=== PATIENT | male | born 1970 | race Caucasian/White ===

== ENCOUNTER 2016-10-18 00:12 | Emergency (ER) | payer OTHER ==
[~2016-10-18 00:12] MED LIST: ACETAMINOPHEN PO; ACETAMINOPHEN325 MG PO; ACETAMINOPHEN500 M2 PO; ACETAMINOPHEN650 M4 PO; ADVAIR 250-501 EACH IH; ALB/IPRATROPIUM/1 E1 INH; ALBUTEROL 0.5ML; ALBUTEROL 0.5ML INH; ALBUTEROL17 G1 IH; ALBUTEROL17 GM; ALBUTEROL17 GM INH; ALBUTEROL2.5 MG/0.5 IH; ALBUTEROL20 ml INH; AMITRYPTYLINE PO; AMLODIPINE BESYL5 MG PO; ASPIRIN PO; ASPIRIN81 M2 PO; ATARAX PO; AUGMENTIN PO; BACTRIM DS TABL1 TA1 PO; BACTROBAN22 GM TP; CELEXA PO; CELEXA10 MG PO; CERTAGEN PO; CIPRO PO; COMBIVENT INH14.7 GM INH; COMBIVENT MININEB INH; COMBIVENT RESPIM4 GM IH; COMBIVENT RESPIM4 GM INH; COMBIVENT U/D3 M1 INH; COMBIVENT U/D3 M2 INH; DAILY MULTIVITA1 TA1 PO; DALIRESP500 MCG PO; DELTASONE20 MG PO; DEPAKOTE; DEPAKOTE PO; DESYREL100 MG PO; DESYREL300 MG PO; DOXYCYCLINE HY100 M3 PO; DUONEB 2.5-0.5 M3 ML NEB; FERRO-TIME325 MG PO; FERROUS GLUCON324 MG PO; FLEXERIL PO; FLOMAX0.4 M1 PO; FLOMAX0.4 MG PO; FLONASE16 GM; FLUOXETINE HCL40 M1 PO; FOLATE PO; FOLIC ACID PO; FOLIC ACID1 MG PO; FUROSEMIDE40 MG PO; GABAPENTIN800 MG PO; HURRICAINE; HYDROCODON-ACE1 EAC5 PO; HYDROCODON-ACE1 EAC7 PO; HYDROCODON-ACE1 EAC9 PO; HYDROCODONE-A1 UDTA4 PO; HYDROCODONE-APA1 T30 PO; HYDROCODONE/APA1 T16 PO; HYDROXYZINE HCL50 MG PO; IBUPROFEN800 MG PO; IRON TABLETS1 TAB PO; IRON325 ( 65 ) PO; IRON325 ( 651 PO; K-DUR20 ME2 PO; KCL PO; KEFLEX PO; LASIX PO; LASIX20 MG PO; LEVAQUIN750 MG PO; LEVOFLOXACIN750 MG PO; LIBRAX CAPSULE1 CAP PO; LIBRIUM PO; LISINOPRIL10 MG PO; LOPRESSOR PO; LORTAB 7.5-3251 EACH PO; LORTAB 7.5-5001 TAB PO; MEDROL DOSEPAK4 MG DOB; MEDROL PO; MEDROL4 MG/DOSE-; METOPROLOL SUCC25 MG PO; METOPROLOL TAR25 MG PO; METOPROLOL TART25 MG PO; MULTI VITAMIN1 EACH PO; MULTI-VIT/MIN P1 TAB PO; MULTIVITAMIN W/1 TAB PO; NEURONTIN PO; NEURONTIN300 MG PO; NEURONTIN800 MG PO; NICOTINE PATCH1 EACH TD; NICOTINE T1 PATCH .2 TOP; NICOTINE TRANSD21 MG EXT; NICOTINE TRANSD21 MG TD; NORCO 10-325 TA1 TAB PO; NORCO1 TAB 10/3 DOB; PERCOCET 7.5-31 EACH PO; PREDNISONE PO; PREDNISONE10 MG PO; PREDNISONE10 MG/DOSE PO; PREVACID; PRILOSEC PO; PRINIVIL5 MG PO; PROAIR RESPICL90 MCG; PROTONIX PO; PROZAC PO; PROZAC40 M1 PO; PROZAC40 MG PO; REQUIP0.25 MG PO; REQUIP0.5 MG PO; REQUIP2 MG PO; RESTORIL7.5 MG PO; ROPINIROLE HCL0.5 MG PO; ROPINIROLE HCL1 MG PO; ROXICODONE5 MG PO; SIMVASTATIN10 MG PO; SPIRIVA18 MCG INH; SYMBICORT INH; SYMBICORT80 INH; THIAMINE HCL100 M2 PO; THIAMINE HCL100 MG PO; TOPAMAX PO; TOPROL XL PO; TRAZADONE PO; TRAZODONE; TRAZODONE HCL100 MG PO; TRAZODONE HCL150 MG PO; TRAZODONE HCL300 MG PO; TRAZODONE PO; TYL325 PO; TYLENOL325 M1 PO; VENTOLIN5 MG/ML; VIBRAMYCIN100 M1 DOB; VISTARIL PO; VISTARIL50 MG PO; ZESTRIL10 M1 PO; ZITHROMAX PO; ZITHROMAX1 G/PKT PO; ZYVOX600 MG PO; [UNRECOGNIZED DRUG - OTHER] PO
== END 2016-10-18 01:31 | disposition left against medical advice (07) ==
LOC: CED 00:12
DX: Z53.21 Procedure and treatment not carried out due to patient leaving prior to being seen by health care provider (principal)

== ENCOUNTER 2016-10-19 13:53 | Emergency (ER) | payer OTHER | END 2016-10-20 07:47 | disposition home or self-care (01) | LOC: CFTX 13:53 | DX: F10.129 Alcohol abuse with intoxication, unspecified (principal); J44.9 Chronic obstructive pulmonary disease, unspecified; I50.9 Heart failure, unspecified; I48.91 Unspecified atrial fibrillation; F32.9 Major depressive disorder, single episode, unspecified; F17.210 Nicotine dependence, cigarettes, uncomplicated; Z79.82 Long term (current) use of aspirin; Z79.899 Other long term (current) drug therapy | CPT/HCPCS: 94640; 99282 ==

== ENCOUNTER 2016-10-23 02:13 | Emergency (ER) | payer OTHER | END 2016-10-23 07:04 | disposition home or self-care (01) | LOC: CED 02:13 | DX: J44.1 Chronic obstructive pulmonary disease with (acute) exacerbation (principal); F10.129 Alcohol abuse with intoxication, unspecified; F17.210 Nicotine dependence, cigarettes, uncomplicated | CPT/HCPCS: 94640; 99283 ==

== ENCOUNTER 2016-10-23 11:26 | Emergency (ER) | payer OTHER ==
--- NOTE | ~2016-10-23 | EKG ---
PATIENT: IVONE JUSTIN UNIT #: [id number] Ventricular Rate: 101 BPM Atrial Rate: 101 BPM P-R Interval: 152 ms QRS Duration: 98 ms Q-T Interval: 342 ms QTC Calculation(Bezet): 443 ms P [place]: 47 degrees Calculated R [place]: -26 degrees Calculated T [place]: 85 degrees Diagnosis Line: Sinus tachycardia Diagnosis Line: Nonspecific T wave abnormality Diagnosis Line: Abnormal ECG Diagnosis Line: Diagnosis Line: Confirmed by SKY ALVAREZ MD ([id number]) on Diagnosis Line: 10/24/2016 11:47:59 AM INTERPRETING MD: ERIN
--- NOTE | ~2016-10-23 | CR72 ---
[facility] A Service of [facility] & [facility] RADIOLOGY TEXT RESULTS PATIENT: IVONE JUSTIN LOCATION: [facility] : 69 UNIT #: [id number] AGE: [address]: Veronica Atwood MD SEX: M ORDER DR: [id number] [facility] [address] [place], [place] [address] [id number] E MR#: [id number] Acc #: [id number] NAME: IVONE JUSTIN : 1970 SEX: M STUDY DATE/TIME: 10/23/2016 11:50 UNIT: [facility] ROOM: STUDY DESCRIPTION: CR Chest Single View Portable Attending Physician: Veronica Atwood M.D. Ordering Physician: Veronica Awtood M.D. Primary Care Physician: No Primary Care Physician MEDICAL IMAGING REPORT This report is preliminary unless electronic signature is present EXAM Single portable AP view of the chest performed on 10/23/2016 at 1150 hours. CLINICAL HISTORY 46-year-old male with shortness of breath. FINDINGS In comparison to the previous exam of 10/21/2016, there has been improvement in the aeration of the left lung base. No acute pulmonary infiltrate or consolidation is seen. The heart remains borderline enlarged. No pneumothorax or pleural effusion is now present. Some granulomatous calcifications are noted particularly in the right lung base. IMPRESSION Stable cardiac enlargement but improvement in the aeration of the left lung base since 10/21/2016. Remaining heart and lungs unchanged. Dictated by... Pio Ortiz M.D. THIS IS AN ELECTRONICALLY VERIFIED REPORT Pio Ortiz M.D. at 10/23/2016 7:02 PM RP/jennifer TD: 10/23/2016 14:02 JOB #: [id number] MEDICAL IMAGING REPORT COPY
[2016-10-23 12:46] LABS: INFLUENZA A NEG (NEG); INFLUENZA B NEG (NEG)
[2016-10-23 13:45] LABS: POC - CKMB 1.7 ng/mL (0.0-7.9); POC - TROPONIN <0.05 ng/mL (<=0.05)
[2016-10-23 13:56] LABS: BASOPHIL% 0.2 % (0-2.5); HEMATOCRIT 34.9 % (38.0-50.0); HEMOGLOBIN 11.2 gm/dL (13.0-16.0); LYMPHOCYTE# 0.5 X10e3 (1.0-3.5); LYMPHOCYTE% 8.7 % (17.0-45.0); MEAN CELL VOLUME 86.1 FL (83-96); MEAN CORPUSCULAR HEMOGLOBIN 27.6 PG (28-34); MEAN CORPUSCULAR HGB CONC 32.1 g/dL (30-36); MEAN PLATELET VOLUME 7.4 FL (6.5-11.5); MONOCYTE# 0.3 X10e3 (0-1.0); MONOCYTE% 6.4 % (3.0-12.0); NEUTROPHIL# 4.5 X10e3 (1.5-7.1); NEUTROPHIL% 84.7 % (40-75); PLATELET COUNT 176 X10e3 (140-420); RED BLOOD COUNT 4.05 X10e (3.90-5.60); RED CELL DISTRIBUTION WIDTH 18.7 % (11.0-15.5); WHITE BLOOD COUNT 5.3 X10e3 (4.0-10.5)
[2016-10-23 14:01] LABS: DIFF IND NO
[2016-10-23 14:12] LABS: PARTIAL THROMBOPLASTIN TIME 20.9 SECONDS (23.5-31.3); PROTHROMBIN TIME (PATIENT) 10.6 SECONDS (9.6-11.5)
[2016-10-23 14:23] LABS: ALBUMIN SERUM 3.6 g/dL (3.5-5.0); ALKALINE PHOSPHATASE 106 U/L (32-92); ALT (SGPT) 46 U/L (10-40); AST (SGOT) 29 U/L (10-42); BILIRUBIN, DIRECT 0.1 mg/dL (0.0-0.2); BILIRUBIN,INDIRECT 0.2 mg/dL (0.0-0.9); BILIRUBIN,TOTAL 0.3 mg/dL (0.2-2.0); BLOOD UREA NITROGEN 7 mg/dL (9-23); BUN/CREATININE RATIO 11.66; CARBON DIOXIDE 29 mmol/L (22-31); CHLORIDE 101 mmol/L (100-111); CREATININE SERUM 0.6 mg/dL (0.6-1.4); GLOM FILT RATE Estimated ABOVE60 mL/min (>60); GLUCOSE FASTING 147 mg/dL (70-110); POTASSIUM 3.8 mmol/L (3.5-5.1); PROTEIN TOTAL SERUM 6.6 g/dL (6.0-8.3); SODIUM 142 mmol/L (135-145)
== END 2016-10-23 14:40 | disposition home or self-care (01) ==
LOC: CED 11:26
PROVIDERS: Emergency Medicine
DX: J44.1 Chronic obstructive pulmonary disease with (acute) exacerbation (principal); F10.129 Alcohol abuse with intoxication, unspecified; F32.9 Major depressive disorder, single episode, unspecified; Z86.718 Personal history of other venous thrombosis and embolism; Z86.711 Personal history of pulmonary embolism; F17.200 Nicotine dependence, unspecified, uncomplicated
CPT/HCPCS: 36415; 71010; 80048; 80076; 82553; 83880; 84484; 85025; 85610; 85730; 87804; 93005; 96365; 96375; 99284; G0480; J2930; J3475

== ENCOUNTER 2016-10-23 18:51 | Emergency (ER) | payer OTHER | END 2016-10-24 06:52 | disposition home or self-care (01) | LOC: CED 18:51 | DX: F10.129 Alcohol abuse with intoxication, unspecified (principal); Y90.9 Presence of alcohol in blood, level not specified; J44.9 Chronic obstructive pulmonary disease, unspecified; I10 Essential (primary) hypertension; I48.91 Unspecified atrial fibrillation; F17.200 Nicotine dependence, unspecified, uncomplicated; Z88.8 Allergy status to other drugs, medicaments and biological substances; Z79.899 Other long term (current) drug therapy | CPT/HCPCS: 94640; 99282 ==

== ENCOUNTER 2016-10-25 14:07 | Emergency (ER) | payer OTHER ==
--- NOTE | ~2016-10-25 | CR72 ---
[facility] A Service of [facility] RADIOLOGY TEXT RESULTS PATIENT: IVONE JUSTIN LOCATION: [facility] : 68 UNIT #: [id number] AGE: [address]: Sienna Perez MD SEX: M ORDER DR: [id number] [address] [place], [place] [address] [id number] E MR#: [id number] Acc #: [id number] NAME: IVONE JUSTIN : 1970 SEX: M STUDY DATE/TIME: 10/25/2016 11:07 UNIT: [facility] ROOM: STUDY DESCRIPTION: CR Chest Single View Portable Attending Physician: Sienna Perez M.D. Ordering Physician: Sienna Perez M.D. Primary Care Physician: No Primary Care Physician MEDICAL IMAGING REPORT This report is preliminary unless electronic signature is present EXAM Portable chest x-ray, 10/25/2016. HISTORY Short of air. Irregular heartbeat, seizures, anxiety, depression. Drinks 1/2 gallon vodka daily. Body pain, EtOH. Symptoms began this a.m. TECHNIQUE AP radiograph of the chest is presented. COMPARISON 10/14/2016 FINDINGS Evidence of prior orthopedic intervention left humerus. No acute-appearing bony abnormality. Stable mild cardiac enlargement. Lung volumes moderate. Linear scarring at the left lung base stable. Calcified granulomata right lung base stable. No acute pulmonary disease, pleural effusion, or pneumothorax. No suspicious nodule. Dictated by... Kirby Allan M.D. THIS IS AN ELECTRONICALLY VERIFIED REPORT Kirby Allan M.D. at 10/26/2016 11:43 AM NIKIA/jennifer TD: 10/25/2016 14:19 JOB #: [id number] MEDICAL IMAGING REPORT [facility] A Service [facility] RADIOLOGY TEXT RESULTS PATIENT: IVONE JUSTIN LOCATION: [facility] : 68 UNIT #: [id number] AGE: [address]: Sienna Perez MD SEX: M ORDER DR: COPY
== END 2016-10-25 15:00 | disposition home or self-care (01) ==
LOC: CED 14:07
DX: F10.129 Alcohol abuse with intoxication, unspecified (principal); F17.200 Nicotine dependence, unspecified, uncomplicated; Z88.8 Allergy status to other drugs, medicaments and biological substances; Z79.899 Other long term (current) drug therapy; Z79.82 Long term (current) use of aspirin
CPT/HCPCS: 71010; 94640; 99283

== ENCOUNTER 2016-11-01 23:58 | Emergency (ER) | payer OTHER | END 2016-11-02 04:05 | disposition left against medical advice (07) | LOC: CED 23:58 | DX: F10.229 Alcohol dependence with intoxication, unspecified (principal); F17.210 Nicotine dependence, cigarettes, uncomplicated; R56.9 Unspecified convulsions; K21.9 Gastro-esophageal reflux disease without esophagitis; J44.9 Chronic obstructive pulmonary disease, unspecified; Z88.8 Allergy status to other drugs, medicaments and biological substances; Z91.018 Allergy to other foods | CPT/HCPCS: 99282 ==

== ENCOUNTER 2016-11-02 08:00 | Emergency (ER) | payer OTHER ==
--- NOTE | ~2016-11-02 | EKG ---
PATIENT: IVONE JUSTIN UNIT #: [id number] Ventricular Rate: 91 BPM Atrial Rate: 91 BPM P-R Interval: 158 ms QRS Duration: 100 ms Q-T Interval: 342 ms QTC Calculation(Bezet): 420 ms P [place]: 33 degrees Calculated R [place]: -16 degrees Calculated T [place]: 58 degrees Diagnosis Line: Sinus rhythm with frequent Premature ventricular Diagnosis Line: complexes Diagnosis Line: Otherwise normal ECG Diagnosis Line: No previous ECGs available Diagnosis Line: Confirmed by IZAIAH CANAS MD ([id number]) on 11/02/2016 Diagnosis Line: 5:46:28 PM INTERPRETING MD: FLORESITA CARRANZA
--- NOTE | ~2016-11-02 | CR72 ---
[facility] A Service of [facility] & [facility] RADIOLOGY TEXT RESULTS PATIENT: IVONE JUSTIN LOCATION: [facility] : 68 UNIT #: [id number] AGE: [address]: Arielle Hernandez MD SEX: M ORDER DR: [id number] [facility] [address] [place], [place] [address] [id number] E MR#: [id number] Acc #: [id number] NAME: IVONE JUSTIN : 1970 SEX: M STUDY DATE/TIME: 11/02/2016 8:13 UNIT: [facility] ROOM: STUDY DESCRIPTION: CR Chest Single View Portable Attending Physician: Arielle Hernandez M.D. Ordering Physician: Arielle Hernandez M.D. Primary Care Physician: Primary Care Physician No MEDICAL IMAGING REPORT This report is preliminary unless electronic signature is present EXAM Portable chest x-ray, 11/03/2016 HISTORY Chest pain. Heart racing. Symptoms began today. FINDINGS AP left anterior oblique view of the chest is presented. The comparison is from 10/25/2016. Prior orthopedic intervention left humerus. Stable cardiac enlargement. The lungs are well inflated. Minimal linear scarring left lung base. There is no clear indication of acute pulmonary disease, pleural effusion or pneumothorax. No suspicious nodule. Dictated by... Kirby Allan M.D. THIS IS AN ELECTRONICALLY VERIFIED REPORT Kirby Allan M.D. at 11/03/2016 7:54 AM Patti TD: 11/02/2016 09:38 JOB #: [id number] MEDICAL IMAGING REPORT COPY
[2016-11-02 08:47] LABS: BASOPHIL% 0.3 % (0-2.5); EOSINOPHIL% 0.2 % (0.0-7.0); HEMATOCRIT 33.1 % (38.0-50.0); HEMOGLOBIN 10.7 gm/dL (13.0-16.0); LYMPHOCYTE% 32.1 % (17.0-45.0); MEAN CELL VOLUME 87.1 FL (83-96); MEAN CORPUSCULAR HEMOGLOBIN 28.2 PG (28-34); MEAN CORPUSCULAR HGB CONC 32.3 g/dL (30-36); MEAN PLATELET VOLUME 8.2 FL (6.5-11.5); MONOCYTE# 1.1 X10e3 (0-1.0); MONOCYTE% 18.3 % (3.0-12.0); NEUTROPHIL% 49.1 % (40-75); PLATELET COUNT 135 X10e3 (140-420); RED CELL DISTRIBUTION WIDTH 18.9 % (11.0-15.5); WHITE BLOOD COUNT 6.2 X10e3 (4.0-10.5)
[2016-11-02 08:48] LABS: DIFF IND NO
[2016-11-02 09:23] LABS: ALBUMIN SERUM 3.4 g/dL (3.5-5.0); ALKALINE PHOSPHATASE 72 U/L (32-92); ALT (SGPT) 176 U/L (10-40); AST (SGOT) 90 U/L (10-42); BILIRUBIN, DIRECT 0.1 mg/dL (0.0-0.2); BILIRUBIN,INDIRECT 0.1 mg/dL (0.0-0.9); BILIRUBIN,TOTAL 0.2 mg/dL (0.2-2.0); BLOOD UREA NITROGEN 20 mg/dL (9-23); BUN/CREATININE RATIO 22.22; CALCIUM SERUM 8.8 mg/dL (8.4-10.2); CARBON DIOXIDE 26 mmol/L (22-31); CHLORIDE 93 mmol/L (100-111); CREATININE SERUM 0.9 mg/dL (0.6-1.4); GLOM FILT RATE Estimated ABOVE60 mL/min (>60); GLUCOSE FASTING 149 mg/dL (70-110); LIPASE 30 U/L (22-51); POTASSIUM 3.5 mmol/L (3.5-5.1); PROTEIN TOTAL SERUM 5.8 g/dL (6.0-8.3); SODIUM 130 mmol/L (135-145)
[2016-11-02 09:26] LABS: ALCOHOL BLOOD 308 mg/dL (0)
[2016-11-02 09:50] LABS: URINE SOURCE CLEAN CATCH
[2016-11-02 09:54] LABS: URINE APPEARANCE CLOUDY; URINE BILIRUBIN NEG (NEG); URINE BLOOD 3+ (NEG); URINE COLOR YELLOW; URINE GLUCOSE NEG (NEG); URINE KETONE TRACE (NEG); URINE LEUKOCYTE ESTERASE NEG (NEG); URINE NITRATE NEG (NEG); URINE PROTEIN 1+ (NEG); URINE SPECIFIC GRAVITY 1.021 (1.003-1.035); URINE UROBILINOGEN 0.2 MG/DL (NEG)
[2016-11-02 09:57] LABS: URBCS1 AUWI 100-200 /[HPF] (0-2); URINE BACTERIA AUWI NEG (NEGATIVE); URINE SQUAMOUS EPITHELIAL CELL OCC /[HPF]
[2016-11-02 10:08] LABS: CULTURE INDICATED? NO
[2016-11-02 10:09] LABS: URINE MUCUS PRESENT
[2016-11-02 10:22] LABS: AMPHETAMINE NEG (NEG); BARBITURATES NEG (NEG); BENZODIAZEPINES POS (NEG); COCAINE NEG (NEG); MARIJUANA NEG (NEG); OPIATES POS (NEG); TRICYCLIC ANTIDEPRESSANTS NEG (NEG); U METHADONE NEG (NEG)
== END 2016-11-02 14:18 | disposition left against medical advice (07) ==
LOC: CED 08:00
PROVIDERS: Student in an Organized Health Care Education/Training Program
DX: F10.129 Alcohol abuse with intoxication, unspecified (principal); I95.9 Hypotension, unspecified; R79.89 Other specified abnormal findings of blood chemistry; J44.9 Chronic obstructive pulmonary disease, unspecified; F17.200 Nicotine dependence, unspecified, uncomplicated; Z91.018 Allergy to other foods; Z88.8 Allergy status to other drugs, medicaments and biological substances
CPT/HCPCS: 36415; 71010; 80048; 80076; 80307; 81003; 82550; 83605; 83690; 83735; 83880; 85025; 87040; 93005; 94640; 96361; 96365; 96366; 96375; 99284; C9113; G0480; J2405; J3411; J3475

== ENCOUNTER 2016-11-02 18:25 | Emergency (ER) | payer OTHER | END 2016-11-02 23:48 | disposition home or self-care (01) | LOC: CED 18:25 | DX: F10.129 Alcohol abuse with intoxication, unspecified (principal); J44.9 Chronic obstructive pulmonary disease, unspecified; K21.9 Gastro-esophageal reflux disease without esophagitis; I50.9 Heart failure, unspecified; F17.200 Nicotine dependence, unspecified, uncomplicated | CPT/HCPCS: 99282 ==

== ENCOUNTER 2016-11-05 21:37 | Emergency (ER) | payer OTHER ==
--- NOTE | ~2016-11-05 | CR72 ---
[facility] A Service of [facility] & [facility] RADIOLOGY TEXT RESULTS PATIENT: IVONE JUSTIN LOCATION: [facility] : 68 UNIT #: [id number] AGE: [address]: Vlad Gomez MD SEX: M ORDER DR: [id number] [facility] [address] [place], [place] [address] [id number] E MR#: [id number] Acc #: [id number] NAME: IVONE JUSTIN : 1970 SEX: M STUDY DATE/TIME: 11/05/2016 21:18 UNIT: [facility] ROOM: STUDY DESCRIPTION: CR Chest Single View Portable Attending Physician: Vlad Gomez Ordering Physician: Odilon Sherman D.O. Primary Care Physician: Primary Care Physician No MEDICAL IMAGING REPORT This report is preliminary unless electronic signature is present EXAM Portable chest, 11/05/2016 HISTORY Shortness of breath, dizziness and chest pain today. FINDINGS The heart is enlarged but stable compared with 11/03/2016. There is poor inspiratory result with bibasilar discoid atelectasis. Underlying COPD. There are no pleural effusions. IMPRESSION No change compared with 11/03/2016. Dictated by... Dev Reyes M.D. THIS IS AN ELECTRONICALLY VERIFIED REPORT Dev Reyes M.D. at 11/06/2016 10:50 AM MICKEY/ousmane TD: 11/06/2016 04:48 JOB #: [id number] MEDICAL IMAGING REPORT COPY
--- NOTE | ~2016-11-05 | EKG ---
PATIENT: IVONE JUSTIN UNIT #: [id number] Ventricular Rate: 76 BPM Atrial Rate: 76 BPM P-R Interval: 164 ms QRS Duration: 98 ms Q-T Interval: 390 ms QTC Calculation(Bezet): 438 ms P [place]: 54 degrees Calculated R [place]: -26 degrees Calculated T [place]: 31 degrees Diagnosis Line: Normal sinus rhythm Diagnosis Line: Incomplete right bundle branch block Diagnosis Line: Borderline ECG Diagnosis Line: When compared with ECG of 02-NOV-2016 07:42, Diagnosis Line: Premature ventricular complexes are no longer Diagnosis Line: Present Diagnosis Line: Incomplete right bundle branch block is now Diagnosis Line: Present Diagnosis Line: Confirmed by BISHNU SWANSON MD ([id number]) on Diagnosis Line: 11/06/2016 3:26:43 PM INTERPRETING MD: SKY CARRANZA
[2016-11-06 00:31] LABS: BASOPHIL# 0.1 X10e3 (0-0.3); BASOPHIL% 1.1 % (0-2.5); EOSINOPHIL% 0.4 % (0.0-7.0); HEMATOCRIT 34.7 % (38.0-50.0); HEMOGLOBIN 10.8 gm/dL (13.0-16.0); LYMPHOCYTE# 1.6 X10e3 (1.0-3.5); LYMPHOCYTE% 29.3 % (17.0-45.0); MEAN CELL VOLUME 88.8 FL (83-96); MEAN CORPUSCULAR HEMOGLOBIN 27.7 PG (28-34); MEAN CORPUSCULAR HGB CONC 31.2 g/dL (30-36); MEAN PLATELET VOLUME 7.8 FL (6.5-11.5); MONOCYTE# 0.6 X10e3 (0-1.0); MONOCYTE% 11.4 % (3.0-12.0); NEUTROPHIL# 3.1 X10e3 (1.5-7.1); NEUTROPHIL% 57.8 % (40-75); PLATELET COUNT 172 X10e3 (140-420); RED BLOOD COUNT 3.91 X10e (3.90-5.60); RED CELL DISTRIBUTION WIDTH 19.8 % (11.0-15.5); WHITE BLOOD COUNT 5.4 X10e3 (4.0-10.5)
[2016-11-06 00:34] LABS: DIFF IND NO
[2016-11-06 00:57] LABS: ALBUMIN SERUM 3.3 g/dL (3.5-5.0); ALKALINE PHOSPHATASE 89 U/L (32-92); ALT (SGPT) 84 U/L (10-40); AST (SGOT) 26 U/L (10-42); BILIRUBIN, DIRECT 0.1 mg/dL (0.0-0.2); BILIRUBIN,INDIRECT 0.3 mg/dL (0.0-0.9); BILIRUBIN,TOTAL 0.4 mg/dL (0.2-2.0); BLOOD UREA NITROGEN <5 mg/dL (9-23); CALCIUM SERUM 8.9 mg/dL (8.4-10.2); CARBON DIOXIDE 26 mmol/L (22-31); CHLORIDE 102 mmol/L (100-111); CREATININE SERUM 0.4 mg/dL (0.6-1.4); GLOM FILT RATE Estimated ABOVE60 mL/min (>60); GLUCOSE FASTING 112 mg/dL (70-110); POTASSIUM 3.7 mmol/L (3.5-5.1); PROTEIN TOTAL SERUM 5.8 g/dL (6.0-8.3); SODIUM 139 mmol/L (135-145)
== END 2016-11-06 07:20 | disposition left against medical advice (07) ==
LOC: CED 21:37
PROVIDERS: Emergency Medicine
DX: R04.2 Hemoptysis (principal); F10.129 Alcohol abuse with intoxication, unspecified; J44.9 Chronic obstructive pulmonary disease, unspecified; I48.91 Unspecified atrial fibrillation; I10 Essential (primary) hypertension; F17.210 Nicotine dependence, cigarettes, uncomplicated; Z88.8 Allergy status to other drugs, medicaments and biological substances
CPT/HCPCS: 71010; 80048; 80076; 82947; 85025; 93005; 94640; 99283; 99284

== ENCOUNTER 2016-11-07 17:39 | Inpatient (IN) | payer OTHER ==
--- NOTE | ~2016-11-07 | DS ---
Unit #: [id number] #: [id number] Patient: IVONE JUSTIN [id number] [place] [address] [id number] I MR#: [id number] NAME: IVONE JUSTIN ROOM: [facility] Age: 46 Sex: M Admission Date: 11/07/2016 : 1970 Discharge Date: 11/14/2016 Attending Physician: Anish Ramos M.D. Primary Care Physician: Primary Care Physician No DISCHARGE SUMMARY REASON FOR ADMISSION The patient is a 46-year-old white male, admitted to the [facility] with increasing abuse of alcohol and suicidal ideation. HOSPITAL COURSE The patient was admitted to the [facility] and placed on suicide precautions. Unfortunately, no bed became available in one of the chemical dependency treatment units, so the patient's detox was undertaken on the [facility] unit. He was continued on previously prescribed medications and Motrin 800 mg q.i.d. was added for bruising and bruised ribs. The patient complained of cough and was begun on Humibid LA, Mucinex. His detox was a bit more arduous than previous detoxifications have been, probably owing to the fact that the patient had been out of the hospital and had been drinking more heavily for some time. By 11/14/2016, however, the patient's detox was complete. He exhibited no signs or symptoms of withdrawal and discharge was ordered. FINAL DIAGNOSES Dysthymic disorder, alcohol use disorder, benign prostatic hypertrophy, chronic obstructive pulmonary disease, chronic pain, restless legs syndrome, benign prostatic hypertrophy. DISPOSITION ON DISCHARGE The patient is discharged on the following lengthy list of medications; Humibid LA, Mucinex 600 mg b.i.d. for cough, Lotrisone apply b.i.d. to affected areas for rash, Symbicort 2 puffs b.i.d. for shortness of air, Proventil HFA 2 puffs q.4 hours p.r.n. shortness of air, Flomax 0.4 mg daily for benign prostatic hypertrophy, Requip 0.25 mg at bedtime for restless legs syndrome, Protonix 40 mg once daily for GERD, Motrin 800 mg q.8 hours p.r.n. pain, Neurontin 800 mg q.i.d. for pain, Lasix 20 mg daily for diuresis, Desyrel 300 mg at h.s. for insomnia, Prozac 40 mg daily for depression, Vistaril 50 mg q.6 hours p.r.n. anxiety. DISCHARGE INSTRUCTIONS No dietary or physical restrictions were placed upon the patient at the time of discharge. FOLLOWUP Followup will take place through the auspices of community mental health resources. PROGNOSIS The patient's prognosis remains guarded. Unit #: [id number] #: [id number] Patient: IVONE JUSTIN Dictated by... Anish Ramos M.D. CB/favian TD: 11/15/2016 01:27 JOB #: [id number] DISCHARGE SUMMARY Page 1 of 1 X Anish Ramos MD X DISCHARGE SUMMARY
--- NOTE | ~2016-11-07 | PN ---
Unit #: [id number] #: [id number] Patient: IVONE JUSTIN [id number] [facility] [address] [place] [address] [id number] I MR#: [id number] NAME: IVONE JUSTIN ROOM: [facility]6 Age: 46 Sex: M Admission Date: 11/07/2016 : 1970 Attending Physician: Anish Ramos M.D. Admitting Physician: Anish Ramos M.D. Primary Care Physician: Primary Care Physician Emma RUTH PROGRESS NOTES DATE 11/10/2016 DISCUSSION The patient offers no new complaints today. He denies suicidal ideation, and his detox continues uneventfully. He is looking towards [facility] house placement, and I have told him to expect a.m. discharge. Dictated by... Anish Ramos M.D. CB/cleo TD: 11/11/2016 07:03 JOB #: [id number] [facility] PROGRESS NOTES X Anish Ramos MD PROGRESS NOTE
--- NOTE | ~2016-11-07 | PN ---
Unit #: [id number] #: [id number] Patient: IVONE JUSTIN [id number] [facility] [address] [place] [address] [id number] I MR#: [id number] NAME: IVONE JUSTIN ROOM: [facility] Age: 46 Sex: M Admission Date: 11/07/2016 : 1970 Attending Physician: Anish Ramos M.D. Admitting Physician: Anish Ramos M.D. Primary Care Physician: Primary Care Physician Emma RUTH PROGRESS NOTES DATE 11/11/2016 DISCUSSION The patient is today continuing to exhibit significant symptoms of alcohol withdrawal having required 2 doses of Ativan with his most recent CIWA score at approximately 25 minutes ago of 17. The patient is clearly still in active alcohol withdrawal, and discharge at this point would be unsafe and unwise. We will continue his current treatment. Dictated by... Anish Ramos M.D. CB/cleo TD: 11/11/2016 13:18 JOB #: [id number] [facility] PROGRESS NOTES X Anish Ramos MD PROGRESS NOTE
--- NOTE | ~2016-11-07 | PN ---
Unit #: [id number] #: [id number] Patient: IVONE JUSTIN [id number] [facility] [address] [place] [address] [id number] I MR#: [id number] NAME: IVONE JUSTIN ROOM: [facility]6 Age: 46 Sex: M Admission Date: 11/07/2016 : 1970 Attending Physician: Anish Ramos M.D. Admitting Physician: Anish Ramos M.D. Primary Care Physician: Primary Care Physician Emma RUTH PROGRESS NOTES DATE 11/09/2016 DISCUSSION The patient exhibits little in the way of signs or symptoms of withdrawal today. His expectations of inpatient care are today firmly redirected. He is expressing interest in residential chemical dependence treatment, but it is my belief that the patient has "burned bridges" with most if not all of the residential treatment facilities in the area. Dictated by... Anish Ramos M.D. CB/cleo TD: 11/09/2016 14:35 JOB #: [id number] [facility] PROGRESS NOTES X Anish Ramos MD PROGRESS NOTE
--- NOTE | ~2016-11-07 | PN ---
Unit #: [id number] #: [id number] Patient: IVONE JUSTIN [id number] [facility] [address] [place] [address] [id number] Shelia MR#: [id number] NAME: IVONE JUSTIN ROOM: [facility] Age: 46 Sex: M Admission Date: 11/07/2016 : 1970 Attending Physician: Anish Ramos M.D. Admitting Physician: Anish Ramos M.D. Primary Care Physician: Primary Care Physician Emma RUTH PROGRESS NOTES DATE 11/12/2016 DISCUSSION The patient continues to complain of severe symptoms of withdrawal. He remains tremulous and continues to require Ativan at virtually every stop. I will discontinue his CIWA protocol and base Ativan on objective vital signs rather than subjective symptoms at this time. Dictated by... Anish Ramos M.D. CB/laila TD: 11/12/2016 21:00 JOB #: [id number] [facility] PROGRESS NOTES X Anish Ramos MD PROGRESS NOTE
--- NOTE | ~2016-11-07 | HP ---
Unit #: [id number] #: [id number] Patient: TESSA JUSTIN [id number] [place] [address] [id number] I MR#: [id number] NAME: TESSA JUSTIN ROOM: [facility]256 Age: 46 Sex: M Admission Date: 11/07/2016 : 1970 Attending Physician: Anish Ramos M.D. Admitting Physician: Anish Ramos M.D. Primary Care Physician: Primary Care Physician No HISTORY AND PHYSICAL HISTORY OF PRESENT ILLNESS Tessa is a 46 year old admitted to [address] [place] [address] because of his continued abuse of alcohol. He has had numerous admissions to this facility for treatment of the same. PAST MEDICAL HISTORY 1. Long history of alcohol abuse. 2. COPD. 3. Morbid obesity. 4. GERD. 5. History of withdrawal seizures. 6. High blood pressure. 7. BPH. PAST SURGICAL HISTORY Nothing reported. ALLERGIES Morphine, Risperdal, Remeron. SOCIAL HISTORY Smokes 1 pack per day. Drinks alcohol on daily basis and denies illicit drug use. FAMILY HISTORY Medically noncontributory. REVIEW OF SYSTEMS CONSTITUTIONAL: No fever or chills. HEENT: Denies any sore throat, ear pain or runny nose. CARDIOVASCULAR: Denies chest pain, irregular heart rhythm or palpitations. CHEST: Denies shortness of breath or cough. No hemoptysis. GASTROINTESTINAL: Denies nausea, vomiting, diarrhea or chronic constipation. ENDOCRINE: Denies history of increased thirst or urination. No recent significant weight loss or gain. GENITOURINARY: Denies dysuria, frequency, or hematuria. SKIN: Denies any rashes. HEMATOLOGIC: Denies history of increased bleeding or bruising. MUSCULOSKELETAL: Denies any hot, swollen joints. No generalized muscle pain. NEUROLOGIC: Denies problems with vision or speech. No frequent, severe headaches. No numbness, tingling or weakness in any extremities. Denies Unit #: [id number] #: [id number] Patient: TESSA JUSTIN loss of bladder or bowel control. CURRENT MEDICATIONS 1. Detox protocol. 2. Trazodone 300 mg q.h.s. 3. Symbicort b.i.d. 4. Proventil inhaler p.r.n. 5. Flomax 0.4 mg daily. 6. Ibuprofen 800 mg q. 8 hours p.r.n. PHYSICAL EXAMINATION GENERAL: Alert, morbidly obese, no apparent distress. VITAL SIGNS: Blood pressure 140/72, heart rate 80, respirations 16, temperature 98.6. WEIGHT: 286. HEIGHT: 6 feet 4 inches. SKIN: Warm and dry without rash or lesion. HEENT: Normocephalic. TMs not viewed. Oral and nasal passages clear. Conjunctivae clear. PERRLA. EOMs intact. NECK: Supple without lymphadenopathy or thyromegaly. HEART: Regular rate and rhythm without murmur. LUNGS: Clear. ABDOMEN: Soft, nontender. : Not done. EXTREMITIES: No evidence of cyanosis, clubbing or edema. Moves all without focal deficit. NEUROLOGICAL: Grossly within normal limits. Cranial Nerves: II: Visual faulkner are intact. III, IV AND : Extraocular movements are intact. Pupils are equal, round and reactive to light. V: Facial sensation is grossly normal. VII: Facial movements and expression are normal. VIII: Auditory acuity grossly intact. IX, X: Uvula is midline. Phonation is normal. XI: Patient shrugs shoulders and turns head normally. XII: Tongue protrudes in the midline. Sensory and Motor Function: Sensory and motor sensation is grossly normal. Motor: moves all extremities well. Coordination: Gait is normal. Deep Tendon Reflexes: Intact. IMPRESSION Psychiatric admission. RECOMMENDATIONS PSYCHIATRIC: Per psychiatrist. MEDICAL: See no contraindications to participate in facility's activities. MEDICAL PROGNOSIS Good. MEDICAL CONDITION Stable. Dictated by... Tonia Jason P.A.-C. for Uli Hussein M.D. Unit #: [id number] #: [id number] Patient: TESSA JUSTIN JKATIE/dzh TD: 11/08/2016 18:34 JOB #: [id number] HISTORY AND PHYSICAL X Tonia Jason HISTORY AND PHYSICAL
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
--- NOTE | ~2016-11-07 | PN ---
Unit #: [id number] #: [id number] Patient: IVONE JUSTIN [id number] [facility] [address] [place] [address] [id number] MR#: [id number] NAME: IVONE JUSTIN ROOM: [facility]6 Age: 46 Sex: M Admission Date: 11/07/2016 : 1970 Attending Physician: Anish Ramos M.D. Admitting Physician: Anish Ramos M.D. Primary Care Physician: Primary Care Physician Emma RUTH PROGRESS NOTES DATE 11/13/2016 DISCUSSION The patient continues to exhibit some tachycardia possibly related to withdrawal but more likely related to his chronic obstructive pulmonary disease. I have told him to expect a.m. discharge. Dictated by... Anish Ramos M.D. KEARA/laila TD: 11/13/2016 18:46 JOB #: [id number] [facility] PROGRESS NOTES Page 1 of 1 X Anish Ramos MD X PROGRESS NOTE
== END 2016-11-14 14:45 | disposition home or self-care (01) | DRG 897 ==
LOC: P2S 17:39 → P2L 18:07
PROC: HZ2ZZZZ Detoxification Services for Substance Abuse Treatment (ICD-10-PCS; principal; 2016-11-07)
DX: F10.10 Alcohol abuse, uncomplicated (principal); E66.01 Morbid (severe) obesity due to excess calories; F34.1 Dysthymic disorder; F17.210 Nicotine dependence, cigarettes, uncomplicated; N40.0 Benign prostatic hyperplasia without lower urinary tract symptoms; J44.9 Chronic obstructive pulmonary disease, unspecified; G25.81 Restless legs syndrome
CPT/HCPCS: 86592

== ENCOUNTER 2016-11-14 19:39 | Emergency (ER) | payer OTHER ==
--- NOTE | ~2016-11-14 | CR72 ---
[facility] A Service of [facility] & [facility] RADIOLOGY TEXT RESULTS PATIENT: IVONE JUSTIN LOCATION: [facility] : [birth year] UNIT #: [id number] AGE: [address]: Vlad Moya MD SEX: M ORDER DR: [id number] [facility] [address] [place], [place] [address] [id number] E MR#: [id number] Acc #: [id number] NAME: IVONE JUSTIN : 1970 SEX: M STUDY DATE/TIME: 11/14/2016 21:42 UNIT: [facility] ROOM: STUDY DESCRIPTION: CR Chest Single View Portable Attending Physician: Vlad Moya M.D. Ordering Physician: Veronica Atwood M.D. Primary Care Physician: Primary Care Physician No MEDICAL IMAGING REPORT This report is preliminary unless electronic signature is present EXAM Portable chest x-ray 11/14/2016 HISTORY Short of air. Agitated. EtOH. Duration 1 day. FINDINGS AP radiograph of the chest is presented. Comparison 11/05/2016. Stable moderate cardiac enlargement. Lungs moderately well inflated. Pulmonary vasculature mildly prominent suggesting some degree of underlying vascular congestion. Patchy and linear densities in the left mid lung zone likely involve some areas of chronic scarring. Areas of acute atelectasis or mild pneumonitis should be considered as well. There is no dense airspace disease. No definite pleural effusion and no pneumothorax. No suspicious nodule. Healed granulomatous disease. Dictated by... Kirby Allan M.D. THIS IS AN ELECTRONICALLY VERIFIED REPORT Kirby Allan M.D. at 11/15/2016 2:19 PM NIKIA/jonathan TD: 11/15/2016 12:46 JOB #: [id number] MEDICAL IMAGING REPORT Page 1 of 1 COPY
== END 2016-11-15 09:35 | disposition home or self-care (01) ==
LOC: CED 19:39
DX: F10.229 Alcohol dependence with intoxication, unspecified (principal); J96.20 Acute and chronic respiratory failure, unspecified whether with hypoxia or hypercapnia; J44.1 Chronic obstructive pulmonary disease with (acute) exacerbation; F41.9 Anxiety disorder, unspecified; F32.9 Major depressive disorder, single episode, unspecified; I10 Essential (primary) hypertension; K21.9 Gastro-esophageal reflux disease without esophagitis
CPT/HCPCS: 71010; 94640; 96372; 99283; J1100

== ENCOUNTER 2016-11-15 13:30 | Emergency (ER) | payer OTHER | END 2016-11-16 20:34 | disposition left against medical advice (07) | LOC: CED 13:30 | DX: Z53.21 Procedure and treatment not carried out due to patient leaving prior to being seen by health care provider (principal) ==

== ENCOUNTER 2016-11-21 14:19 | Inpatient (IN) | payer OTHER ==
--- NOTE | ~2016-11-21 | XA166 ---
[facility] A Service of [facility] RADIOLOGY TEXT RESULTS PATIENT: IVONE JUSTIN LOCATION: C3A 340-01 : 69 UNIT #: [id number] AGE: [address]: Lm Schofield MD SEX: M ORDER DR: [id number] [id number] [facility]. [place], [place] [address] [id number] MR#: [id number] Acc #: [id number] NAME: IVONE JUSTIN : 1970 SEX: M STUDY DATE/TIME: 11/22/2016 14:11 UNIT: C3A PCU ROOM: 340 STUDY DESCRIPTION: XA PICC Line Placement WO Port Attending Physician: Lm Schofield M.D. Ordering Physician: Monique Maxwell M.D. Primary Care Physician: No Primary Care Physician MEDICAL IMAGING REPORT This report is preliminary unless electronic signature is present EXAM XA PICC line placement without port. DATE OF EXAM 11/22/2016 INDICATION 46-year-old male who needs IV access. PRE-PROCEDURE The procedure was explained to the patient and/or patient franchise sales representative including risks, benefits, potential complications and potential for alternative forms of treatment. Informed consent was obtained, and prior to initiating the procedure a formal timeout procedure was performed. PROCEDURE Using full standard sterile barrier technique, including caps, gowns, gloves, masks, as well as sterile skin preparation and standard sterile draping, the right arm (basilic vein) was prepped and draped in the usual fashion, and real-time sterile ultrasound guidance was used to localize an arm vein and to confirm vessel patency. A hard copy ultrasound image was recorded. After local anesthesia with 1% Xylocaine, the vein was punctured using real-time sterile ultrasound guidance, and an 0.018 guidewire was advanced into the superior vena cava, using fluoroscopic guidance. A 5-Zambian double-lumen (44 cm) PICC was then measured and deployed with the tip positioned in the superior vena cava. The position of the line was documented with a radiographic image. The line was secured in place with an adhesive dressing and an antibiotic patch was applied. Total fluoro time was 0.2 minutes. Reference air kerma 9 mGy. IMPRESSION [facility]. [facility] A Service of [facility] RADIOLOGY TEXT RESULTS PATIENT: IVONE JUSTIN LOCATION: C3A PC 340-01 : 68 UNIT #: [id number] AGE: [address]: Lm Schofield MD SEX: M ORDER DR: Successful placement of a 5-Zambian double-lumen (44 cm) PowerPICC via the right arm (basilic vein) under ultrasound and fluoroscopic guidance. The tip of the PICC is in good position in the superior vena cava. A single fluoroscopic spot image was obtained. Dictated by... Garth Rios M.D. THIS IS AN ELECTRONICALLY VERIFIED REPORT Garth Rios M.D. at 11/22/2016 4:31 PM LUIS/isa TD: 11/22/2016 16:16 JOB #: [id number] MEDICAL IMAGING REPORT Page 1 of 1 COPY
--- NOTE | ~2016-11-21 | EKG ---
PATIENT: IVONE JUSTIN UNIT #: [id number] Ventricular Rate: 79 BPM Atrial Rate: 79 BPM P-R Interval: 166 ms QRS Duration: 94 ms Q-T Interval: 388 ms QTC Calculation(Bezet): 444 ms P [place]: 45 degrees Calculated R [place]: -18 degrees Calculated T [place]: 60 degrees Diagnosis Line: Sinus rhythm with occasional and consecutive Diagnosis Line: Premature ventricular complexes and Fusion Diagnosis Line: complexes Diagnosis Line: Abnormal ECG Diagnosis Line: No previous ECGs available Diagnosis Line: Confirmed by IZAIAH CANAS MD ([id number]) on 11/22/2016 Diagnosis Line: 9:20:46 PM INTERPRETING MD: FLORESITA CARRANZA
--- NOTE | ~2016-11-21 | CR72 ---
[facility] A Service of [facility] RADIOLOGY TEXT RESULTS PATIENT: IVONE JUSTIN LOCATION: G[facility] PC 340-01 : 68 UNIT #: [id number] AGE: [address]: Lm Schofield MD SEX: M ORDER DR: [id number] [facility] [address] [facility]. [place], [place] [address] [id number] MR#: [id number] Acc #: [id number] NAME: IVONE JUSTIN : 1970 SEX: M STUDY DATE/TIME: 11/21/2016 14:34 UNIT: [facility] ROOM: STUDY DESCRIPTION: CR Chest Single View Portable Attending Physician: Veronica Atwood M.D. Ordering Physician: Veronica Atwood M.D. Primary Care Physician: No Primary Care Physician MEDICAL IMAGING REPORT This report is preliminary unless electronic signature is present EXAM Portable chest, 11/21/2016. HISTORY EtOH. Short of air today. Congestive heart failure. Heart disease. TECHNIQUE AP radiograph of the chest is presented. COMPARISON 11/14/2016 FINDINGS No acute-appearing bony abnormality. Healed fracture of the right humeral neck versus severe degenerative change. Stable cardiac enlargement. Lungs moderately well-inflated. Pulmonary vasculature remains prominent, suggesting underlying vascular congestion. Some patchy and linear densities in the left mid to lower lung zone, stable to marginally improved. Some component may represent chronic interstitial change. Components of mild atelectasis or pneumonitis could be considered. No dense airspace disease. No pleural effusion or pneumothorax. No suspicious nodule. Dictated by... Kirby Allan M.D. THIS IS AN ELECTRONICALLY VERIFIED REPORT Kirby Allan M.D. at 11/22/2016 5:13 PM NIKIA/meghana TD: 11/21/2016 18:05 [facility] A Service of [facility] RADIOLOGY TEXT RESULTS PATIENT: IVONE JUSTIN LOCATION: [facility] PC 340-01 : [birth year] UNIT #: [id number] AGE: [address]: Lm Schofield MD SEX: M ORDER DR: JOB #: [id number] MEDICAL IMAGING REPORT Page 1 of 1 COPY
--- NOTE | ~2016-11-21 | CO ---
Unit #: [id number] #: [id number] Patient: TESSA JUSTIN [id number] [facility] [address] [facility]. [place], [place] [address] [id number] I MR#: [id number] NAME: TESSA JUSTIN ROOM: 340 Age: 46 Sex: M Admission Date: 11/21/2016 : 1970 Attending Physician: Lm Schofield M.D. Primary Care Physician: No Primary Care Physician Consultation Date: 11/23/2016 CONSULTATION REPORT REASON FOR CONSULTATION Followup. DISCUSSION Mr. Tessa Justin is a 46-year-old male seen in room 340 on 11/23/16 at [facility]. The patient was compliant, cooperative. The patient denied any thoughts of harming self or others. Compliant, cooperative, able to answer questions appropriately. The patient has a sitter. Reports that he is feeling better and does not feel that he needs to go to [facility]. The patient has been compliant with treatment. Denied any psychotic symptoms or any suicidal ideation. REVIEW OF SYSTEMS A complete review of systems is unremarkable. MENTAL STATUS EXAMINATION General appearance - Patient is dressed casually. Attention span, concentration - Fair. Patient receiving oxygen through nasal cannula. Speech - Regular rate, coherent. Oriented to time, place and person. Mood and affect - Sad, dysphoric. Thought process - Coherent. Thought content - Patient denied any thoughts of harming self or others. Recent and remote memory - Fair. Language - Able to name objects, repeat phrases. Fund of knowledge - Fair. Insight and judgment - Fair to slightly impaired. DIAGNOSIS Alcohol use disorder, severe, F10.20; major depressive disorder, recurrent, severe, F33.2. ASSESSMENT AND PLAN 1. Supportive psychotherapy and psychoeducation provided to the patient. 2. Educated about benefits and side effects of medication and course and prognosis of illness. 3. Advised to discontinue one-to-one sitter at this time and advised discontinue 72-hour hold, as the patient is not endorsing any suicidal ideation. Continue with inpatient treatment. If needed, consider further adjustment of medication. When the patient is medically stable, we will reevaluate. If needed, consider inpatient treatment at [facility]. In the meantime, continue with the treatment here. Please feel free to call with any questions, telephone number . Unit #: [id number] #: [id number] Patient: TESSA JUSTIN Dictated by... Kristy Moise/leland TD: 11/26/2016 15:59 JOB #: [id number] CONSULTATION REPORT Page 1 of 1 X Kevin Gao MD X CONSULTATION REPORT
--- NOTE | ~2016-11-21 | HP ---
Unit #: [id number] #: [id number] Patient: IVONE JUSTIN [id number] [facility] [address] [facility]. [place], [place] [address] [id number] I MR#: [id number] NAME: VIONE JUSTIN ROOM: 85856 Age: 46 Sex: M Admission Date: 11/21/2016 : 1970 Attending Physician: Monique Maxwell M.D. Primary Care Physician: No Primary Care Physician HISTORY AND PHYSICAL CHIEF COMPLAINT Alcohol. HISTORY OF PRESENT ILLNESS The patient is a 46-year-old male with past medical history of alcohol abuse, paroxysmal atrial fibrillation, DVT, PE, COPD, with continued tobacco abuse, GERD, chronic pain, depression, who presented to the emergency department for evaluation of the above. Upon arrival in the emergency department the patient's blood pressure was 97/56. He was initially not cooperative with any treatment. He was unwilling to cooperate. He was removing monitors and blood pressure cuff. He was subsequently given 20 mg of Geodon as well as a total of 4 mg of Ativan, 25 mg of Benadryl and 5 mg/kg of ketamine. The patient told ER staff that he drank rubbing alcohol. He told me that he drank a bottle of mouthwash. He states that he was trying to kill himself. He is really unable to provide much other history. Laboratory is notable for hemoglobin of 9.8, lactic acid 1.2. He is being admitted to [facility] for evaluation and further treatment. PAST MEDICAL HISTORY 1. Admission to [facility] October 07-2016 for acute respiratory failure. 2. Depression. 3. Paroxysmal atrial fibrillation. 4. History of DVT/PE. 5. COPD with continued tobacco abuse. 6. GERD. 7. Chronic pain. PAST SURGICAL HISTORY 1. Testicular surgery. 2. Excision of cyst left neck. 3. Left upper extremity ORIF. 4. Excisional biopsy of anterior chest wall lesion. SOCIAL HISTORY The patient is a daily drinker. Per record review he drinks a half gallon every day. He continues to smoke. There is no illicit drug use. FAMILY HISTORY Family history is notable for congestive heart failure. Unit #: [id number] #: [id number] Patient: IVONE JUSTIN ALLERGIES Zofran and mirtazapine. HOME MEDICATIONS Per the discharge summary include albuterol, Symbicort, Flomax, Neurontin, Prozac, trazodone, Vistaril, Lopressor, Lasix, aspirin, [place], Protonix. Home medications will need to be reviewed and verified. REVIEW OF SYSTEMS A complete review of systems is attempted but somewhat limited due to altered mental status. DIAGNOSTIC STUDIES CARDIOVASCULAR: Chest x-ray shows vascular congestion. LABORATORY: Comprehensive metabolic panel notable for albumin of 3.4. CK is 77. Alcohol is 240. INR is 1. Rapid flu screen is negative. Lactic acid is 1.2. Complete blood count notable for hemoglobin and hematocrit of 9.8 and 31.6 respectively. Urine tox screen is positive for benzodiazepines and barbiturates. Urinalysis is essentially normal. PHYSICAL EXAMINATION VITAL SIGNS: Temperature 99.2. Pulse 81. Respirations 16. Blood pressure 97/56, most recently 126/80. Oxygen saturation is 92% on 4 L. GENERAL: The patient is a male who is chronically ill appearing. He is somewhat lethargic but wakes to physical stimuli. HEENT: The head is atraumatic. Mucous membranes are moist. NECK: Neck is supple. Trachea is midline. CARDIOVASCULAR: Regular rate and rhythm. LUNGS: Demonstrate scattered rhonchi. Breathing is not labored with conversation. ABDOMEN: Abdomen is soft, nontender, with bowel sounds present in all four quadrants. EXTREMITIES: Show 2+ pitting edema of bilateral lower extremities. NEUROLOGIC: The patient is lethargic but wakes to physical stimuli. He follows some commands. PSYCHIATRIC: The patient has a flat affect but was apparently initially quite agitated. ASSESSMENT The patient is a 46-year-old male with: 1. Altered mental status. 2. Alcohol abuse with intoxication. 3. Suicidal ideations. 4. Hypotension that responded to 2 L of normal saline. 5. Chronic anemia. The patient's hemoglobin was 10.8 on November 06. It is 9.8 today. 6. Paroxysmal atrial fibrillation. 7. History of deep vein thrombosis/pulmonary embolism. 8. Chronic obstructive pulmonary disease with continued tobacco abuse. 9. Gastroesophageal reflux disease. 10. Chronic pain. 11. Depression. PLAN 1. Admit to intermediate level. 2. N.p.o. until more awake and passes bedside swallow. 3. Alcohol withdrawal protocol. Unit #: [id number] #: [id number] Patient: IVONE JUSTIN 4. Sitter. 5. A 72-hour hold. 6. Consult Dr. Gao regarding suicidal ideations. 7. Blood cultures x2 for further evaluation of hypotension to rule out possible sepsis. 8. Monitor blood pressure closely. 9. Supplemental oxygen. 10. P.r.n. DuoNeb. 11. Check EKG and cardiac enzymes. 12. Check magnesium level. 13. Potassium and magnesium protocol. 14. Librium. 15. Repeat labs in the morning. 16. Additional workup and consultants based on above. Dictated by Kristy Hernandez/sena TD: 11/21/2016 20:11 JOB #: [id number] HISTORY AND PHYSICAL Page 1 of 1 X Monique Maxwell MD HISTORY AND PHYSICAL
--- NOTE | ~2016-11-21 | CO ---
Unit #: [id number] #: [id number] Patient: TESSA JUSTIN [id number] [facility] [address] [facility]. [place], [place] [address] [id number] I MR#: [id number] NAME: TESSA JUSTIN ROOM: 340 Age: 46 Sex: M Admission Date: 11/21/2016 : 1970 Attending Physician: Lm Schofield M.D. Primary Care Physician: Primary Care Physician No Consultation Date: 11/22/2016 CONSULTATION REPORT CHIEF COMPLAINT Depression and suicidal ideation. DISCUSSION Mr. Tessa Justin is a 46-year-old white male, seen on 11/22/[address] [facility]. The patient dressed in hospital attire. Reported he has broken ribs and feeling sad, depressed, suicidal. The patient was admitted on 11/21/2016 with alcohol abuse. The patient has a longstanding history of alcohol abuse. The patient also made comments about harming himself. The patient unable to contract for safety. The patient has a history of alcohol abuse, paroxysmal atrial fibrillation, DVT, PE, COPD, GERD, chronic pain, depression. The patient has a sitter, compliant, cooperative. Denied any psychotic symptom or any homicidal ideation. PAST PSYCHIATRIC HISTORY Remarkable for history of numerous admission at [facility] for inpatient psychiatric treatment for alcohol as well as for depression. PAST MEDICAL HISTORY History of acute respiratory failure, paroxysmal atrial fibrillation, DVT, PE, COPD, GERD, chronic pain. MEDICATION The patient is on albuterol, Symbicort, Flomax, Neurontin, Prozac, trazodone, Vistaril, Lopressor, Lasix, aspirin, [place], Protonix. ALLERGIES Zofran and mirtazapine. FAMILY HISTORY AND SOCIAL HISTORY Unremarkable. Poor support system. No history of any abuse. History of alcohol abuse. REVIEW OF SYSTEMS Complete review of systems is remarkable for the patient reported pain in his rib cage on the left side and anxiety and depression. MENTAL STATUS EXAMINATION General appearance, the patient is tall, well built, moderately obese. Attention span and concentration, fair. Speech, regular rate and coherent. Oriented in time, place, and person. Mood and affect were sad, dysphoric, depressed. Thought process was concrete, but goal directed. Unit #: [id number] #: [id number] Patient: TESSA JUSTIN Thought content, guarded and paranoid. Reported having suicidal ideation, unable to contract for safety. Denied any homicidal ideation. Recent and remote memory, fair. Language, able to name object and repeat phrases. Fund of knowledge, fair. Insight and judgment, fair to slightly impaired. DIAGNOSES Psychiatric: Major depressive disorder, recurrent, severe, F33.2; alcohol use disorder, severe, F10.20. Secondary diagnosis: Deferred. Medical diagnosis: Please refer to H and P. Stressors: Psychosocial stressor. ASSESSMENT AND PLAN 1. Supportive psychotherapy and psychoeducation provided to the patient. 2. Educated about benefits and side effects of medication and course and prognosis of illness. 3. Recommending at this time to continue with the sitter and 72-hour hold. Advised to transfer the patient to [facility] once the patient is medically stable and follow transfer center for psychiatric stabilization. Please feel free to call if any questions telephone #[phone]. Dictated by... Kevin Gao M.D. CHYNA/favian TD: 11/24/2016 00:01 JOB #: [id number] CONSULTATION REPORT Page 1 of 1 X Kevin Gao MD X CONSULTATION REPORT
--- NOTE | ~2016-11-21 | DS ---
Unit #: [id number] #: [id number] Patient: IVONE JUSTIN [id number] [address] [place], [place] [address] [id number] I MR#: [id number] NAME: IVONE JUSTIN ROOM: 340 Age: 46 Sex: M Admission Date: 11/21/2016 : 1970 Discharge Date: 11/22/2016 Attending Physician: Lm Schofield M.D. Primary Care Physician: No Primary Care Physician DISCHARGE SUMMARY DISCHARGE DIAGNOSES 1. Alcoholic encephalopathy, resolved at this time. 2. Alcohol abuse with intoxication present on admission. 3. Suicidal ideation and persistent ideation: Will have [facility] assess for treatment there. 4. Hypotension: Has resolved with fluid hydration. 5. Chronic anemia: H and H is stable. 6. History of paroxysmal atrial fibrillation, stable at this time. 7. Remote history of deep venous thrombosis and pulmonary embolus. 8. History of chronic obstructive pulmonary disease with continued tobacco use. 9. Gastroesophageal reflux disease. 10. Chronic pain in the back specifically. 11. History of depression. CONSULTANTS 1. Dr. Gao - Psychiatry. 2. [facility]. PROCEDURES None. IMAGING Consists of chest x-ray on 11/21/16. Impression - no acute-appearing bony abnormality. Healed fracture of the right humeral neck versus severe degenerative change. Stable cardiac enlargement. Lungs moderately well-inflated. Pulmonary vasculature remains prominent. Some patchy and linear densities in the left mid to lower lung zone, stable and marginally improved. No effusion or pneumothorax. No suspicious nodule. LABORATORY Labs today consist of BMP - glucose of 70, BUN 9, creatinine 0.7, sodium 137, potassium 3.7, chloride 104, CO2 25, calcium 8.3, magnesium 1.8, total protein 6.0, albumin 3.0, total bilirubin is 0.5, AST 34, ALT 35, alk. phos. 87. Serial cardiac enzyme has been undetectable. CBC with WBC of 5.3, RBC 3.32, hemoglobin 9.0, hematocrit 29.0, MCV 87.4, MCH 27.3, MCHC 31.2, RDW is 19.6, platelets 198, MPV 7.4. HOSPITAL COURSE The patient is a 46-year-old male with a past medical history of alcohol abuse, paroxysmal atrial fibrillation, DVT, PE, COPD, continuing tobacco Unit #: [id number] #: [id number] Patient: IVONE JUSTIN usage, GERD, chronic back pain, depression, who was sent to the emergency department due to alcoholism. Upon arrival to the emergency department, the patient's blood pressure was 97/56. He was initially not cooperative with any treatment. He had removed monitors and blood pressure cuff and was given 16 mg of Geodon as well as 4 mg of Ativan, 25 mg of Benadryl and 5 mg/kg of ketamine. He told the ER physician that he drank rubbing alcohol. The patient relays an attempt of drinking a bottle of mouthwash. He tells me two weeks ago for a suicidal attempt. Was admitted to [facility] due to alcohol intoxication. The patient has also been complaining of chest wall pain on the left side. A chest x-ray shows that he has an old right sided humeral fracture but no rib fractures noted on the chest x-ray. When assessed, urine drug screen is positive for benzos as well as barbiturates. I believe the patient does not have any benzos prescribed to him. Alcohol level was 240. Due to his reproducible chest wall pain, cardiac enzymes were assessed and that was unremarkable. I have reviewed his EKG. It is normal sinus rhythm. No elevated ST. Rate of 73. At the time of my assessment the following day, the patient is medically stable. All of his lab workups are unremarkable at this time. Due to his persistent suicidal ideation, I am asking [facility] to re-evaluate this patient with the need of being readmitted to their facility for alcohol detoxification and suicidal ideation. Of note, the patient was recently hospitalized at [facility] from 11/07/16 to 11/14/16 due to the same symptoms, suicidal ideation and alcohol detoxification. He had detox'd well there but, upon returning home, patient continues to drink. He tells me that he drinks a half gallop of vodka every day as well as beers and he still has persistent suicidal thoughts. DISCHARGE CONDITION Stable. Possibly to [facility] for continuing detox of alcohol and suicidal ideation. ACTIVITIES No limit to activities. DIET No limits to his diet. MEDICATIONS Med list include: 1. Symbicort two puffs inhaled twice daily for shortness of breath. 2. Proventil inhaler, two puffs inhaled every four hours as needed for shortness of breath and/or wheezing. 3. Flomax 0.4 mg orally daily for BPH. 4. Requip 0.25 mg orally at bedtime for restless leg syndrome. 5. Protonix 40 mg orally daily for GERD. 6. Motrin 800 mg orally every eight hours as needed for chest wall pain. 7. Neurontin 800 mg four times daily for neuropathy. 8. Lasix 20 mg orally daily. 9. Desyrel 300 mg orally at bedtime for insomnia. 10. Prozac 40 mg orally daily for depression. 11. Zestril 50 mg orally every six hours as needed for anxiety. Dictated by... Patrizia Smyth PA-C for Unit #: [id number] #: [id number] Patient: IVONE JUSTIN Kristy Terrazas/brittany TD: 11/22/2016 12:41 JOB #: [id number] DISCHARGE SUMMARY Page 1 of 1 X X DISCHARGE SUMMARY
--- NOTE | ~2016-11-21 | EKG ---
PATIENT: IVONE JUSTIN UNIT #: [id number] Ventricular Rate: 73 BPM Atrial Rate: 73 BPM P-R Interval: 184 ms QRS Duration: 94 ms Q-T Interval: 414 ms QTC Calculation(Bezet): 456 ms P [place]: 63 degrees Calculated R [place]: 4 degrees Calculated T [place]: 76 degrees Diagnosis Line: Normal sinus rhythm Diagnosis Line: Nonspecific T wave abnormality Diagnosis Line: Otherwise normal ECG Diagnosis Line: When compared with ECG of 05-NOV-2016 21:25, Diagnosis Line: Incomplete right bundle branch block is no longer Diagnosis Line: Present Diagnosis Line: Confirmed by IZAIAH CANAS MD ([id number]) on 11/22/2016 Diagnosis Line: 9:19:12 PM INTERPRETING MD: FLORESITA CARRANZA
[2016-11-21 14:21] LABS: URINE SOURCE CLEAN CATCH
[2016-11-21 14:37] LABS: URINE APPEARANCE CLEAR; URINE BILIRUBIN NEG (NEG); URINE BLOOD NEG (NEG); URINE COLOR YELLOW; URINE GLUCOSE NEG (NEG); URINE KETONE NEG (NEG); URINE LEUKOCYTE ESTERASE NEG (NEG); URINE NITRATE NEG (NEG); URINE PH 5.5 (5-8); URINE PROTEIN NEG (NEG); URINE SPECIFIC GRAVITY 1.003 (1.003-1.035); URINE UROBILINOGEN 0.2 MG/DL (NEG)
[2016-11-21 14:41] LABS: CULTURE INDICATED? NO
[2016-11-21 14:50] LABS: AMPHETAMINE NEG (NEG); BARBITURATES POS (NEG); BENZODIAZEPINES POS (NEG); COCAINE NEG (NEG); MARIJUANA NEG (NEG); OPIATES NEG (NEG); TRICYCLIC ANTIDEPRESSANTS NEG (NEG); U METHADONE NEG (NEG)
[2016-11-21 16:50] LABS: BASOPHIL% 0.7 % (0-2.5); EOSINOPHIL# 0.1 X10e3 (0-0.7); EOSINOPHIL% 1.9 % (0.0-7.0); HEMATOCRIT 31.6 % (38.0-50.0); HEMOGLOBIN 9.8 gm/dL (13.0-16.0); LYMPHOCYTE# 1.6 X10e3 (1.0-3.5); MEAN CELL VOLUME 88.7 FL (83-96); MEAN CORPUSCULAR HEMOGLOBIN 27.5 PG (28-34); MEAN PLATELET VOLUME 7.7 FL (6.5-11.5); MONOCYTE# 0.4 X10e3 (0-1.0); MONOCYTE% 7.2 % (3.0-12.0); NEUTROPHIL# 3.9 X10e3 (1.5-7.1); NEUTROPHIL% 64.2 % (40-75); PLATELET COUNT 209 X10e3 (140-420); RED BLOOD COUNT 3.57 X10e (3.90-5.60); RED CELL DISTRIBUTION WIDTH 19.4 % (11.0-15.5)
[2016-11-21 16:57] LABS: DIFF IND NO
[2016-11-21 17:02] LABS: INFLUENZA A NEG (NEG); INFLUENZA B NEG (NEG)
[2016-11-21 17:03] LABS: PROTHROMBIN TIME (PATIENT) 10.4 SECONDS (9.6-11.5)
[2016-11-21 17:29] LABS: ALBUMIN SERUM 3.4 g/dL (3.5-5.0); BILIRUBIN, DIRECT 0.1 mg/dL (0.0-0.2); BILIRUBIN,INDIRECT 0.1 mg/dL (0.0-0.9); BILIRUBIN,TOTAL 0.2 mg/dL (0.2-2.0); BUN/CREATININE RATIO 6.66; CALCIUM SERUM 9.1 mg/dL (8.4-10.2); CREATININE SERUM 0.9 mg/dL (0.6-1.4); GLOM FILT RATE Estimated 101.4 mL/min (>60); PROTEIN TOTAL SERUM 6.6 g/dL (6.0-8.3)
[2016-11-22 04:28] LABS: MEAN CELL VOLUME 87.4 FL (83-96); MEAN CORPUSCULAR HEMOGLOBIN 27.3 PG (28-34); MEAN CORPUSCULAR HGB CONC 31.2 g/dL (30-36); MEAN PLATELET VOLUME 7.4 FL (6.5-11.5); RED BLOOD COUNT 3.32 X10e (3.90-5.60); RED CELL DISTRIBUTION WIDTH 19.6 % (11.0-15.5); WHITE BLOOD COUNT 5.3 X10e3 (4.0-10.5)
[2016-11-22 04:54] LABS: BILIRUBIN,TOTAL 0.5 mg/dL (0.2-2.0); BUN/CREATININE RATIO 12.85; CALCIUM SERUM 8.3 mg/dL (8.4-10.2); CREATININE SERUM 0.7 mg/dL (0.6-1.4); GLOM FILT RATE Estimated 112.4 mL/min (>60); MAGNESIUM 1.7 mg/dL (1.6-3.0); POTASSIUM 3.7 mmol/L (3.5-5.1)
[2016-11-22 05:12] LABS: %MB 2.8 % (0.0-4.0); MB 3.7 ng/ml
[2016-11-22 11:56] LABS: MB 3.7 ng/ml
[2016-11-23 10:09] LABS: ARTERIAL BLD GAS O2 SATURATION 87.2 % (90.0-100.0); ARTERIAL BLOOD GAS CARBOXY HB 1.2 %sat (0.0-9.0); ARTERIAL BLOOD GAS HCO3 26.9 mmol/L; ARTERIAL BLOOD GAS MET HB 0.6 %sat (0.0-2.0); ARTERIAL BLOOD GAS PCO2 40.7 mmHg (35.0-45.0); ARTERIAL BLOOD GAS pH 7.428 (7.350-7.450)
[2016-11-23 10:12] LABS: ARTERIAL BLOOD GAS ALLEN TEST NORMAL; ARTERIAL BLOOD GAS ART SITE RIGHT RADIAL; ARTERIAL BLOOD GAS PO2 54.7 mmHg (80.0-100); ARTERIAL DRAW? YES
== END 2016-11-23 17:00 | disposition left against medical advice (07) | DRG 894 ==
LOC: CED 14:19 → CEDOF 18:40 → C3A PCU 21:32
PROVIDERS: Emergency Medicine; Family Medicine; Internal Medicine
PROC: 02HV33Z Insertion of Infusion Device into Superior Vena Cava, Percutaneous Approach (ICD-10-PCS; principal; 2016-11-22)
PROC: B518YZA Fluoroscopy of Superior Vena Cava using Other Contrast, Guidance (ICD-10-PCS; 2016-11-22)
PROC: B548ZZA Ultrasonography of Superior Vena Cava, Guidance (ICD-10-PCS; 2016-11-22)
DX: F10.229 Alcohol dependence with intoxication, unspecified (principal); R45.851 Suicidal ideations; F33.2 Major depressive disorder, recurrent severe without psychotic features; G31.2 Degeneration of nervous system due to alcohol; I95.9 Hypotension, unspecified; I48.0 Paroxysmal atrial fibrillation; D64.89 Other specified anemias; Z86.718 Personal history of other venous thrombosis and embolism; Z86.711 Personal history of pulmonary embolism; J44.9 Chronic obstructive pulmonary disease, unspecified; F17.210 Nicotine dependence, cigarettes, uncomplicated; K21.9 Gastro-esophageal reflux disease without esophagitis; G89.29 Other chronic pain; Z79.82 Long term (current) use of aspirin; Y90.8 Blood alcohol level of 240 mg/100 ml or more
CPT/HCPCS: 36415; 36600; 71010; 76937; 77001; 80048; 80053; 80076; 80307; 81003; 82550; 82553; 82803; 83605; 83735; 83930; 84484; 85025; 85027; 85610; 85730; 87040; 87804; 93005; 94640; 94664; 94760; 96372; 99285; C1751; G0480; J1200; J1885; J1940; J2060; J2920; J3260; J3370; J3411; J3486; J7042

== ENCOUNTER 2016-11-23 23:33 | Emergency (ER) | payer OTHER | END 2016-11-24 06:47 | disposition home or self-care (01) | LOC: CED 23:33 | DX: F10.129 Alcohol abuse with intoxication, unspecified (principal); F17.200 Nicotine dependence, unspecified, uncomplicated | CPT/HCPCS: 99282 ==

== ENCOUNTER 2016-11-25 08:06 | Inpatient (IN) | payer OTHER ==
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
--- NOTE | ~2016-11-25 | HP ---
Unit #: [id number] #: [id number] Patient: IVONE JUSTIN [id number] [place] [address] [id number] I MR#: [id number] NAME: IVONE JUSTIN ROOM: P171 Age: 46 Sex: M Admission Date: 11/25/2016 : 1970 Attending Physician: Anish Ramos M.D. Admitting Physician: Anish Ramos M.D. Primary Care Physician: Halima Doctor Not In System HISTORY AND PHYSICAL HISTORY OF PRESENT ILLNESS The patient is a 46-year-old male who states he is here due to depression, anxiety and alcohol abuse. PAST MEDICAL HISTORY None. PAST SURGICAL HISTORY None. ALLERGIES None. SOCIAL HISTORY Positive for smoking and alcohol. Occasional drug use. FAMILY HISTORY Noncontributory. REVIEW OF SYSTEMS CONSTITUTIONAL: No fever or chills. HEENT: Denies any sore throat, ear pain or runny nose. CARDIOVASCULAR: Denies chest pain, irregular heart rhythm or palpitations. CHEST: Denies shortness of breath or cough. No hemoptysis. GASTROINTESTINAL: Denies nausea, vomiting, diarrhea or chronic constipation. ENDOCRINE: Denies history of increased thirst or urination. No recent significant weight loss or gain. GENITOURINARY: Denies dysuria, frequency, or hematuria. SKIN: Denies any rashes. HEMATOLOGIC: Denies history of increased bleeding or bruising. MUSCULOSKELETAL: Denies any hot, swollen joints. No generalized muscle pain. NEUROLOGIC: Denies problems with vision or speech. No frequent, severe headaches. No numbness, tingling or weakness in any extremities. Denies loss of bladder or bowel control. CURRENT MEDICATIONS 1. Proventil inhaler 2 puffs p.o. q. 4 hours. 2. Symbicort 2 puffs p.o. b.i.d. 3. Lotrisone cream topical b.i.d. 4. Lasix 20 mg p.o. daily. 5. Neurontin 800 mg p.o. q.i.d. Unit #: [id number] #: [id number] Patient: IVONE JUSTIN 6. Protonix 40 mg p.o. daily. 7. Requip 0.25 mg p.o. q.h.s. 8. Prozac 40 mg p.o. daily. 9. Trazodone 300 mg p.o. q.h.s. 10. Motrin 800 mg p.o. q. 8 hours p.r.n. 11. Mucinex 600 mg p.o. b.i.d. 12. Vistaril 50 mg p.o. q. 6 hours p.r.n. 13. Flomax 0.4 mg daily. PHYSICAL EXAMINATION GENERAL: Alert, oriented, in no acute distress, although patient does complain of left lateral rib pain where he states he has fracture. VITAL SIGNS: Blood pressure 128/88, heart rate 94, respirations 18, temperature 97.8. HEIGHT: 6 feet 4 inches. WEIGHT: 268 pounds. SKIN: Warm and dry without rash or lesion. Multiple tattoos. A bruise to the left rib area. Scars to the left upper arm, right wrist area. Tattoos to the left hand and left forearm. Bruise to the left lower extremities. Scar to the left knee, right knee. HEENT: Normocephalic. TMs not viewed. Oral and nasal passages clear. Conjunctivae clear. PERRLA. EOMs intact. NECK: Supple without lymphadenopathy or thyromegaly. HEART: Regular rate and rhythm without murmur. LUNGS: Noted wheezing throughout and decreased breath sounds. ABDOMEN: Soft, nontender, without masses or hepatosplenomegaly. : Not done. EXTREMITIES: No evidence of cyanosis, clubbing or edema. Moves all without focal deficit. NEUROLOGICAL: Grossly within normal limits. Cranial Nerves: II: Visual faulkner are intact. III, IV AND : Extraocular movements are intact. Pupils are equal, round and reactive to light. V: Facial sensation is grossly normal. VII: Facial movements and expression are normal. VIII: Auditory acuity grossly intact. IX, X: Uvula is midline. Phonation is normal. XI: Patient shrugs shoulders and turns head normally. XII: Tongue protrudes in the midline. Sensory and Motor Function: Sensory and motor sensation is grossly normal. Motor: moves all extremities well. Coordination: Gait is normal. Deep Tendon Reflexes: Intact. IMPRESSION Psychiatric admission. RECOMMENDATIONS PSYCHIATRIC: Per psychiatrist. MEDICAL: No contraindications to participate in facility's activities. MEDICAL PROGNOSIS Good. Dictated by... Concha Noguera A.P.R.N. Unit #: [id number] #: [id number] Patient: IVONE JUSTIN VIRAJJ/dzh TD: 11/25/2016 20:43 JOB #: [id number] HISTORY AND PHYSICAL Page 1 of 1 X Concha Noguera APR X HISTORY AND PHYSICAL
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
--- NOTE | ~2016-11-25 | DS ---
Unit #: [id number] #: [id number] Patient: IVONE JUSTIN [id number] [facility] [address] [place] [address] [id number] I MR#: [id number] NAME: IVONE JUSTIN ROOM: 71 Age: 46 Sex: M Admission Date: 11/25/2016 : 1970 Discharge Date: 11/27/2016 Attending Physician: Anish Ramos M.D. DISCHARGE SUMMARY REASON FOR ADMISSION The patient is a 46-year-old white male, briefly admitted to the [facility] unit after he once again become intoxicated and had been presented to [facility] voicing suicidal ideations. HOSPITAL COURSE The patient was admitted to the [facility] and placed on suicide precautions. The patient was placed was placed on routine detoxification protocol for alcohol, but exhibited little in the way of signs or symptoms of withdrawal. All home medications were continued. On 11/27/2016, the patient's vital signs were entirely stable and exhibited little in the way of signs or symptoms of withdrawal. He requested an extended stay in the hospital secondary to his current homeless status but it was explained to the patient that he was not meeting criteria for inpatient treatment at that point and with the resolution of suicidal ideation. Discharge was ordered. It is worth noting that the patient claimed at [facility], but he was grieving the of his 19-year-old nephew who was killed in altering vehicle accident. The patient however never bothered to mention that to this physician and appeared quite jovial in his interactions with peers and staff. FINAL DIAGNOSES Alcohol use disorder, dysthymic disorder, chronic obstructive pulmonary, broken ribs, gastroesophageal reflux disease, restless legs syndrome, benign prostatic hypertrophy, morbid obesity, chronic pain. DISPOSITION ON DISCHARGE The patient is discharged on the following medications Proventil HFA 2 puffs q.4 hours p.r.n. shortness of air, Symbicort 2 puffs b.i.d. for asthma, Lotrisone apply to rash b.i.d., Lasix 20 mg once daily for hypertension, Neurontin 800 mg q.i.d. for chronic pain, Protonix 40 mg once daily for GERD, Requip 0.25 mg at bedtime for restless legs syndrome, Prozac 40 mg daily for depression, trazodone 300 mg at h.s. p.r.n. insomnia, Motrin 800 mg q.4 hours p.r.n. pain, Mucinex 600 mg b.i.d. for cough, Vistaril 50 mg q.6 hours p.r.n. anxiety, Flomax 0.4 mg daily for BPH. DISCHARGE INSTRUCTIONS No dietary or physical restrictions were placed upon the patient at the time of discharge. FOLLOWUP Followup will take place through the auspices of [facility] #: [id number] #: [id number] Patient: IVONE JUSTIN. PROGNOSIS The patient's prognosis remains guarded. This physician feels as though he would be making this final point at the time of this discharge summary. While the patient is frequently readmitted to this facility. He does in fact, generally voice positive suicidal ideation with specific plan and intent. On this occasion, he had stated a plan to jump from a bridge. He was also intoxicated and the patient is homeless status coupled with his lack of support and ongoing substance use, make him a significant suicide risk and the opinion of this physician. Other factors such as he is race male sex and unmarried status also contribute to this risk. I would point out that in a similar situation where the patient has it is chronically noncompliant with diet with their diabetic regimen, but was brought to the patient repeatedly in a diabetic coma, should that the patient be denied because the outcome "never changes as was the point made to this physician by the reviewing physician when the case was reviewed on Sunday in other words, it was statements to this physician never any change in the patient's outcome i.e., his frequently readmitted that he was therefore not admit that the insurance [employer] therefore denied payment for Services here once patient was in a diabetic coma, comes to mind and that a patient who is chronically noncompliant with insulin regimen may in fact we admit frequently to the hospital , however, the patient is not in need of life-saving care as was this patient at the time of his evaluation given his suicidal ideation and risk of alcohol detox and it would be the hope of this physician reviewing of physician would taken took to account this an allergy trials. Dictated by... Anish Ramos M.D. CB/favian TD: 11/27/2016 20:43 JOB #: [id number] DISCHARGE SUMMARY Page 1 of 1 X Anish Ramos MD X DISCHARGE SUMMARY
--- NOTE | ~2016-11-25 | PN ---
Unit #: [id number] #: [id number] Patient: IVONE JUSTIN [id number] [facility] [address] [place] [address] [id number] MR#: [id number] NAME: IVOEN JUSTIN ROOM: [facility] Age: 46 Sex: M Admission Date: 11/25/2016 : 1970 Attending Physician: Anish Ramos M.D. Admitting Physician: Anish Ramos M.D. Primary Care Physician: Generic Doctor Not In System [facility] PROGRESS NOTES DATE 11/26/2016 DISCUSSION The patient's most recent CIWA score was a 15 requiring Ativan. The patient has required Ativan in all but one of the shifts during which he has been hospitalized secondary to his symptoms of severe alcohol withdrawal. We continue current treatment. Dictated by... Anish Ramos M.D. CB/laila TD: 11/26/2016 21:48 JOB #: [id number] [facility] PROGRESS NOTES Page 1 of 1 X Anish Ramos MD PROGRESS NOTE
[2016-11-26 11:44] LABS: URINE APPEARANCE CLOUDY; URINE BLOOD 1+ (NEG); URINE COLOR YELLOW; URINE GLUCOSE NORM (NORM); URINE KETONE NEG (NEG); URINE LEUKOCYTE ESTERASE 1+ (NEG); URINE NITRATE NEG (NEG); URINE PROTEIN 1+ (NEG); URINE UROBILINOGEN NORM (NORM)
[2016-11-26 11:46] LABS: URINE BILIRUBIN NEG (NEG)
[2016-11-26 11:49] LABS: URINE AMORPHOUS SEDIMENT AMORP URATES; URINE SQUAMOUS EPITHELIAL CELL FEW /[HPF]
[2016-11-26 12:14] LABS: AMPHETAMINE NEG (NEG); BARBITURATES POS (NEG); BENZODIAZEPINES POS (NEG); COCAINE NEG (NEG); MARIJUANA NEG (NEG); OPIATES NEG (NEG); TRICYCLIC ANTIDEPRESSANTS NEG (NEG); U METHADONE NEG (NEG)
== END 2016-11-27 14:38 | DRG 881 ==
LOC: P1E 08:06
PROVIDERS: Specialist
DX: F34.1 Dysthymic disorder (principal); J44.1 Chronic obstructive pulmonary disease with (acute) exacerbation; S22.39XA Fracture of one rib, unspecified side, initial encounter for closed fracture; F10.20 Alcohol dependence, uncomplicated; K21.9 Gastro-esophageal reflux disease without esophagitis; G25.81 Restless legs syndrome; N40.0 Benign prostatic hyperplasia without lower urinary tract symptoms; Z59.0 Homelessness; F17.210 Nicotine dependence, cigarettes, uncomplicated; E66.01 Morbid (severe) obesity due to excess calories; G89.29 Other chronic pain
CPT/HCPCS: 80307; 81003

== ENCOUNTER 2016-11-27 23:59 | Emergency (ER) | payer OTHER | END 2016-11-28 07:38 | disposition home or self-care (01) | LOC: CED 23:59 | DX: F10.129 Alcohol abuse with intoxication, unspecified (principal); I11.0 Hypertensive heart disease with heart failure; I50.9 Heart failure, unspecified; K21.9 Gastro-esophageal reflux disease without esophagitis; F17.210 Nicotine dependence, cigarettes, uncomplicated | CPT/HCPCS: 99282 ==

== ENCOUNTER 2016-11-28 14:36 | Emergency (ER) | payer OTHER ==
--- NOTE | ~2016-11-28 | CR72 ---
[facility] A Service of [facility] & [facility] RADIOLOGY TEXT RESULTS PATIENT: IVONE JUSTIN LOCATION: [facility] : [birth year] UNIT #: [id number] AGE: [address]: Bay Arellano MD SEX: M ORDER DR: [id number] [facility] [address] [place], [place] [address] [id number] MR#: [id number] Acc #: [id number] NAME: IVONE JUSTIN : 1970 SEX: M STUDY DATE/TIME: 11/28/2016 17:00 UNIT: [facility] ROOM: STUDY DESCRIPTION: CR Chest Single View Portable Attending Physician: Bay Arellano M.D. Ordering Physician: Ed Doctor [id number] [facility] Primary Care Physician: No Primary Care Physician MEDICAL IMAGING REPORT This report is preliminary unless electronic signature is present EXAM Single view chest INDICATIONS Shortness of air. COPD for 2 days. FINDINGS Single portable AP view of the chest compared to 11/21/2016. FINDINGS Heart and mediastinal contours within normal limits. There is minimal linear atelectasis or scarring left lung base. There is similar-appearing linear atelectasis or scarring in the right lung base. No pleural effusion. IMPRESSION Minimal linear atelectasis and/or scarring in the lung bases. Dictated by... Lawson Lerma M.D. THIS IS AN ELECTRONICALLY VERIFIED REPORT Lawson Lerma M.D. at 11/28/2016 10:31 PM SUJATHA/austin TD: 11/28/2016 21:59 JOB #: [id number] MEDICAL IMAGING REPORT Page 1 of 1 COPY
[2016-11-28 14:54] LABS: ALBUMIN SERUM 3.5 g/dL (3.5-5.0); BILIRUBIN,TOTAL 0.3 mg/dL (0.2-2.0); BUN/CREATININE RATIO 12.85; CALCIUM SERUM 8.9 mg/dL (8.4-10.2); CREATININE SERUM 0.7 mg/dL (0.6-1.4); GLOM FILT RATE Estimated 112.4 mL/min (>60); POTASSIUM 3.8 mmol/L (3.5-5.1); PROTEIN TOTAL SERUM 6.4 g/dL (6.0-8.3)
[2016-11-28 15:14] LABS: BASOPHIL% 0.3 % (0-2.5); EOSINOPHIL# 0.1 X10e3 (0-0.7); EOSINOPHIL% 1.5 % (0.0-7.0); HEMATOCRIT 30.2 % (38.0-50.0); HEMOGLOBIN 9.6 gm/dL (13.0-16.0); LYMPHOCYTE# 1.7 X10e3 (1.0-3.5); LYMPHOCYTE% 34.5 % (17.0-45.0); MEAN CORPUSCULAR HEMOGLOBIN 27.9 PG (28-34); MEAN CORPUSCULAR HGB CONC 31.7 g/dL (30-36); MEAN PLATELET VOLUME 7.6 FL (6.5-11.5); MONOCYTE# 0.4 X10e3 (0-1.0); MONOCYTE% 7.6 % (3.0-12.0); NEUTROPHIL# 2.7 X10e3 (1.5-7.1); NEUTROPHIL% 56.1 % (40-75); PLATELET COUNT 198 X10e3 (140-420); RED BLOOD COUNT 3.44 X10e (3.90-5.60); RED CELL DISTRIBUTION WIDTH 19.6 % (11.0-15.5); WHITE BLOOD COUNT 4.9 X10e3 (4.0-10.5)
[2016-11-28 15:22] LABS: DIFF IND NO
== END 2016-11-29 07:25 ==
LOC: CED 14:36
PROVIDERS: Emergency Medicine
DX: F10.129 Alcohol abuse with intoxication, unspecified (principal); J44.9 Chronic obstructive pulmonary disease, unspecified; I11.0 Hypertensive heart disease with heart failure; I50.9 Heart failure, unspecified; K21.9 Gastro-esophageal reflux disease without esophagitis; Z88.8 Allergy status to other drugs, medicaments and biological substances; F17.210 Nicotine dependence, cigarettes, uncomplicated; R56.9 Unspecified convulsions
CPT/HCPCS: 36415; 71010; 80053; 85025; 99285; G0480

== ENCOUNTER 2016-11-29 08:00 | Inpatient (IN) | payer OTHER ==
--- NOTE | ~2016-11-29 | HP ---
Unit #: [id number] #: [id number] Patient: TESSA JUSTIN [id number] [facility] [address] [place] [address] [id number] I MR#: [id number] NAME: TESSA JUSTIN ROOM: P214 Age: 46 Sex: M Admission Date: 11/29/2016 : 1970 Attending Physician: Shan Lakhani M.D. Admitting Physician: Shan Lakhani M.D. Primary Care Physician: Generic Doctor Not In System HISTORY AND PHYSICAL Tessa is a 46 year old admitted to [address] [place] [address] because of his continued abuse of alcohol. He has had numerous admissions to this facility for the same. Patient was seen and H and P dated 11/08/16 was reviewed. This is current. No changes. Please see H and P dated 11/08/16. Dictated by... Tonia Jason P.A.-C. for Kristy Serrano/dung TD: 11/29/2016 22:26 JOB #: [id number] HISTORY AND PHYSICAL Page 1 of 1 X Tonia Jason HISTORY AND PHYSICAL
--- NOTE | ~2016-11-29 | PA ---
Unit #: [id number] #: [id number] Patient: TESSA JUSTIN [id number] [facility] [address] [place] [address] [id number] I MR#: [id number] NAME: TESSA JUSTIN ROOM: [facility] Age: 46 Sex: M Admission Date: 11/29/2016 : 1970 Date of Assessment: 11/29/2016 Attending Physician: Shan Lakhani M.D. Admitting Physician: Shan Lakhani M.D. Primary Care Physician: Generic Doctor Not In System PSYCHIATRIC ASSESSMENT INFORMANTS 1. Patient, reliable. 2. OLOP, reliable. CHIEF COMPLAINT Suicidal ideation. HISTORY OF PRESENT ILLNESS Tessa is a 46-year-old man well-known to me from multiple admissions to this hospital who reports he has relapsed on alcohol after a recent discharge from our facility. He reported suicidal ideation and could not contract for safety outside of the hospital. He was admitted for stabilization. PAST PSYCHIATRIC HISTORY Multiple admissions to this facility but is frequently under the care of Dr. Ramos. Please see previous history for reports. FAMILY HISTORY Reviewed with no changes. SOCIAL HISTORY The patient is erratically housed and has 1 supportive brother. Please see previous social history for further details. PAST MEDICAL HISTORY Significant for hypertension, COPD, BPH, chronic pain, restless leg syndrome. ALLERGIES Mirtazapine, Zofran and strawberries. SUBSTANCE ABUSE HISTORY The patient has a long history of alcohol dependence. MENTAL STATUS EXAMINATION Romulo presented as a mildly disheveled man who appeared older than his stated age. He was cooperative with the examination. His speech was spontaneous and easily understood. His musculoskeletal examination was calm. His mood was depressed and anxious with a congruent affect. He was alert and fully oriented. His memory and concentration were fair. His thought processes were goal directed with no psychosis. He reported suicidal ideation and could not contract for safety outside of the hospital. Insight and judgment were fair. Fund of knowledge and Unit #: [id number] #: [id number] Patient: TESSA JUSTIN abstraction were fair. ASSETS AND LIABILITIES The patient knows local resources and is presenting voluntarily for treatment. Liabilities include chronic hospitalization, chronic relapse. ADMITTING DIAGNOSES AXIS I: Alcohol dependence, withdrawal, uncomplicated, F10.230. Major depressive disorder, F33.2. AXIS II: No diagnosis. [place] III: Multiple. PSYCHIATRIC PLAN Patient was admitted and placed on suicide precautions and the alcohol detox protocol. His home medications will be continued unchanged. He will enroll in dual diagnosis groups and activities. Treatment goals are resolution of SI, establishment of sobriety, improvement in insight, improvement in coping skills. DISCHARGE PLANNING Follow up with chemical dependence resources and community mental health. ESTIMATED LENGTH OF STAY Five days. Dictated by... Shan Lakhani M.D. BETTYE/dung TD: 11/30/2016 18:25 JOB #: [id number] PSYCHIATRIC ASSESSMENT Page 1 of 1 X Shan Lakhani MD X PSYCHIATRIC ASSESSMENT
== END 2016-12-05 11:32 | DRG 897 ==
LOC: P2S 08:00
PROC: HZ2ZZZZ Detoxification Services for Substance Abuse Treatment (ICD-10-PCS; principal; 2016-11-29)
DX: F10.239 Alcohol dependence with withdrawal, unspecified (principal); F33.2 Major depressive disorder, recurrent severe without psychotic features; R45.851 Suicidal ideations; F17.210 Nicotine dependence, cigarettes, uncomplicated; I10 Essential (primary) hypertension; J44.9 Chronic obstructive pulmonary disease, unspecified; N40.0 Benign prostatic hyperplasia without lower urinary tract symptoms; G25.81 Restless legs syndrome
CPT/HCPCS: 86592

== ENCOUNTER 2016-12-06 23:59 | Emergency (ER) | payer OTHER ==
[2016-12-08] MEDS ORDERED: GABAPENTIN800 MG PO (04:18)
[2016-12-08] MEDS ORDERED: FLOMAX0.4 M1 PO (04:19)
[2016-12-08] MEDS ORDERED: LASIX PO (04:19)
[2016-12-08] MEDS ORDERED: PROZAC40 MG PO (04:20)
[2016-12-08] MEDS ORDERED: VISTARIL50 MG PO (04:20)
[2016-12-08] MEDS ORDERED: MOTRIN400 M1 PO (04:21)
[2016-12-08] MEDS ORDERED: SYMBICORT INH (04:22)
[2016-12-08] MEDS ORDERED: ALBUTEROL20 ml INH (04:23)
[2016-12-08] MEDS ORDERED: PANTOPRAZOLE SO40 MG PO (04:41)
== END 2016-12-07 05:55 | disposition home or self-care (01) ==
LOC: CED 23:59
DX: J44.1 Chronic obstructive pulmonary disease with (acute) exacerbation (principal); F10.129 Alcohol abuse with intoxication, unspecified; R56.9 Unspecified convulsions; Z98.890 Other specified postprocedural states; F17.200 Nicotine dependence, unspecified, uncomplicated
CPT/HCPCS: 94640; 99283

== ENCOUNTER 2016-12-07 11:04 | Inpatient (IN) | payer OTHER ==
--- NOTE | ~2016-12-07 | HP ---
Unit #: [id number] #: [id number] Patient: IVONE JUSTIN [id number] [facility] [address]. [place], [place] [address] [id number] MR#: [id number] NAME: IVONE JUSTIN ROOM: Age: 46 Sex: M Admission Date: 12/07/2016 : 1970 Attending Physician: Vlad Moya M.D. Primary Care Physician: Generic Doctor Not In System HISTORY AND PHYSICAL CHIEF COMPLAINT Coughing up stuff. HISTORY OF PRESENT ILLNESS The patient is a 46-year-old male with past medical history of COPD with continued tobacco abuse, paroxysmal atrial fibrillation, DVT, PE, GERD, chronic pain, alcohol abuse, who presented to the emergency department for evaluation of the above. The patient states that he has had a four to five-day history of increasing shortness of breath and productive cough. He denies any documented fever but has had chills. He also reports chest pain in association with cough. He states that he has had decreased appetite with vomiting and diarrhea. He has not been taking any medications. He apparently was seen in the emergency department last night for the same problem. He returns today. In the emergency department, oxygen saturation was initially 95% on room air, however, dropped to 87% to 91% on room air during the course of his evaluation in the emergency department. Chest x-ray shows nothing acute. He was given 60 mg of prednisone p.o. in the emergency department. He is being admitted to [facility] for evaluation and further treatment. PAST MEDICAL HISTORY 1. Admission to [facility] 11/21 to 11/22/2016 for encephalopathy and suicidal ideation. 2. COPD with continued tobacco abuse. 3. Paroxysmal atrial fibrillation, not on chronic anticoagulation. 4. History of DVT/PE. 5. GERD. 6. Chronic pain. 7. Alcohol abuse. PAST SURGICAL HISTORY 1. Testicular surgery. 2. Excision of cyst left neck. 3. Left upper extremity ORIF. 4. Excisional biopsy of anterior chest wall lesion. ALLERGIES 1. Zofran. 2. Mirtazapine. Unit #: [id number] #: [id number] Patient: IVONE JUSTIN HOME MEDICATIONS Per the discharge summary from 11/22/2016 includes: 1. Symbicort. 2. Proventil. 3. Flomax. 4. Requip. 5. Protonix. 6. Motrin. 7. Neurontin. 8. Lasix. 9. Desyrel. 10. Prozac. 11. Zestril. Home medications will need to be reviewed and verified. SOCIAL HISTORY The patient is a daily drinker. He states that he drinks a liter of vodka daily with the last drink being on the day prior to admission. He continues to smoke. There is no illicit drug use. He is currently living in a snf. FAMILY HISTORY Notable for congestive heart failure. REVIEW OF SYSTEMS A complete review of systems is negative except as indicated in the HPI. PHYSICAL EXAMINATION VITAL SIGNS: Temperature 98.3, pulse 100, respirations 20, blood pressure 137/63, oxygen saturation 95% on room air but dropped to 87% to 91% during the course of his evaluation in the emergency department. GENERAL: The patient is a male who is awake and alert sitting on the side of the bed. HEENT: Head is atraumatic. Mucous membranes are moist. NECK: Supple. Trachea is midline. LUNGS: Inspiratory and expiratory wheezes. Breathing is mildly labored with conversation. HEART: Tachycardic in the 100s. ABDOMEN: Soft, nontender. Bowel sounds present in all four quadrants. EXTREMITIES: Nontender. 1+ edema. NEUROLOGIC: Patient is awake and alert. He follows commands. He is somewhat tremulous. PSYCHIATRIC: The patient is somewhat anxious but he is cooperative. DIAGNOSTIC STUDIES IMAGING: Chest x-ray shows borderline cardiac size and chronic lung changes with no active disease. ASSESSMENT The patient is a 46-year-old male with: 1. Acute respiratory failure, hypoxic. 2. Chronic obstructive pulmonary disease with continued tobacco abuse. 3. History of paroxysmal atrial fibrillation. 4. History of DVT/PE. 5. Gastroesophageal reflux disease. 6. Chronic pain. 7. Alcohol abuse with last drink being yesterday. Unit #: [id number] #: [id number] Patient: IVONE JUSTIN PLAN 1. Admit to intermediate level. 2. Healthy-heart diet. 3. Supplemental oxygen. 4. DuoNeb q.4 h. while awake and q.2 h. p.r.n. 5. Solu-Medrol 80 mg IV q.12 h. 6. Doxycycline 100 mg p.o. b.i.d. for acute bronchitis. 7. Mucinex 600 mg p.o. b.i.d. 8. Check EKG and cardiac enzymes. 9. Check labs. 10. Alcohol withdrawal protocol. 11. Librium 25 mg p.o. q.6 h. with first dose now. 12. Thiamine, multivitamin and folic acid. 13. manager retirementfield operations manager consult regarding alcohol abuse. 14. Protonix 40 mg daily since the patient will be on Solu-Medrol. 15. SCDs for DVT prophylaxis. 16. Additional workup and consultants based on above. Dictated by Kristy Hernandez/clemencia TD: 12/07/2016 15:22 JOB #: [id number] HISTORY AND PHYSICAL Page 1 of 1 X Monique Maxwell MD X HISTORY AND PHYSICAL
--- NOTE | ~2016-12-07 | DS ---
Unit #: [id number] #: [id number] Patient: IVONE JUSTIN [id number] [address] [facility]. [place], [place] [address] [id number] MR#: [id number] NAME: IVONE JUSTIN ROOM: [facility] Age: 46 Sex: M Admission Date: 12/07/2016 : 1970 Discharge Date: 12/11/2016 Attending Physician: Uli Hussein M.D. Primary Care Physician: Generic Doctor Not In System DISCHARGE SUMMARY DISCHARGE DIAGNOSES 1. Acute respiratory failure, resolved: The patient is oxygenating well. Last CO2 was 97% on room air. 2. Acute chronic obstructive pulmonary disease exacerbation. 3. Noncompliance. 4. History of paroxysmal atrial fibrillation. 5. Obesity with body mass index of 32. 6. Alcohol and substance abuse, ongoing. 7. History of chronic depression and anxiety, currently without suicidal or homicidal ideation. 8. Chronic anemia. 9. History of remote deep venous thrombosis and pulmonary embolus. 10. Gastroesophageal reflux disease. 11. Chronic back pain. CONSULTANTS None. PROCEDURES None. IMAGING Chest x-ray on December 07, 2016. Impression - borderline cardiac size and chronic lung changes. No infiltrate or superimposed active disease. LABORATORY Labs on the day of discharge - the patient's labs include a BMP with glucose of 113, BUN 17, creatinine 0.8, sodium 136, potassium 4.6, chloride 101, CO2 is 29, calcium is 10.4, magnesium 2.0, total protein 6.5, albumin 3.7, total bilirubin 0.5, AST of 25, ALT of 31, alkaline phos. of 8.1. CBC with WBC of 6.3, RBC 3.80, hemoglobin 10.3, hematocrit 33.0, MCV is 86.7, MCH is 27.0, MCHC is 31.1, RDW is 18.5, platelets of 142. MPV is 8.5. HOSPITAL COURSE The patient is a 46-year-old male with a past medical history of COPD, tobacco usage, paroxysmal atrial fibrillation, DVT, PE, GERD, chronic pain, alcohol abuse, polysubstance abuse, depression, has been admitted to [facility] several times for suicidal attempt. Presented to the emergency department due to symptoms of shortness of breath and productive cough, ongoing for four to five days prior to admission. The patient had denied any fevers or chills. He reports he had chest pain, associated cough. Unit #: [id number] #: [id number] Patient: IVONE JUSTIN The patient tells me that after leaving from [facility] here recently he went home, started drinking again. When he drinks he doesn't take his inhalers and has symptoms of shortness of breath. In the emergency department, he initially had an oxygen saturation of 90% but when he got up to ambulate it had dropped from 97 to 91%. Chest x-ray revealed no acute cardiopulmonary process. He was treated for acute exacerbation of COPD with acute respiratory failure after four days of hospitalization and patient had received IV Solu-Medrol as well as bronchodilators and doxycycline for tracheobronchitis. The patient's symptoms started to improve. On the day of discharge, his oxygen was 97% on room air. The patient tells me that he is feeling much better and would like to be discharged home. The patient tells me that he has a friend he will be living with. The friend does not drink alcohol and he will try to remain free of any alcohol or substance abuse. DISCHARGE CONDITION Stable to home. ACTIVITY None restricted except patient is encouraged again and again to abstain from alcohol and any polysubstance abuse. DISCHARGE MEDICATIONS 1. Albuterol two puffs inhaled every four to six hours as needed for shortness of breath and/or wheezing. 2. Symbicort 160 mcg, two puffs inhaled twice daily. 3. Prednisone 40 mg orally for three days, 30 mg orally for three days, 20 mg orally daily for three days, 10 mg orally daily for the next three days. 4. Flomax 0.4 mg orally daily. 5. Gabapentin 800 mg orally four times daily. 6. Prozac 40 mg orally daily. 7. Vistaril 50 mg orally every six hours as needed for anxiety. 8. Lasix 20 mg orally daily. 9. Multivitamin, one tablet orally daily. 10. Protonix 40 mg orally twice daily. 11. Doxycycline 100 mg orally twice daily for two more days. 12. Folic 1 mg orally daily. 13. Thiamine 100 mg orally daily. Dictated by... Patrizia Smyth PA-C for Kristy Serrano/brittany TD: 12/12/2016 08:50 JOB #: [id number] Unit #: [id number] #: [id number] Patient: IVONE JUSTIN DISCHARGE SUMMARY Page 1 of 1 X X DISCHARGE SUMMARY
--- NOTE | ~2016-12-07 | EKG ---
PATIENT: IVONE JUSTIN UNIT #: [id number] Ventricular Rate: 91 BPM Atrial Rate: 91 BPM P-R Interval: 158 ms QRS Duration: 86 ms Q-T Interval: 346 ms QTC Calculation(Bezet): 425 ms P [place]: 62 degrees Calculated R [place]: -5 degrees Calculated T [place]: 63 degrees Diagnosis Line: Normal sinus rhythm Diagnosis Line: Normal ECG Diagnosis Line: When compared with ECG of 22-NOV-2016 02:55, Diagnosis Line: Fusion complexes are no longer Present Diagnosis Line: Premature ventricular complexes are no longer Diagnosis Line: Present Diagnosis Line: Confirmed by DESHAUN MITCHELL MD ([id number]) on 12/08/2016 Diagnosis Line: 6:17:31 AM INTERPRETING MD: STEPHEN CARRANZA
--- NOTE | ~2016-12-07 | CR72 ---
[facility] A Service of [facility] & [facility] RADIOLOGY TEXT RESULTS PATIENT: IVONE JUSTIN LOCATION: [facility] [id number] : [birth year] UNIT #: [id number] AGE: [address]: Monique Maxwell MD SEX: M ORDER DR: [id number] [facility] [address] [place], [place] [address] [id number] E MR#: [id number] Acc #: [id number] NAME: IVONE JUSTIN : 1970 SEX: M STUDY DATE/TIME: 12/07/2016 10:23 UNIT: [facility] ROOM: STUDY DESCRIPTION: CR Chest Single View Portable Attending Physician: Vlad Moya M.D. Ordering Physician: Vlad Moya M.D. Primary Care Physician: Abraham Not Listed MEDICAL IMAGING REPORT This report is preliminary unless electronic signature is present EXAM Frontal chest, 12/07/2016. INDICATION 46-year-old male with shortness of air, cough and congestion symptoms began today. History of skin cancer, COPD, irregular heartbeat. TECHNIQUE Frontal chest compared with 11/28/2016. FINDINGS Cardiac silhouette is borderline in size. The vascularity is unremarkable. Probable chronic atelectasis or scarring in the left lung base. Calcified granulomas. No effusion. No pneumothorax. IMPRESSION Borderline cardiac size and chronic lung changes. No definite superimposed active disease. Dictated by... Daniel Najera M.D. THIS IS AN ELECTRONICALLY VERIFIED REPORT Daniel Najera M.D. at 12/07/2016 5:12 PM RUBY/jennifer TD: 12/07/2016 11:40 JOB #: [id number] MEDICAL IMAGING REPORT Page 1 of 1 COPY
[2016-12-07 18:21] LABS: BASOPHIL% 0.2 % (0-2.5); EOSINOPHIL% 0.1 % (0.0-7.0); HEMOGLOBIN 11.8 gm/dL (13.0-16.0); LYMPHOCYTE# 0.4 X10e3 (1.0-3.5); LYMPHOCYTE% 5.6 % (17.0-45.0); MEAN CELL VOLUME 88.8 FL (83-96); MEAN CORPUSCULAR HEMOGLOBIN 26.9 PG (28-34); MEAN CORPUSCULAR HGB CONC 30.3 g/dL (30-36); MEAN PLATELET VOLUME 8.4 FL (6.5-11.5); MONOCYTE# 0.2 X10e3 (0-1.0); MONOCYTE% 3.5 % (3.0-12.0); NEUTROPHIL# 6.2 X10e3 (1.5-7.1); NEUTROPHIL% 90.6 % (40-75); PLATELET COUNT 161 X10e3 (140-420); RED BLOOD COUNT 4.39 X10e (3.90-5.60); RED CELL DISTRIBUTION WIDTH 19.5 % (11.0-15.5); WHITE BLOOD COUNT 6.8 X10e3 (4.0-10.5)
[2016-12-07 18:22] LABS: DIFF IND NO
[2016-12-08] MEDS ORDERED: GABAPENTIN800 MG PO (04:18)
[2016-12-08] MEDS ORDERED: FLOMAX0.4 M1 PO (04:19)
[2016-12-08] MEDS ORDERED: LASIX PO (04:19)
[2016-12-08] MEDS ORDERED: VISTARIL50 MG PO (04:20)
[2016-12-08] MEDS ORDERED: PROZAC40 MG PO (04:20)
[2016-12-08] MEDS ORDERED: MOTRIN400 M1 PO (04:21)
[2016-12-08] MEDS ORDERED: SYMBICORT INH (04:22)
[2016-12-08] MEDS ORDERED: ALBUTEROL20 ml INH (04:23)
[2016-12-08] MEDS ORDERED: PANTOPRAZOLE SO40 MG PO (04:41)
[2016-12-08 06:31] LABS: BASOPHIL% 0.7 % (0-2.5); EOSINOPHIL% 0.1 % (0.0-7.0); LYMPHOCYTE# 1.3 X10e3 (1.0-3.5); LYMPHOCYTE% 19.3 % (17.0-45.0); MEAN CELL VOLUME 86.4 FL (83-96); MEAN CORPUSCULAR HEMOGLOBIN 26.9 PG (28-34); MEAN CORPUSCULAR HGB CONC 31.2 g/dL (30-36); MEAN PLATELET VOLUME 8.2 FL (6.5-11.5); MONOCYTE% 14.7 % (3.0-12.0); NEUTROPHIL# 4.3 X10e3 (1.5-7.1); NEUTROPHIL% 65.2 % (40-75); PLATELET COUNT 165 X10e3 (140-420); RED BLOOD COUNT 3.59 X10e (3.90-5.60); RED CELL DISTRIBUTION WIDTH 19.2 % (11.0-15.5); WHITE BLOOD COUNT 6.6 X10e3 (4.0-10.5)
[2016-12-08 06:38] LABS: HEMOGLOBIN 9.7 gm/dL (13.0-16.0)
[2016-12-08 06:39] LABS: DIFF IND NO
[2016-12-08 06:51] LABS: PROTHROMBIN TIME (PATIENT) 10.7 SECONDS (9.6-11.5)
[2016-12-08 07:03] LABS: ALBUMIN SERUM 3.7 g/dL (3.5-5.0); BILIRUBIN,TOTAL 0.5 mg/dL (0.2-2.0); CREATININE SERUM 0.6 mg/dL (0.6-1.4); GLOM FILT RATE Estimated 119.8 mL/min (>60); POTASSIUM 4.2 mmol/L (3.5-5.1); PROTEIN TOTAL SERUM 6.5 g/dL (6.0-8.3)
[2016-12-08 10:50] LABS: HEMATOCRIT 32.8 % (38.0-50.0); HEMOGLOBIN 10.2 gm/dL (13.0-16.0)
[2016-12-10 11:34] LABS: HEMATOCRIT 32.5 % (38.0-50.0); HEMOGLOBIN 10.1 gm/dL (13.0-16.0); MEAN CELL VOLUME 87.2 FL (83-96); MEAN CORPUSCULAR HEMOGLOBIN 27.1 PG (28-34); MEAN PLATELET VOLUME 8.8 FL (6.5-11.5); RED BLOOD COUNT 3.72 X10e (3.90-5.60); RED CELL DISTRIBUTION WIDTH 19.2 % (11.0-15.5); WHITE BLOOD COUNT 5.8 X10e3 (4.0-10.5)
[2016-12-10 12:46] LABS: BUN/CREATININE RATIO 22.85; CALCIUM SERUM 10.6 mg/dL (8.4-10.2); CREATININE SERUM 0.7 mg/dL (0.6-1.4); GLOM FILT RATE Estimated 112.4 mL/min (>60); POTASSIUM 4.5 mmol/L (3.5-5.1)
[2016-12-11 07:12] LABS: HEMOGLOBIN 10.3 gm/dL (13.0-16.0); MEAN CELL VOLUME 86.7 FL (83-96); MEAN CORPUSCULAR HGB CONC 31.1 g/dL (30-36); MEAN PLATELET VOLUME 8.5 FL (6.5-11.5); RED BLOOD COUNT 3.8 X10e (3.90-5.60); RED CELL DISTRIBUTION WIDTH 18.5 % (11.0-15.5); WHITE BLOOD COUNT 6.3 X10e3 (4.0-10.5)
[2016-12-11 07:45] LABS: BUN/CREATININE RATIO 21.25; CALCIUM SERUM 10.4 mg/dL (8.4-10.2); CREATININE SERUM 0.8 mg/dL (0.6-1.4); GLOM FILT RATE Estimated 106.4 mL/min (>60); POTASSIUM 4.6 mmol/L (3.5-5.1)
[2016-12-11] MEDS ORDERED: THERAPEUTIC VI1 EACH PO (13:32)
[2016-12-11] MEDS ORDERED: MUCINEX100 MG PO (13:33)
[2016-12-11] MEDS ORDERED: DOXYCYCLINE HY100 M3 PO (13:33)
[2016-12-11] MEDS ORDERED: PREDNISONE PO (13:34)
[2016-12-11] MEDS ORDERED: FOLIC ACID1 MG PO (13:34)
[2016-12-11] MEDS ORDERED: THIAMINE HCL100 M1 PO (13:34)
[2016-12-11] MEDS ORDERED: SYMBICORT INH (13:36)
[2016-12-11] MEDS ORDERED: ALBUTEROL20 ml INH (13:36)
[2016-12-11] MEDS ORDERED: DULERA 200 MCG/13 GM INH (14:30)
== END 2016-12-11 16:28 | disposition home or self-care (01) | DRG 189 ==
LOC: CED 11:04 → CEDOF 15:20 → C5B 12-08 00:02
PROVIDERS: Emergency Medicine; Family Medicine; Physician Assistant Medical
PROC: 05HA33Z Insertion of Infusion Device into Left Brachial Vein, Percutaneous Approach (ICD-10-PCS; principal; 2016-12-07)
PROC: B54NZZA Ultrasonography of Left Upper Extremity Veins, Guidance (ICD-10-PCS; 2016-12-07)
DX: J96.01 Acute respiratory failure with hypoxia (principal); J44.1 Chronic obstructive pulmonary disease with (acute) exacerbation; Z91.19 Patient's noncompliance with other medical treatment and regimen; I48.0 Paroxysmal atrial fibrillation; E66.9 Obesity, unspecified; Z68.32 Body mass index [BMI] 32.0-32.9, adult; F10.10 Alcohol abuse, uncomplicated; F32.9 Major depressive disorder, single episode, unspecified; F41.9 Anxiety disorder, unspecified; D53.9 Nutritional anemia, unspecified; K21.9 Gastro-esophageal reflux disease without esophagitis; G89.29 Other chronic pain; M54.9 Dorsalgia, unspecified; F17.210 Nicotine dependence, cigarettes, uncomplicated; F19.10 Other psychoactive substance abuse, uncomplicated; Z88.8 Allergy status to other drugs, medicaments and biological substances; Z86.718 Personal history of other venous thrombosis and embolism; Z86.711 Personal history of pulmonary embolism; Z82.49 Family history of ischemic heart disease and other diseases of the circulatory system
CPT/HCPCS: 71010; 80048; 80053; 83735; 83880; 84484; 85014; 85018; 85025; 85027; 85610; 93005; 94640; 94664; 94760; 99285; J2930; J2997; J3411; J7042

== ENCOUNTER 2016-12-13 15:09 | Emergency (ER) | payer OTHER ==
[~2016-12-13 15:09] MED LIST changes: +DULERA 200 MCG/13 GM INH; +MOTRIN400 M1 PO; +MUCINEX100 MG PO; +PANTOPRAZOLE SO40 MG PO; +THERAPEUTIC VI1 EACH PO; +THIAMINE HCL100 M1 PO
== END 2016-12-13 21:26 | disposition home or self-care (01) ==
LOC: CED 15:09
DX: F10.129 Alcohol abuse with intoxication, unspecified (principal); Y90.9 Presence of alcohol in blood, level not specified; J44.9 Chronic obstructive pulmonary disease, unspecified; F17.200 Nicotine dependence, unspecified, uncomplicated; Z88.8 Allergy status to other drugs, medicaments and biological substances; Z79.899 Other long term (current) drug therapy
CPT/HCPCS: 99282

== ENCOUNTER 2016-12-14 05:42 | Inpatient (IN) | payer OTHER ==
--- NOTE | ~2016-12-14 | DS ---
Unit #: [id number] #: [id number] Patient: IVONE JUSTIN [id number] [facility] [address] [place] [address] [id number] I MR#: [id number] NAME: IVONE JUSTIN ROOM: [facility] Age: 46 Sex: M Admission Date: 12/14/2016 : 1970 Discharge Date: 12/16/2016 Attending Physician: Anish Ramos M.D. Primary Care Physician: Gabriele Valencia M.D. DISCHARGE SUMMARY REASON FOR ADMISSION The patient is a 46-year-old male, admitted to the [facility] unit reporting suicidal ideation. HOSPITAL COURSE The patient was admitted to the [facility] unit and placed on suicide precautions. He was placed on routine detoxification protocol. All previously prescribed medications were ordered. The patient was gently confronted regarding his somewhat less than credible statements that a sister had a couple of days prior to admission. The point having been that the patient had reported that a few had prior to his previous admission and prior to that, another sister had . The patient's detox was uneventful and he never voiced any suicidal ideation and in fact never voiced any words about his sister's reported to this physician until queried about this. Whatever the case, the patient was felt to have maximum benefit from psychiatric hospitalization on 12/16/2016. Discharge was ordered. FINAL DIAGNOSES Alcohol use disorder, dysthymic disorder, antisocial personality disorder, benign prostatic hypertrophy, chronic obstructive pulmonary disease. DISCHARGE MEDICATIONS For complete listing of the patient's medications, please refer to the medication reconciliation form. DISCHARGE INSTRUCTIONS No dietary or physical restrictions were placed upon the patient at the time of discharge. FOLLOWUP Followup will take place through the auspices of community mental health resources. PROGNOSIS The patient's prognosis is poor. Dictated by... Anish Ramos M.D. CB/favian Unit #: [id number] #: [id number] Patient: IVONE JUSTIN TD: 12/16/2016 16:41 JOB #: [id number] DISCHARGE SUMMARY Page 1 of 1 X Anish Ramos MD X DISCHARGE SUMMARY
--- NOTE | ~2016-12-14 | PA ---
Unit #: [id number] #: [id number] Patient: IVONE JUSTIN [id number] [facility] [address] [place] [address] [id number] I MR#: [id number] NAME: IVONE JUSTIN ROOM: [facility] Age: 46 Sex: M Admission Date: 12/14/2016 : 1970 Date of Assessment: 12/14/2016 Attending Physician: Anish Ramos M.D. Admitting Physician: Anish Ramos M.D. Primary Care Physician: Gabriele Valencia M.D. PSYCHIATRIC ASSESSMENT IDENTIFYING INFORMATION The patient is a 46-year-old white male well known to this physician. He was just discharged on 12/11/2016 but returns claiming to be suicidal. CHIEF COMPLAINT None given. INFORMANT(S) Patient and chart, reliability good. HISTORY OF PRESENT ILLNESS The patient is a 46-year-old white male just discharged from this facility 3 days prior this readmission. He returns claiming to be having suicidal ideation related to the recent of his sister. It is interesting to note that the patient has per his report lost 2 sisters recently as well as a nephew in a 4-montalvo accident. Hence the veracity of his claims of these multiple family seems less than optimally credible. Whatever the case, the patient was reporting plan to get a gun and shoot himself. He also reported that he was drinking a liter and half of 100 Proof vodka on a daily basis. He had last use alcohol at 0200 hours on 12/13/2016 per his report. When seen today, the patient continues to state that he is hoping to go for residential chemical dependence treatment. He states that he was thwarted in his attempt to go last time secondary to his lack of identification. For more complete history of present illness, please refer to multiple previously dictated notes. PAST PSYCHIATRIC HISTORY Reviewed, no changes. PAST MEDICAL HISTORY Reviewed, no changes. MEDICATIONS Proventil, Symbicort, Lasix, Neurontin, Protonix, Requip, Prozac, trazodone, Motrin, Mucinex, Vistaril, and Flomax. ALLERGIES Remeron, Zofran, and strawberries. FAMILY HISTORY Reviewed, no changes. SOCIAL HISTORY Unit #: [id number] #: [id number] Patient: IVONE JUSTIN Reviewed, no changes. MENTAL STATUS EXAMINATION Examination at this time reveals the patient to be an obese disheveled white male appearing his stated age. He is in no apparent physical distress at the time of examination. He is awake, alert, and oriented in all spheres. His mood is euthymic, his affect congruent. Speech is generally well coherent. There are no gross deficits in memory or cognition noted. Intelligence is judged to be in the average range based on fund of knowledge. The patient is generally cooperative during interview. He is currently denying suicidal or homicidal ideation or psychotic features. His judgment and insight appear to be at baseline. ASSETS AND LIABILITIES The patient's assets are to be assessed. Liabilities: Lack of resources. DIAGNOSTIC IMPRESSION 1. Alcohol use disorder. 2. Dysthymic disorder. 3. Antisocial personality disorder. 4. Benign prostatic hypertrophy. 5. Gastroesophageal reflux disease. 6. Chronic pain. 7. Hypertension. 8. Asthma. 9. Chronic obstructive pulmonary disease. TREATMENT PLAN The patient remains hospitalized for safety and stabilization. Suicide precautions remain in place, and routine detoxification protocol has been initiated. The patient has been firmly confronted regarding his frequent readmissions to this facility. I have told him to expect discharge as early as tomorrow. It is interesting to note that during interview the patient does not mention his sister's until prompted to do so by this physician. During the course of interview, he is much more future oriented with regard to going to residential treatment, obtaining his ID, etc. Dictated by... Anish Ramos M.D. KEARA/cleo TD: 12/14/2016 14:36 JOB #: [id number] Unit #: [id number] #: [id number] Patient: IVONE JUSTIN PSYCHIATRIC ASSESSMENT Page 1 of 1 X Anish Ramos MD X PSYCHIATRIC ASSESSMENT
--- NOTE | ~2016-12-14 | HP ---
Unit #: [id number] #: [id number] Patient: TESSA JUSTIN [id number] [place] [address] [id number] I MR#: [id number] NAME: TESSA JUSTIN ROOM: [facility] Age: 46 Sex: M Admission Date: 12/14/2016 : 1970 Attending Physician: Anish Ramos M.D. Admitting Physician: Anish Ramos M.D. Primary Care Physician: Gabriele Valencia M.D. HISTORY AND PHYSICAL HISTORY OF PRESENT ILLNESS Tessa is a 46 year old admitted to [facility] because of his continued abuse of alcohol. He has had numerous admissions to this facility for treatment of the same. PAST MEDICAL HISTORY 1. Long history of alcohol abuse. 2. COPD. 3. Morbid obesity. 4. GERD. 5. History of withdrawal seizures. 6. High blood pressure. 7. BPH. 8. History of melanoma, anterior chest wall. PAST SURGICAL HISTORY Resection of a melanoma along his anterior chest wall. ALLERGIES Morphine, Risperdal, Remeron. SOCIAL HISTORY Smokes 1 pack per day. Drinks alcohol on a daily basis and denies illicit drug use. FAMILY HISTORY Medically noncontributory. REVIEW OF SYSTEMS CONSTITUTIONAL: No fever or chills. HEENT: Denies any sore throat, ear pain or runny nose. CARDIOVASCULAR: Denies chest pain, irregular heart rhythm or palpitations. CHEST: Denies shortness of breath or cough. No hemoptysis. GASTROINTESTINAL: Denies nausea, vomiting, diarrhea or chronic constipation. ENDOCRINE: Denies history of increased thirst or urination. No recent significant weight loss or gain. GENITOURINARY: Denies dysuria, frequency, or hematuria. SKIN: Denies any rashes. HEMATOLOGIC: Denies history of increased bleeding or bruising. MUSCULOSKELETAL: Denies any hot, swollen joints. No generalized muscle pain. NEUROLOGIC: Denies problems with vision or speech. No frequent, severe Unit #: [id number] #: [id number] Patient: TESSA JUSTIN headaches. No numbness, tingling or weakness in any extremities. Denies loss of bladder or bowel control. CURRENT MEDICATIONS 1. Detox protocol. 2. Requip 0.25 mg q.h.s. 3. Symbicort 2 puffs b.i.d. 4. Flomax 0.4 mg daily. 5. Prozac 40 mg daily. PHYSICAL EXAMINATION GENERAL: Alert, morbidly obese, no apparent distress. VITAL SIGNS: Blood pressure 134/70, heart rate 80, respirations 16, temperature 98.6. WEIGHT: 276. HEIGHT: 6 feet 4 inches. SKIN: Warm and dry without rash or lesion. HEENT: Normocephalic. TMs not viewed. Oral and nasal passages clear. Conjunctivae clear. PERRLA. EOMs intact. NECK: Supple without lymphadenopathy or thyromegaly. HEART: Regular rate and rhythm without murmur. LUNGS: Clear. ABDOMEN: Soft, nontender. : Not done. EXTREMITIES: No evidence of cyanosis, clubbing or edema. Moves all without focal deficit. NEUROLOGICAL: Grossly within normal limits. Cranial Nerves: II: Visual faulkner are intact. III, IV AND : Extraocular movements are intact. Pupils are equal, round and reactive to light. V: Facial sensation is grossly normal. VII: Facial movements and expression are normal. VIII: Auditory acuity grossly intact. IX, X: Uvula is midline. Phonation is normal. XI: Patient shrugs shoulders and turns head normally. XII: Tongue protrudes in the midline. Sensory and Motor Function: Sensory and motor sensation is grossly normal. Motor: moves all extremities well. Coordination: Gait is normal. Deep Tendon Reflexes: Intact. IMPRESSION Psychiatric admission. RECOMMENDATIONS PSYCHIATRIC: Per psychiatrist. MEDICAL: See no contraindications to participate in facility's activities. MEDICAL PROGNOSIS Good. MEDICAL CONDITION Stable. Dictated by... Tonia Jason P.A.-C. for Uli Hussein M.D. Unit #: [id number] #: [id number] Patient: TESSA JUSTIN ROSA/dung TD: 12/14/2016 20:39 JOB #: [id number] HISTORY AND PHYSICAL Page 1 of 1 X Tonia Jason HISTORY AND PHYSICAL
--- NOTE | ~2016-12-14 | PN ---
Unit #: [id number] #: [id number] Patient: IVONE JUSTIN [id number] [facility] [address] [place] [address] [id number] MR#: [id number] NAME: IVONE JUSTIN ROOM: [facility] Age: 46 Sex: M Admission Date: 12/14/2016 : 1970 Attending Physician: Anish Ramos M.D. Admitting Physician: Anish Ramos M.D. Primary Care Physician: Kristy Raygoza PROGRESS NOTES DATE 12/15/2016 DISCUSSION The patient states that he has made arrangements for housing tomorrow and with completion of discharge will plan on a.m. discharge. Dictated by... Anish Ramos M.D. CB/dung TD: 12/15/2016 16:16 JOB #: [id number] [facility] PROGRESS NOTES Page 1 of 1 X Anish Ramos MD X PROGRESS NOTE
[2016-12-16 13:34] LABS: URINE APPEARANCE CLEAR; URINE BILIRUBIN NEG (NEG); URINE BLOOD NEG (NEG); URINE COLOR YELLOW; URINE GLUCOSE NEG (NEG); URINE KETONE NEG (NEG); URINE LEUKOCYTE ESTERASE NEG (NEG); URINE NITRATE NEG (NEG); URINE PH 5.5 (5-8); URINE PROTEIN NEG (NEG); URINE SPECIFIC GRAVITY 1.004 (1.003-1.035); URINE UROBILINOGEN 0.2 MG/DL (NEG)
[2016-12-16 13:43] LABS: AMPHETAMINE NEG (NEG); BARBITURATES NEG (NEG); BENZODIAZEPINES POS (NEG); COCAINE NEG (NEG); MARIJUANA NEG (NEG); OPIATES NEG (NEG); TRICYCLIC ANTIDEPRESSANTS NEG (NEG); U METHADONE NEG (NEG)
== END 2016-12-16 14:08 | disposition home or self-care (01) | DRG 897 ==
LOC: P1E 05:42
PROVIDERS: Specialist
DX: F10.10 Alcohol abuse, uncomplicated (principal); I10 Essential (primary) hypertension; F34.1 Dysthymic disorder; F60.2 Antisocial personality disorder; N40.0 Benign prostatic hyperplasia without lower urinary tract symptoms; K21.9 Gastro-esophageal reflux disease without esophagitis; G89.29 Other chronic pain; J45.909 Unspecified asthma, uncomplicated; J44.9 Chronic obstructive pulmonary disease, unspecified
CPT/HCPCS: 80307; 81003; 82947

== ENCOUNTER 2016-12-18 19:00 | Emergency (ER) | payer OTHER | END 2016-12-18 23:00 | disposition left against medical advice (07) | LOC: CED 19:00 | DX: Z53.21 Procedure and treatment not carried out due to patient leaving prior to being seen by health care provider (principal) ==

== ENCOUNTER 2016-12-24 11:54 | Inpatient (IN) | payer OTHER ==
--- NOTE | ~2016-12-24 | EKG ---
PATIENT: IVONE JUSTIN UNIT #: [id number] Ventricular Rate: 92 BPM Atrial Rate: 92 BPM P-R Interval: 158 ms QRS Duration: 100 ms Q-T Interval: 364 ms QTC Calculation(Bezet): 450 ms P [place]: 44 degrees Calculated R [place]: -24 degrees Calculated T [place]: 49 degrees Diagnosis Line: Normal sinus rhythm Diagnosis Line: Minimal voltage criteria for LVH, may be normal Diagnosis Line: variant Diagnosis Line: Borderline ECG Diagnosis Line: When compared with ECG of 07-DEC-2016 15:47, Diagnosis Line: No significant change was found Diagnosis Line: Confirmed by DESHAUN MITCHELL MD ([id number]) on 12/24/2016 Diagnosis Line: 10:53:02 PM INTERPRETING MD: STEPHEN CARRANZA
--- NOTE | ~2016-12-24 | DS ---
Unit #: [id number] #: [id number] Patient: IVONE JUSTIN [id number] [facility] [address]. [place], [place] [address] [id number] MR#: [id number] NAME: IVONE JUSTIN ROOM: 241 Age: 46 Sex: M Admission Date: 12/24/2016 : 1970 Discharge Date: 12/25/2016 Attending Physician: Uli Hussein M.D. Primary Care Physician: Gabriele Valencia M.D. DISCHARGE SUMMARY DISPOSITION [facility]. HISTORY OF PRESENT ILLNESS The patient is a 46-year-old male, well known to our hospitalist service, who has had recurrent hospital admissions secondary to chronic obstructive pulmonary disease exacerbation as well as alcohol intoxication. He presented to [facility] with acute suicidal ideation, alcohol intoxication as well as stating that he had drank several bottles of rubbing alcohol as well as mouthwash. Therefore he was transferred for medical stabilization at [facility]. While he was here, seen and evaluated in the emergency room, he did not have evidence of acute acidosis. He was maintained on IV fluids overnight, as well as continued on Librium and CIWA protocol. He did not require any IV Ativan. At the present time he is medically stable for transfer to [facility] for ongoing care. At the time of discharge his creatinine is currently 0.6. CBC shows baseline hemoglobin 9.2, white blood cell count 3.2 and platelets 121, which likely represents pancytopenia from his chronic alcohol abuse. Dr. Gao will be seeing him and evaluating the patient later this morning. Once further arrangements have been made the patient will be transferred to [facility] for ongoing care. FINAL DISCHARGE DIAGNOSES 1. Acute suicidal ideation. 2. Isopropyl ingestion. 3. Alcohol abuse. 4. Hypokalemia on admission, resolved. 5. Chronic anemia secondary to alcohol abuse. 6. Chronic thrombocytopenia secondary to alcohol use. 7. Endstage chronic obstructive pulmonary disease on home O2. 8. Prior history of DVT. 9. Prior history of pulmonary embolism. 10. Not on chronic anticoagulation secondary to high fall risk and poor compliance. 11. Paroxysmal atrial fibrillation. 12. Gastroesophageal reflux disease. 13. Chronic pain syndrome, not on narcotic secondary to high fall risk. 14. Longstanding history of noncompliance. 15. Morbid obesity. Unit #: [id number] #: [id number] Patient: IVONE JUSTIN FINAL DISCHARGE MEDICATIONS 1. Albuterol nebulized solution q.4 h. p.r.n. 2. Symbicort 160/4.5 two puffs b.i.d. 3. Prednisone 40 mg p.o. daily times 3 days. 4. Flomax 0.4 mg p.o. daily 5. Tylenol 650 mg p.o. q.6 h. p.r.n. 6. Neurontin 800 mg p.o. q.6 h. 7. Prozac 40 mg p.o. daily. 8. Trazodone 300 mg p.o. at nighttime. 9. Vistaril 50 mg p.o. q.6 h. p.r.n. 10. Librium 25 mg p.o. q.6 h. times 5 days. 11. Lasix 20 mg p.o. daily. 12. Humibid LA 600 mg p.o. b.i.d. 13. Multivitamin daily. 14. Protonix 40 mg p.o. b.i.d. 15. Folic acid 1 mg p.o. daily. 16. Thiamine 100 mg p.o. daily. DISCHARGE CONDITION Stable. DISCHARGE DISPOSITION [facility]. Dictated by... Kristy Serrano/emma TD: 12/25/2016 15:22 JOB #: [id number] DISCHARGE SUMMARY Page 1 of 1 X Uli Hussein MD X DISCHARGE SUMMARY
--- NOTE | ~2016-12-24 | CO ---
Unit #: [id number] #: [id number] Patient: TESSA JUSTIN [id number] [facility] [address] [facility] [place] [facility]. [place], [place] [address] [id number] I MR#: [id number] NAME: TESSA JUSTIN ROOM: 241 Age: 46 Sex: M Admission Date: 12/24/2016 : 1970 Attending Physician: Uli Hussein M.D. Primary Care Physician: Gabriele Valencia M.D. Consultation Date: 12/25/2016 CONSULTATION REPORT REASON FOR CONSULTATION Depression, alcohol abuse, suicidal ideation. HISTORY OF PRESENT ILLNESS Mr. Tessa Justin is a 46-year-old white male seen in room 241, bed 1, on 12/25/2016 at [facility]. Patient was admitted on December 24. Patient reported having trouble breathing, has a sitter in the room, dressed casually in hospital attire. Patient's vital signs are 98.7, 89, 18, 120/67, oxygen saturation 97%. Patient reported that he needs a sitter as he is unable to contract for safety at this time. Reported the last drink was three days ago. Patient admitted with a suicide attempt, reported drank several bottles of rubbing alcohol as well as mouthwash to . Patient's blood alcohol level was 303 at the time of admission, creatinine 0.7. Patient denied any auditory or visual hallucination. PAST PSYCHIATRIC HISTORY Past psychiatric history is remarkable for history of numerous admissions at [facility] with similar complaints. PAST MEDICAL HISTORY AND MEDICATION HISTORY History of COPD, paroxysmal atrial fibrillation, prior history of DVT, PE, GERD, chronic pain, morbid obesity, poor support system. Medication history: Patient is on Neurontin, Lasix, Flomax, Vistaril, Prozac, Motrin, albuterol, pantoprazole, multivitamin, doxycycline, Mucinex, folic acid, thiamin, prednisone, Dulera inhaler. ALLERGIES Zofran and Remeron. FAMILY HISTORY AND SOCIAL HISTORY Poor support system. No history of abuse. Currently homeless. History of substance abuse, alcohol. REVIEW OF SYSTEMS Complete review of systems unremarkable except as mentioned above. MENTAL STATUS EXAMINATION GENERAL APPEARANCE: Patient tall, well built, dressed casually in hospital attire, receiving oxygen through nasal cannula. Patient has a sitter at the bedside. Attention span and concentration: Fair. Unit #: [id number] #: [id number] Patient: TESSA JUSTIN SPEECH: A regular rate, coherent. ORIENTATION: Oriented in time, place and person. MOOD AND AFFECT: Sad, depressed. THOUGHT PROCESS: Coherent. THOUGHT CONTENT: Patient denied any homicidal ideation but having suicidal ideation, unable to contract for safety. Denied any plan. Recent suicide attempt. Denies any auditory or visual hallucination. MEMORY: Recent and remote memory fair. LANGUAGE: Intact. Fund of knowledge: Fair. Insight and judgment: Fair to slightly impaired. DIAGNOSES PSYCHIATRIC: 1. Major depressive disorder, recurrent, severe, F33.2. 2. Alcohol use disorder, severe, F10.20. SECONDARY: Deferred. MEDICAL: Please refer to H and P. STRESSORS Psychosocial stressors. ASSESSMENT AND PLAN 1. Supportive psychotherapy and psychoeducation provided to patient. 2. Educated about benefits and side effects of medication and course and prognosis of illness. 3. Advised to continue with the sitter at this time and transfer patient [facility] as soon a patient is medically stable for inpatient psychiatric stabilization. Dictated by... Kristy Moise/sena TD: 12/25/2016 17:10 JOB #: [id number] CONSULTATION REPORT Page 1 of 1 X Kevin Gao MD CONSULTATION REPORT
--- NOTE | ~2016-12-24 | HP ---
Unit #: [id number] #: [id number] Patient: IVONE JUSTIN [id number] [facility] [address] [facility]. [place], [place] [address] [id number] I MR#: [id number] NAME: IVONE JUSTIN ROOM: 241 Age: 46 Sex: M Admission Date: 12/24/2016 : 1970 Attending Physician: Uli Hussein M.D. Primary Care Physician: Gabriele Valencia M.D. HISTORY AND PHYSICAL REASON FOR ADMISSION Suicidal attempt. HISTORY OF PRESENT ILLNESS The patient originally was evaluated at [facility]. He states that he drank several bottles of rubbing alcohol as well as mouthwash in the hopes to kill himself. He states that he was feeling down, was unable to find any alcohol; therefore, began drinking mouthwash as well as rubbing alcohol. He presented to [facility] for further evaluation. While he was there, the patient was subsequently transferred to [facility] for medical clearance. The patient's initial alcohol level was 303. His initial creatinine was 0.7. He does not appear to have acidosis, CO2 of 21, creatinine 0.7. PAST MEDICAL HISTORY 1. Numerous hospital admissions secondary to respiratory failure, noncompliance as well as alcohol intoxication. 2. COPD. 3. Ongoing tobacco abuse. 4. Paroxysmal atrial fibrillation, not on chronic anticoagulation secondary to high fall risk as well as poor compliance. 5. Prior history of DVT. 6. Prior history of PE. 7. GERD. 8. Chronic pain syndrome. 9. Morbid obesity. 10. Alcohol abuse, ongoing, with poor insight into disease process. 11. Poor social support. 12. Homelessness in past. PAST SURGICAL HISTORY 1. Testicular surgery. 2. Excision of left neck cyst. 3. Left upper extremity open reduction internal fixation. 4. Excisional biopsy of anterior chest wall lesion. ALLERGIES Zofran, Remeron. HOME MEDICATIONS Unit #: [id number] #: [id number] Patient: IVONE JUSTIN 1. Neurontin. 2. Lasix. 3. Flomax. 4. Vistaril. 5. Prozac. 6. Motrin. 7. Albuterol. 8. Pantoprazole. 9. Multivitamin. 10. Doxycycline. 11. Mucinex. 12. Folic acid. 13. Thiamine. 14. Prednisone. 15. Dulera inhaler. ALLERGIES As mentioned above. FAMILY HISTORY Reviewed. Noncontributory and non-pertinent. SOCIAL HISTORY Positive tobacco use, one to two packs of cigarettes per day. Positive alcohol use on a daily basis. Negative illicit drug use. Patient denies. REVIEW OF SYSTEMS Please see HPI. Twelve point otherwise negative except for those positives noted in HPI. PHYSICAL EXAMINATION VITAL SIGNS: Temperature 97.3, pulse 93, respiratory rate 21, blood pressure 126/63. GENERAL APPEARANCE: The patient is a 46-year-old male lying comfortably, in no acute distress. HEAD EXAM: Atraumatic, normocephalic. EAR EXAM: Tympanic membranes do not reveal any erythema or injection. NECK EXAM: Supple. No JVD, no carotid bruit. CVS: S1, S2. Tachycardic without murmur. RESPIRATORY: Poor exchange is noted with prolonged expirations. Scattered wheezing noted. GI/ABDOMEN: Distention noted. Nontender. EXTREMITIES: Lower extremity exam - 1+ lower extremity edema noted. No calf tenderness. NEUROLOGICAL EXAM: The patient is A and O x3. No evidence of any focal nerve deficits. DIAGNOSTIC STUDIES IMAGING: Initial laboratory studies including radiological studies show a chest x-ray with no acute process. LABORATORY: Laboratory studies as mentioned above show a potassium of 3.4, hemoglobin 10.5, serum osmolality 361. ABG normal. CARDIOVASCULAR: Initial EKG shows normal sinus, rate 72. Unit #: [id number] #: [id number] Patient: IVONE JUSTIN INITIAL ADMISSION DIAGNOSES 1. Isopropanol ingestion. 2. Suicidal ideation. 3. Chronic alcohol dependence/alcohol abuse. 4. Ongoing tobacco abuse. 5. Chronic obstructive pulmonary disease. 6. Noncompliance. 7. History of hypertension. 8. Hyperlipidemia. 9. Morbid obesity. 10. Obstructive sleep apnea with noncompliance. PLAN Admission. IV fluids overnight. Dr. Gao consult. Repeat labs in a.m. It seems likely patient will be medically stable in a.m. to be transferred to [facility] for ongoing evaluation and/or further care. Plans have been reviewed with patient. 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 Dictated by Kristy Serrano/brittany TD: 12/25/2016 12:26 JOB #: [id number] HISTORY AND PHYSICAL Page 1 of 1 X Uli Hussein MD X HISTORY AND PHYSICAL
--- NOTE | ~2016-12-24 | CR72 ---
[facility] A Service of [facility] & [facility] RADIOLOGY TEXT RESULTS PATIENT: IVONE JUSTIN LOCATION: [facility] 241-01 : [birth year] UNIT #: [id number] AGE: [address]: Uli Hussein MD SEX: M ORDER DR: [id number] [facility] [address] [place], [place] [address] [id number] E MR#: [id number] Acc #: [id number] NAME: IVONE JUSTIN : 1970 SEX: M STUDY DATE/TIME: 12/24/2016 12:10 UNIT: DONNY ROOM: STUDY DESCRIPTION: CR Chest Single View Portable Attending Physician: Sarwat Villafuerte M.D. Ordering Physician: Sarwat Villafuerte M.D. Primary Care Physician: Gabriele Valencia M.D. MEDICAL IMAGING REPORT This report is preliminary unless electronic signature is present EXAM Single view chest dated 12/24/2016 COMPARISON Single view chest dated 12/07/2016 HISTORY Shortness of air today. FINDINGS Single view of the chest was obtained. There is probably minimal atelectasis/infiltrate in the left lateral lower lung zone probably in the left lower lobe, stable for the last 2 weeks. No associated pleural effusion or pneumothorax. Remaining findings are stable too. Heart is borderline in size. Postoperative changes with hardware are noted in the left humeral head. Dictated by... Petar White M.D. THIS IS AN ELECTRONICALLY VERIFIED REPORT Petar White M.D. at 12/25/2016 3:22 PM CPR/kemal TD: 12/24/2016 14:15 JOB #: [id number] MEDICAL IMAGING REPORT Page 1 of 1 COPY
[2016-12-24 12:17] LABS: ARTERIAL BLOOD GAS CARBOXY HB 8.1 %sat (0.0-9.0); ARTERIAL BLOOD GAS HCO3 23.5 mmol/L; ARTERIAL BLOOD GAS MET HB 0.7 %sat (0.0-2.0); ARTERIAL BLOOD GAS pH 7.356 (7.350-7.450)
[2016-12-24 12:18] LABS: ARTERIAL BLOOD GAS ALLEN TEST NORMAL; ARTERIAL BLOOD GAS ART SITE LEFT RADIAL; ARTERIAL BLOOD GAS DELIVERY ROOM AIR; ARTERIAL BLOOD GAS PO2 65.5 mmHg (80.0-100); ARTERIAL DRAW? YES
[2016-12-24 13:00] LABS: BASOPHIL% 0.2 % (0-2.5); HEMATOCRIT 33.4 % (38.0-50.0); HEMOGLOBIN 10.5 gm/dL (13.0-16.0); LYMPHOCYTE# 0.9 X10e3 (1.0-3.5); LYMPHOCYTE% 8.9 % (17.0-45.0); MEAN CELL VOLUME 85.4 FL (83-96); MEAN CORPUSCULAR HEMOGLOBIN 26.7 PG (28-34); MEAN CORPUSCULAR HGB CONC 31.3 g/dL (30-36); MEAN PLATELET VOLUME 7.4 FL (6.5-11.5); MONOCYTE# 0.4 X10e3 (0-1.0); MONOCYTE% 4.4 % (3.0-12.0); NEUTROPHIL# 8.3 X10e3 (1.5-7.1); NEUTROPHIL% 86.5 % (40-75); PLATELET COUNT 153 X10e3 (140-420); RED BLOOD COUNT 3.92 X10e (3.90-5.60); RED CELL DISTRIBUTION WIDTH 19.1 % (11.0-15.5); WHITE BLOOD COUNT 9.6 X10e3 (4.0-10.5)
[2016-12-24 13:01] LABS: DIFF IND NO
[2016-12-24 13:12] LABS: PROTHROMBIN TIME (PATIENT) 10.5 SECONDS (9.6-11.5)
[2016-12-24 13:28] LABS: ALBUMIN SERUM 3.6 g/dL (3.5-5.0); ALKALINE PHOSPHATASE 94 U/L (32-92); ALT (SGPT) 56 U/L (10-40); AST (SGOT) 35 U/L (10-42); BILIRUBIN, DIRECT 0.1 mg/dL (0.0-0.2); BILIRUBIN,INDIRECT 0.2 mg/dL (0.0-0.9); BILIRUBIN,TOTAL 0.3 mg/dL (0.2-2.0); BLOOD UREA NITROGEN 7 mg/dL (9-23); CALCIUM SERUM 9.2 mg/dL (8.4-10.2); CARBON DIOXIDE 21 mmol/L (22-31); CHLORIDE 103 mmol/L (100-111); CREATININE SERUM 0.7 mg/dL (0.6-1.4); GLOM FILT RATE Estimated 112.4 mL/min (>60); GLUCOSE FASTING 109 mg/dL (70-110); POTASSIUM 3.4 mmol/L (3.5-5.1); PROTEIN TOTAL SERUM 6.9 g/dL (6.0-8.3); SALICYLATE <4.0 mg/dL; SODIUM 140 mmol/L (135-145)
[2016-12-24 13:38] LABS: URINE SOURCE CLEAN CATCH
[2016-12-24 13:39] LABS: ACETAMINOPHEN <10 ug/mL
[2016-12-24 13:41] LABS: ALCOHOL BLOOD 303 mg/dL (0)
[2016-12-24 13:44] LABS: URINE APPEARANCE CLEAR; URINE BILIRUBIN NEG (NEG); URINE COLOR YELLOW; URINE GLUCOSE NEG (NEG); URINE KETONE NEG (NEG); URINE LEUKOCYTE ESTERASE NEG (NEG); URINE NITRATE NEG (NEG); URINE PH 5.5 (5-8); URINE PROTEIN NEG (NEG); URINE SPECIFIC GRAVITY 1.003 (1.003-1.035); URINE UROBILINOGEN 0.2 MG/DL (NEG)
[2016-12-24 14:05] LABS: URINE BLOOD 3+ (NEG)
[2016-12-24 14:13] LABS: CULTURE INDICATED? NO
[2016-12-24] MEDS ORDERED: SYMBICORT INH (15:48)
[2016-12-24 17:12] LABS: AMPHETAMINE NEG (NEG); BARBITURATES NEG (NEG); BENZODIAZEPINES POS (NEG); COCAINE NEG (NEG); MARIJUANA NEG (NEG); OPIATES NEG (NEG); TRICYCLIC ANTIDEPRESSANTS NEG (NEG); U METHADONE NEG (NEG)
[2016-12-25 07:14] LABS: HEMOGLOBIN 9.2 gm/dL (13.0-16.0); MEAN CELL VOLUME 85.7 FL (83-96); MEAN CORPUSCULAR HEMOGLOBIN 26.4 PG (28-34); MEAN CORPUSCULAR HGB CONC 30.8 g/dL (30-36); MEAN PLATELET VOLUME 7.8 FL (6.5-11.5); RED BLOOD COUNT 3.5 X10e (3.90-5.60); RED CELL DISTRIBUTION WIDTH 19.3 % (11.0-15.5)
[2016-12-25 07:16] LABS: WHITE BLOOD COUNT 3.2 X10e3 (4.0-10.5)
[2016-12-25 07:48] LABS: BUN/CREATININE RATIO 11.66; CREATININE SERUM 0.6 mg/dL (0.6-1.4); GLOM FILT RATE Estimated 119.8 mL/min (>60); POTASSIUM 3.3 mmol/L (3.5-5.1)
== END 2016-12-25 16:21 | DRG 918 ==
LOC: CED 11:54 → CEDOF 15:45 → C2A 20:30
PROVIDERS: Emergency Medicine; Family Medicine
PROC: 02HV33Z Insertion of Infusion Device into Superior Vena Cava, Percutaneous Approach (ICD-10-PCS; principal; 2016-12-24)
PROC: 4A02X4A Measurement of Cardiac Electrical Activity, Guidance, External Approach (ICD-10-PCS; 2016-12-24)
DX: T51.2X2A Toxic effect of 2-Propanol, intentional self-harm, initial encounter (principal); D69.6 Thrombocytopenia, unspecified; F33.2 Major depressive disorder, recurrent severe without psychotic features; E66.01 Morbid (severe) obesity due to excess calories; I48.0 Paroxysmal atrial fibrillation; F10.20 Alcohol dependence, uncomplicated; F17.210 Nicotine dependence, cigarettes, uncomplicated; J44.9 Chronic obstructive pulmonary disease, unspecified; Z91.19 Patient's noncompliance with other medical treatment and regimen; I10 Essential (primary) hypertension; E78.5 Hyperlipidemia, unspecified; G47.33 Obstructive sleep apnea (adult) (pediatric); K21.9 Gastro-esophageal reflux disease without esophagitis; Z86.718 Personal history of other venous thrombosis and embolism; Z86.711 Personal history of pulmonary embolism; E87.6 Hypokalemia; D64.89 Other specified anemias; G89.4 Chronic pain syndrome; Z68.32 Body mass index [BMI] 32.0-32.9, adult
CPT/HCPCS: 36415; 36600; 71010; 80048; 80076; 80307; 81003; 82693; 82803; 83930; 84600; 85025; 85027; 85610; 93005; 94640; 94760; 99285; G0480

== ENCOUNTER 2016-12-25 16:37 | Inpatient (IN) | payer OTHER ==
--- NOTE | ~2016-12-25 | PA ---
Unit #: [id number] #: [id number] Patient: IVONE JUSTIN [id number] [facility] [address] [place] [address] [id number] I MR#: [id number] NAME: IVONE JUSTIN ROOM: P208 Age: 46 Sex: M Admission Date: 12/25/2016 : 1970 Date of Assessment: 12/26/2016 Attending Physician: Anish Ramos M.D. Admitting Physician: Anish Ramos M.D. Primary Care Physician: Gabriele Valencia M.D. PSYCHIATRIC ASSESSMENT DATE 12/26/2016 IDENTIFYING INFORMATION The patient is a 46-year-old white male well known to this facility, readmitted after he had presented to [facility] voicing suicidal ideation. CHIEF COMPLAINT None given. INFORMANT(S) Patient. RELIABILITY Fair. HISTORY OF PRESENT ILLNESS The patient is a 46-year-old white male admitted after he had presented to [facility] reported ingested nonbeverage alcohol, specifically mouthwash. The patient denies this was a suicide attempt stating that he was "it is 26% alcohol but tastes terrible." The patient is currently denying suicidal or homicidal ideation and states that he has sufficient funds to arrange for a fci house, but has as of yet been unable to make arrangements for such a facility. He denies current suicidal or homicidal ideation and exhibits little in the way of signs of symptoms of withdrawal. He states that he had gone on a "3 day binge." He was last discharged from this facility on 12/24/2016. PAST PSYCHIATRIC HISTORY Reviewed, no changes. PAST MEDICAL HISTORY Reviewed, no changes. MEDICATIONS Proventil, Lasix, Neurontin, Protonix, Requip, Prozac, Desyrel, Motrin, Symbicort, Flomax, Vistaril. ALLERGIES Remeron, Zofran, strawberries. FAMILY HISTORY Reviewed, no changes. Unit #: [id number] #: [id number] Patient: IVONE JUSTIN SOCIAL HISTORY Reviewed, no changes. MENTAL STATUS EXAM At this time reveals the patient to be an morbidly obese white male appearing his stated age. He is in no apparent physical distress at the time of the examination. He is awake, alert, oriented in all spheres. His mood is euthymic. His affect congruent. Speech is generally relevant and coherent. There are no gross deficits in memory or cognition noted. Intelligence is judged to be in the average range based on fund of knowledge. The patient is generally cooperative during interview. He is currently reporting no suicidal or homicidal ideation or psychotic features. Judgement/insight appear to be at baseline. ASSETS AND LIABILITIES Patient's assets to be assessed. Liabilities, lack of resources. DIAGNOSTIC IMPRESSION 1. Alcohol use disorder. 2. Dysthymic disorder. 3. Benign prostatic hypertrophy. 4. COPD. 5. Chronic pain. TREATMENT PLAN The patient states that he would like arrangements for discharge in the morning and is requesting for orders be put in today for discharge to take place at that time and it will be so ordered as the patient is currently exhibiting no signs or symptoms of withdrawal and is denying suicidal ideation. Dictated by... Anish Ramos M.D. Debi TD: 12/26/2016 14:55 JOB #: [id number] PSYCHIATRIC ASSESSMENT Page 1 of 1 X Anish Ramos MD X PSYCHIATRIC ASSESSMENT
--- NOTE | ~2016-12-25 | HP ---
Unit #: [id number] #: [id number] Patient: TESSA JUSTIN [id number] [facility] [address] [place] [address] [id number] I MR#: [id number] NAME: TESSA JUSTIN ROOM: P208 Age: 46 Sex: M Admission Date: 12/25/2016 : 1970 Attending Physician: Anish Ramos M.D. Admitting Physician: Anish Ramos M.D. Primary Care Physician: Gabriele Valencia M.D. HISTORY AND PHYSICAL HISTORY OF PRESENT ILLNESS Tessa is a 46-year-old admitted to [address] [place] [address] because of his continued abuse of alcohol. He was just discharged from this facility after treatment for the same. Patient was seen and H and P dated 12/14/2016 was reviewed. This is current. No changes. Please see H and P dated 12/14/2016. Dictated by... Goldy Montague/michael TD: 12/26/2016 11:59 JOB #: [id number] HISTORY AND PHYSICAL Page 1 of 1 X Tonia Jason HISTORY AND PHYSICAL
--- NOTE | ~2016-12-25 | DS ---
Unit #: [id number] #: [id number] Patient: IVONE JUSTIN [id number] [facility] [address] [place] [address] [id number] I MR#: [id number] NAME: IVONE JUSTIN ROOM: [facility] Age: 46 Sex: M Admission Date: 12/25/2016 : 1970 Discharge Date: 12/27/2016 Attending Physician: Anish Ramos M.D. Primary Care Physician: Gabriele Valencia M.D. DISCHARGE SUMMARY ANTICIPATED DATE OF DISCHARGE 12/27/2016. REASON FOR ADMISSION The patient is a 46-year-old white male, admitted after ingestion of non-beverage alcohol. The patient states that this was not a suicide bid. HOSPITAL COURSE The patient was admitted to the [address] [place] [address] unit and placed on routine detoxification protocol for alcohol. Initially, this physician had been led to believe that the patient's ingestion of non-beverage alcohol has been secondary to a suicide attempt. However, the patient denied that this was a suicide attempt stating that the patient requested discharge to take place the following day and orders were . FINAL DIAGNOSES Alcohol use disorder, dysthymic disorder, chronic obstructive pulmonary disease, benign prostatic hypertrophy, chronic pain. DISPOSITION ON DISCHARGE For complete listing of the patient's medications, please refer to the MAR attached to the chart. DISCHARGE INSTRUCTIONS No dietary or physical restrictions were placed on the patient at the time of discharge. PROGNOSIS His prognosis remains guarded. Dictated by... Anish Ramos M.D. CB/favian TD: 12/27/2016 01:15 JOB #: [id number] Unit #: [id number] #: [id number] Patient: IVONE JUSTIN DISCHARGE SUMMARY Page 1 of 1 X Anish Ramos MD X DISCHARGE SUMMARY
[2016-12-26 12:24] LABS: BASOPHIL% 0.4 % (0-2.5); EOSINOPHIL% 0.4 % (0.0-7.0); HEMOGLOBIN 9.7 gm/dL (13.0-16.0); LYMPHOCYTE# 0.7 X10e3 (1.0-3.5); LYMPHOCYTE% 15.1 % (17.0-45.0); MEAN CELL VOLUME 85.1 FL (83-96); MEAN CORPUSCULAR HEMOGLOBIN 26.5 PG (28-34); MEAN CORPUSCULAR HGB CONC 31.2 g/dL (30-36); MEAN PLATELET VOLUME 8.3 FL (6.5-11.5); MONOCYTE# 0.4 X10e3 (0-1.0); NEUTROPHIL# 3.6 X10e3 (1.5-7.1); NEUTROPHIL% 76.1 % (40-75); PLATELET COUNT 133 X10e3 (140-420); RED BLOOD COUNT 3.64 X10e (3.90-5.60); RED CELL DISTRIBUTION WIDTH 19.3 % (11.0-15.5); WHITE BLOOD COUNT 4.7 X10e3 (4.0-10.5)
[2016-12-26 12:27] LABS: DIFF IND NO
[2016-12-26 12:36] LABS: ALBUMIN SERUM 3.3 g/dL (3.5-5.0); BILIRUBIN,TOTAL 0.5 mg/dL (0.2-2.0); BUN/CREATININE RATIO 12.85; CALCIUM SERUM 9.5 mg/dL (8.4-10.2); CREATININE SERUM 0.7 mg/dL (0.6-1.4); GLOM FILT RATE Estimated 112.4 mL/min (>60); PROTEIN TOTAL SERUM 6.2 g/dL (6.0-8.3)
[2016-12-27 09:37] LABS: URINE APPEARANCE CLEAR; URINE BILIRUBIN NEG (NEG); URINE BLOOD NEG (NEG); URINE COLOR DK YELLOW; URINE GLUCOSE NEG (NEG); URINE KETONE NEG (NEG); URINE LEUKOCYTE ESTERASE TRACE (NEG); URINE NITRATE POS (NEG); URINE PROTEIN NEG (NEG); URINE SPECIFIC GRAVITY 1.013 (1.003-1.035); URINE UROBILINOGEN 0.2 MG/DL (NEG)
[2016-12-27 09:41] LABS: URBCS1 AUWI 0-2 /[HPF] (0-2); URINE BACTERIA AUWI NEG (NEGATIVE); URINE SQUAMOUS EPITHELIAL CELL OCC /[HPF]
[2016-12-27 09:59] LABS: URINE MUCUS PRESENT
[2016-12-27 10:33] LABS: AMPHETAMINE NEG (NEG); BARBITURATES NEG (NEG); BENZODIAZEPINES POS (NEG); COCAINE NEG (NEG); MARIJUANA NEG (NEG); OPIATES NEG (NEG); TRICYCLIC ANTIDEPRESSANTS NEG (NEG); U METHADONE NEG (NEG)
== END 2016-12-27 06:09 | disposition home or self-care (01) | DRG 897 ==
LOC: P2S 16:37
PROVIDERS: Specialist
PROC: HZ2ZZZZ Detoxification Services for Substance Abuse Treatment (ICD-10-PCS; principal; 2016-12-26)
DX: F10.10 Alcohol abuse, uncomplicated (principal); J44.9 Chronic obstructive pulmonary disease, unspecified; F34.1 Dysthymic disorder; N40.0 Benign prostatic hyperplasia without lower urinary tract symptoms; G89.29 Other chronic pain
CPT/HCPCS: 80053; 80307; 81003; 85025

== ENCOUNTER 2016-12-27 11:56 | Emergency (ER) | payer OTHER | END 2016-12-27 12:00 | disposition home or self-care (01) | LOC: CED 11:56 | DX: J44.1 Chronic obstructive pulmonary disease with (acute) exacerbation (principal); F10.20 Alcohol dependence, uncomplicated; J45.909 Unspecified asthma, uncomplicated; F17.200 Nicotine dependence, unspecified, uncomplicated | CPT/HCPCS: 99282 ==

== ENCOUNTER 2016-12-27 16:32 | Emergency (ER) | payer OTHER | END 2016-12-27 23:53 | disposition home or self-care (01) | LOC: CED 16:32 | DX: F10.229 Alcohol dependence with intoxication, unspecified (principal); I10 Essential (primary) hypertension; K21.9 Gastro-esophageal reflux disease without esophagitis; J44.9 Chronic obstructive pulmonary disease, unspecified; Z79.899 Other long term (current) drug therapy | CPT/HCPCS: 36415; 99283; G0480 ==

== ENCOUNTER 2017-01-02 13:12 | Emergency (ER) | payer OTHER ==
--- NOTE | ~2017-01-02 | CR63 ---
[facility] A Service of [facility] & [facility] RADIOLOGY TEXT RESULTS PATIENT: IVONE JUSTIN LOCATION: [facility] : [birth year] UNIT #: [id number] AGE: [address]: Vlad Gomez MD SEX: M ORDER DR: [id number] [facility] [address] [place], [place] [address] [id number] E MR#: [id number] Acc #: [id number] NAME: IVONE JUSTIN : 1970 SEX: M STUDY DATE/TIME: 01/02/2017 21:24 UNIT: [facility] ROOM: STUDY DESCRIPTION: CR Chest 2 View Attending Physician: Jesús Gomez M.D. Ordering Physician: Odilon Sherman D.O. Primary Care Physician: Gabriele Valencia M.D. MEDICAL IMAGING REPORT This report is preliminary unless electronic signature is present EXAM PA and lateral chest HISTORY Cough and shortness of air for 2 days. FINDINGS 2 views of the chest demonstrate mild cardiac enlargement. Normal pulmonary vascularity. No airspace infiltrates or pleural effusions. Incidental small calcified granuloma in the right base. IMPRESSION Mild cardiac enlargement. No active disease. Dictated by... Dhaval Sher M.D. THIS IS AN ELECTRONICALLY VERIFIED REPORT Dhaval Sher M.D. at 01/02/2017 11:18 PM MARLEEN/austin TD: 01/02/2017 22:51 JOB #: [id number] MEDICAL IMAGING REPORT Page 1 of 1 COPY
--- NOTE | ~2017-01-02 | CT4 ---
[facility] A Service of [facility] & [facility] RADIOLOGY TEXT RESULTS PATIENT: IVONE JUSTIN LOCATION: [facility] : 68 UNIT #: [id number] AGE: [address]: Vlad Gomez MD SEX: M ORDER DR: [id number] [facility] [address] [place], [place] [address] [id number] E MR#: [id number] Acc #: [id number] NAME: IVONE JUSTIN : 1970 SEX: M STUDY DATE/TIME: 01/02/2017 21:20 UNIT: [facility] ROOM: STUDY DESCRIPTION: CT Abd and Pelv Wo Cont Attending Physician: Jesús Gomez M.D. Ordering Physician: Odilon Sherman D.O. Primary Care Physician: Gabriele Valencia M.D. MEDICAL IMAGING REPORT This report is preliminary unless electronic signature is present EXAM CT abdomen and pelvis without contrast HISTORY Generalized abdomen pain today. TECHNIQUE This CT exam was performed with one or more of the following radiation dose reduction techniques: automatic exposure control, adjustment of mA and/or kV according to patient size, and iterative reconstruction. CT abdomen and pelvis was performed without contrast FINDINGS CT abdomen: Mild linear atelectasis or scarring in the inferior left lung base in the lower lobe, and mild bronchiectasis in the left lower lobe. Diffuse fatty infiltration of liver. The gallbladder, spleen, pancreas, and adrenal glands are normal. A 1 cm hyperdense hemorrhagic or proteinaceous cyst in the lateral upper pole left kidney and approximately 3 cm intermediate density exophytic mass lateral lower pole left kidney are similar to CT 08/01/2014, likely hemorrhagic or proteinaceous cysts. There is an approximately 1 cm exophytic cyst at the inferior tip of the lower pole left kidney. 2 mm nonobstructing stone lower pole left kidney and 1 mm stone in the lower pole right kidney, but no hydronephrosis. Normal caliber abdominal aorta. No bowel wall dilatation. 2 cm umbilical hernia containing fat. Normal caliber small and large bowel. Aorta is unremarkable. CT pelvis: Normal appendix. There is a 2.8 cm bladder stone. No bladder wall thickening. Old healed fracture right inferior pubic ramus and anterior right acetabulum. Old healed sacral fracture. Old compression fracture of L1. [facility]. [facility] A Service of [facility] RADIOLOGY TEXT RESULTS PATIENT: IVONE JUSTIN LOCATION: [facility] : 68 UNIT #: [id number] AGE: [address]: Vlad Gomez MD SEX: M ORDER DR: IMPRESSION 1. No acute findings. No urinary obstruction or bowel obstruction. 2. A 2 mm nonobstructing stone in the lower pole left kidney. 3. Hemorrhagic or proteinaceous left renal cysts. 4. Normal appendix. 5. Umbilical hernia containing fat. No bowel herniation. 6. A 2.8 cm bladder stone. Dictated by... Dhaval Sher M.D. THIS IS AN ELECTRONICALLY VERIFIED REPORT Dhaval Sher M.D. at 01/02/2017 11:18 PM MARLEEN/austin TD: 01/02/2017 23:00 JOB #: [id number] MEDICAL IMAGING REPORT Page 1 of 1 COPY
[2017-01-02 21:23] LABS: BASOPHIL% 0.4 % (0-2.5); EOSINOPHIL% 1.2 % (0.0-7.0); HEMATOCRIT 32.7 % (38.0-50.0); HEMOGLOBIN 10.3 gm/dL (13.0-16.0); LYMPHOCYTE# 1.5 X10e3 (1.0-3.5); LYMPHOCYTE% 40.9 % (17.0-45.0); MEAN CELL VOLUME 83.7 FL (83-96); MEAN CORPUSCULAR HEMOGLOBIN 26.4 PG (28-34); MEAN CORPUSCULAR HGB CONC 31.6 g/dL (30-36); MEAN PLATELET VOLUME 6.8 FL (6.5-11.5); MONOCYTE# 0.4 X10e3 (0-1.0); NEUTROPHIL# 1.6 X10e3 (1.5-7.1); NEUTROPHIL% 45.5 % (40-75); PLATELET COUNT 189 X10e3 (140-420); RED BLOOD COUNT 3.91 X10e (3.90-5.60); WHITE BLOOD COUNT 3.6 X10e3 (4.0-10.5)
[2017-01-02 21:26] LABS: DIFF IND NO
[2017-01-02 21:49] LABS: ALBUMIN SERUM 3.1 g/dL (3.5-5.0); BILIRUBIN,TOTAL 0.4 mg/dL (0.2-2.0); BUN/CREATININE RATIO 13.75; CALCIUM SERUM 8.3 mg/dL (8.4-10.2); CREATININE SERUM 0.8 mg/dL (0.6-1.4); GLOM FILT RATE Estimated 106.4 mL/min (>60); POTASSIUM 3.4 mmol/L (3.5-5.1); PROTEIN TOTAL SERUM 6.1 g/dL (6.0-8.3)
== END 2017-01-03 02:23 | disposition home or self-care (01) ==
LOC: CED 13:12
PROVIDERS: Emergency Medicine
DX: F10.20 Alcohol dependence, uncomplicated (principal); K21.9 Gastro-esophageal reflux disease without esophagitis; J44.9 Chronic obstructive pulmonary disease, unspecified; F32.9 Major depressive disorder, single episode, unspecified; Z88.8 Allergy status to other drugs, medicaments and biological substances; Z91.018 Allergy to other foods
CPT/HCPCS: 36415; 71020; 74176; 80053; 83690; 84484; 85025; 94640; 96374; 96375; 99284; J2930

== ENCOUNTER 2017-01-11 14:00 | Inpatient (IN) | payer OTHER ==
--- NOTE | ~2017-01-11 | HP ---
Unit #: [id number] #: [id number] Patient: IVONE JUSTIN [id number] [facility] [address] [place] [address] [id number] MR#: [id number] NAME: IVONE JUSTIN ROOM: [facility] Age: 46 Sex: M Admission Date: 01/11/2017 : 1970 Attending Physician: Anish Ramos M.D. Admitting Physician: Anish Ramos M.D. Primary Care Physician: Gabriele Valencia M.D. HISTORY AND PHYSICAL HISTORY OF PRESENT ILLNESS The patient is a 46-year-old man who has been admitted to [facility] for his continued abuse of alcohol usage. Multiple admissions to this facility for the same. PAST MEDICAL HISTORY 1. Long history of alcohol abuse. 2. COPD. 3. Morbid obesity. 4. GERD. 5. History of withdrawal seizures. 6. Hypertension. 7. BPH. 8. History of melanoma anterior chest wall. 9. Atrial fibrillation. 10. Noncompliance. PAST SURGICAL HISTORY Resection of melanoma along his anterior chest wall. ALLERGIES Zofran, Remeron, morphine, and Risperdal. HOME MEDICATIONS 1. Proventil HFA 8 grams p.o. 2 puffs q. 4 hours. 2. Symbicort 150/4.5 mcg 2 puffs b.i.d. 3. Lasix 20 mg p.o. daily. 4. Neurontin 800 mg p.o. 4 times a day. 5. Protonix 40 mg daily. 6. Requip 0.25 mg p.o. at night. 7. Prozac 20 mg p.o. daily. 8. Trazodone 300 mg p.o. at night. 9. Motrin 800 mg p.o. q. 4 hours p.r.n. pain. 10. Vistaril 50 mg p.o. q. 6 hour p.r.n. 11. Flomax 0.4 mg p.o. daily. FAMILY HISTORY Medically noncontributory. SOCIAL HISTORY Endorses tobacco and alcoholism. Denies illicit drug use. REVIEW OF SYSTEMS Unit #: [id number] #: [id number] Patient: IVONE JUSTIN CONSTITUTIONAL: Denies fever or chills. HEENT: Denies sore throat, ear pain, or runny nose. CARDIOVASCULAR: Denies chest pain, irregular heart rate, or palpitations. CHEST: Endorses shortness of breath. Denies cough or hemoptysis. GI: Denies nausea, vomiting, diarrhea, or chronic constipation. ENDOCRINE: Denies history of increased thirst or urination. No recent significant weight loss or gain. : Denies dysuria, frequency, or hematuria. SKIN: Denies any rashes. HEMATOLOGIC: Denies any increased bleeding or bruising. MUSCULOSKELETAL: Denies any hot, swollen joints. No generalized pain. NEUROLOGIC: Denies problem with speech or vision. No frequent severe headaches. No numbness, tingling, or weakness in any extremities. PHYSICAL EXAMINATION GENERAL: The patient is awake, alert, in no acute distress. VITAL SIGNS: Temperature 97.8, heart rate 91, respirations 20, blood pressure 116/70. She is 6 feet 4 and weighs 276 pounds. HEENT: Head is atraumatic, normocephalic. Pupils are equal, round, and reactive. Extraocular movements are intact. No drainage from ears or nose. NECK: Supple. Trachea is midline. HEART: Regular rate and rhythm. LUNGS: Clear. ABDOMEN: Soft, nontender, nondistended. Bowel sounds are positive all 4 quadrants. EXTREMITIES: No clubbing, cyanosis, or edema. SKIN: Warm, dry. NEUROLOGIC: Within normal limits. Cranial nerves II through XII are intact. No focal deficits. Coordination: Gait normal. Deep tendon reflexes intact. IMPRESSION 1. Psychiatric admission. 2. Chronic obstructive pulmonary disease. RECOMMENDATIONS PSYCHIATRIC: Reviewed per psychiatry. MEDICAL: COPD: We will continue the patient's home medications. I seen no contraindication to participate in this facility activities. MEDICAL PROGNOSIS Fair. MEDICAL CONDITION Stable. Dictated by... Allison Schofield A.P.R.N. for Kristy Serrano TD: 01/12/2017 12:50 JOB #: [id number] Unit #: [id number] #: [id number] Patient: IVONE JUSTIN HISTORY AND PHYSICAL Page 1 of 1 X Allison Schofield APRN X HISTORY AND PHYSICAL
--- NOTE | ~2017-01-11 | PA ---
Unit #: [id number] #: [id number] Patient: IVONE JUSTIN [id number] [facility] [address] [place] [address] [id number] I MR#: [id number] NAME: IVONE JUSTIN ROOM: [facility] Age: 46 Sex: M Admission Date: 01/11/2017 : 1970 Date of Assessment: 01/12/2017 Attending Physician: Anish Ramos M.D. Admitting Physician: Anish Ramos M.D. Primary Care Physician: Gabriele Valencia M.D. PSYCHIATRIC ASSESSMENT IDENTIFYING INFORMATION The patient is a 46-year-old white male admitted voicing positive suicidal ideation with plan to shoot himself. CHIEF COMPLAINT None given. INFORMANT(S) Patient and chart, reliability good. HISTORY OF PRESENT ILLNESS The patient is a 46-year-old white male well known to this physician from multiple previous admissions to this facility. He is admitted with recurrent suicidal ideation with plan to shoot himself. The patient has access to a gun that is in the possession of a friend. The patient reports use of 1.5 liters of vodka on a daily basis prior to coming to the hospital. For more complete history of present illness, please refer to previously dictated notes. PAST PSYCHIATRIC HISTORY Reviewed, no changes. PAST MEDICAL HISTORY Reviewed, no changes. MEDICATIONS Flomax, Proventil, Symbicort, Lasix, Neurontin, Protonix, Requip, Prozac, trazodone, Vistaril, Motrin. ALLERGIES Zofran and Remeron. FAMILY HISTORY Reviewed, no changes. SOCIAL HISTORY Reviewed, no changes. MENTAL STATUS EXAMINATION Examination at this time reveals the patient to be an obese large-statured white male appearing stated age. He is in no apparent physical distress at the time of examination. He is awake, alert, and oriented in all spheres. His mood is dysphoric, his affect constricted. Speech is Unit #: [id number] #: [id number] Patient: IVONE JUSTIN generally well-coherent. There are no gross deficits in memory or cognition noted. Intelligence is judged to be in the average range based on fund of knowledge. The patient is cooperative throughout the interview. He is currently endorsing positive suicidal ideation. He denies homicidal ideation. He denies any psychotic symptoms. His judgment and insight appear to be intact. ASSETS AND LIABILITIES The patient's assets are to be assessed. Liabilities: Lack of resources, homelessness, ongoing substance use. DIAGNOSTIC IMPRESSION 1. Dysthymic disorder. 2. Alcohol use disorder. 3. Dysthymic disorder. 4. Antisocial personality disorder. 5. Benign prostatic hypertrophy. 6. Chronic obstructive pulmonary disease. 7. Chronic pain. 8. Obesity. 9. Hypertension. TREATMENT PLAN The patient remains hospitalized for safety and stabilization. We will restart previously prescribed medications and watch for any signs or symptoms of substance withdrawal. Suicide precautions are in place. It is the hope of this physician that the patient will be able to go to "(1) __ [facility]" in [place] on Sunday morning should his suicidal thinking have subsided at that point. ESTIMATED LENGTH OF STAY 3 days. Dictated by... Anish Ramos M.D. KEARA/cleo TD: 01/12/2017 14:59 JOB #: [id number] PSYCHIATRIC ASSESSMENT Page 1 of 1 X Anish Ramos MD X PSYCHIATRIC ASSESSMENT
--- NOTE | ~2017-01-11 | DS ---
Unit #: [id number] #: [id number] Patient: IVONE JUSTIN [id number] [facility] [address] [place] [address] [id number] I MR#: [id number] NAME: IVONE JUSTIN ROOM: [facility] Age: 46 Sex: M Admission Date: 01/11/2017 : 1970 Discharge Date: Attending Physician: Anish Ramos M.D. Primary Care Physician: Gabriele Valencia M.D. DISCHARGE SUMMARY ANTICIPATED DATE OF DISCHARGE 01/15/2017. REASON FOR ADMISSION The patient is a 46-year-old white male, well known to this facility. He was readmitted voicing suicidal ideation with recurrent alcohol use. HOSPITAL COURSE The patient was admitted to the [address] [place] [address] unit and placed on suicide precautions. He was placed on routine detoxification protocol for alcohol and home medications were continued. The patient's social science teacher, Mr. Elaine, made arrangements for the [facility] on 01[facility]15/2017 and discharge was ordered to facilitate that transfer. FINAL DIAGNOSES Alcohol use disorder, dysthymic disorder, antisocial personality disorder, chronic obstructive pulmonary disease, restless legs syndrome, benign prostatic hypertrophy, hypertension. DISPOSITION ON DISCHARGE The patient is discharged on the following medications: Proventil HFA one puff q.4 hours p.r.n. shortness of air, DuoNeb 3 mg p.r.n. shortness of air, Vibramycin 100 mg b.i.d. for upper respiratory infection, Vistaril 50 mg q.6 hours p.r.n. anxiety, Motrin 800 mg q.8 hours p.r.n. pain, Desyrel 300 mg at bedtime for insomnia, Prozac 40 mg daily for depression, Requip 0.25 mg at bedtime for restless legs syndrome, Protonix 40 mg daily for GERD, Neurontin 800 mg q.i.d. for chronic pain, Lasix 20 mg once daily for diuresis, Symbicort 2 puffs b.i.d. for COPD, Flomax 0.4 mg daily for benign prostatic hypertrophy. DISCHARGE INSTRUCTIONS No dietary or physical restrictions were placed upon the patient at the time of discharge. FOLLOWUP Followup will take place through the auspices of [facility] in [place], [place]. PROGNOSIS The patient's prognosis is considered fair. Unit #: [id number] #: [id number] Patient: IVONE JUSTIN Dictated by... Anish Ramos M.D. CB/favian TD: 01/14/2017 14:39 JOB #: [id number] DISCHARGE SUMMARY Page 1 of 1 X Anish Ramos MD X DISCHARGE SUMMARY
--- NOTE | ~2017-01-11 | PN ---
Unit #: [id number] #: [id number] Patient: IVONE JUSTIN [id number] [facility] [address] [place] [address] [id number] MR#: [id number] NAME: IVONE JUSTIN ROOM: [facility] Age: 46 Sex: M Admission Date: 01/11/2017 : 1970 Attending Physician: Anish Ramos M.D. Admitting Physician: Anish Ramos M.D. Primary Care Physician: Kristy Raygoza PROGRESS NOTES DATE 01/13/2017 DISCUSSION The patient is active within the therapeutic milieu. His detox is uneventful, and we expect Sunday morning discharge to [facility] in [place], [place]. Dictated by... Anish Ramos M.D. CB/bzg TD: 01/13/2017 12:04 JOB #: [id number] [facility] PROGRESS NOTES Page 1 of 1 X Anish Ramos MD X PROGRESS NOTE
== END 2017-01-15 10:51 | DRG 897 ==
LOC: P2S 17:27
PROC: HZ2ZZZZ Detoxification Services for Substance Abuse Treatment (ICD-10-PCS; principal; 2017-01-12)
DX: F10.10 Alcohol abuse, uncomplicated (principal); I10 Essential (primary) hypertension; F34.1 Dysthymic disorder; F60.2 Antisocial personality disorder; N40.0 Benign prostatic hyperplasia without lower urinary tract symptoms; J44.9 Chronic obstructive pulmonary disease, unspecified; G89.29 Other chronic pain; E66.9 Obesity, unspecified; G25.81 Restless legs syndrome

== ENCOUNTER 2017-01-27 11:46 | Emergency (ER) | payer OTHER | END 2017-01-27 17:50 | disposition home or self-care (01) | LOC: CED 11:46 | DX: F10.129 Alcohol abuse with intoxication, unspecified (principal); J44.9 Chronic obstructive pulmonary disease, unspecified; I10 Essential (primary) hypertension; F17.200 Nicotine dependence, unspecified, uncomplicated; Z91.018 Allergy to other foods; Z88.8 Allergy status to other drugs, medicaments and biological substances; Z79.899 Other long term (current) drug therapy | CPT/HCPCS: 82947; 94640; 99283 ==

== ENCOUNTER 2017-01-27 23:34 | Emergency (ER) | payer OTHER | END 2017-01-28 02:05 | disposition home or self-care (01) | LOC: CED 23:34 | DX: F10.129 Alcohol abuse with intoxication, unspecified (principal); F17.210 Nicotine dependence, cigarettes, uncomplicated; Z79.899 Other long term (current) drug therapy; Z91.018 Allergy to other foods; Z88.8 Allergy status to other drugs, medicaments and biological substances | CPT/HCPCS: 99282 ==

== ENCOUNTER 2017-02-07 17:40 | Emergency (ER) | payer OTHER | END 2017-02-08 18:50 | disposition home or self-care (01) | LOC: CED 17:40 | DX: Z53.21 Procedure and treatment not carried out due to patient leaving prior to being seen by health care provider (principal) ==

== ENCOUNTER 2017-02-08 22:10 | Inpatient (IN) | payer OTHER ==
--- NOTE | ~2017-02-08 | PN ---
Unit #: [id number] #: [id number] Patient: IVONE JUSTIN [id number] [facility] [address] [place] [address] [id number] MR#: [id number] NAME: IVONE JUSTIN ROOM: [facility] Age: 46 Sex: M Admission Date: 02/09/2017 : 1970 Attending Physician: Anish Ramos M.D. Admitting Physician: Anish Ramos M.D. Primary Care Physician: Kristy Raygoza PROGRESS NOTES DATE 02/12/2017 DISCUSSION The patient is working towards post discharge disposition. He is today apologetic over having mislead this physician and Mr. related to a recent admission to another facility and not surprisingly has exhibited little if any in the way of withdrawal symptoms even with discontinuation of his detoxification protocol. We expect a.m. discharge. Dictated by... Anish Ramos M.D. CB/laila TD: 02/13/2017 04:02 JOB #: [id number] [facility] PROGRESS NOTES Page 1 of 1 X Anish Ramos MD X PROGRESS NOTE
--- NOTE | ~2017-02-08 | DS ---
Unit #: [id number] #: [id number] Patient: IVONE JUSTIN [id number] [facility] [address] [place] [address] [id number] I MR#: [id number] NAME: IVONE JUSTIN ROOM: [facility] Age: 46 Sex: M Admission Date: 02/09/2017 : 1970 Discharge Date: 02/13/2017 Attending Physician: Anish Ramos M.D. Primary Care Physician: Gabriele Valencia M.D. DISCHARGE SUMMARY REASON FOR ADMISSION The patient is a 46-year-old white male, well known to this facility admitted with recurrence of alcohol use claiming to be suicidal. HOSPITAL COURSE The patient was admitted to the [address] [place] [address] unit and placed on suicide precautions. No detoxification protocol was deemed necessary. The patient had just left another facility 2 days prior to his readmission to the hospital. The patient was continued on previously prescribed medications and exhibited little in the way of signs symptoms of withdrawal. By 02/13/2017, the patient was denying suicidal ideation. Discharge was ordered. FINAL DIAGNOSES Alcohol use disorder; mood disorder, unspecified; antisocial personality disorder; benign prostatic hypertrophy; chronic obstructive pulmonary disease; restless legs syndrome; gastroesophageal reflux disease. DISPOSITION ON DISCHARGE The patient is discharged on the following medications: Neurontin 800 . Dictated by... Anish Ramos M.D. CB/favian TD: 02/13/2017 15:56 JOB #: [id number] DISCHARGE SUMMARY Page 1 of 1 X Anish Ramos MD X DISCHARGE SUMMARY
--- NOTE | ~2017-02-08 | DS ---
Unit #: [id number] #: [id number] Patient: IVONE JUSTIN [id number] [facility] [address] [place] [address] [id number] I MR#: [id number] NAME: IVONE JUSTIN ROOM: [facility] Age: 46 Sex: M Admission Date: 02/09/2017 : 1970 Discharge Date: 02/13/2017 Attending Physician: Anish Ramos M.D. Primary Care Physician: Gabriele Valencia M.D. DISCHARGE SUMMARY ADDENDUM DISPOSITION ON DISCHARGE For a complete listing of the patient's medications at the time of discharge, please refer to the medication reconciliation sheet. The patient will follow through the auspices of community mental health resources. PROGNOSIS His prognosis is considered guarded. Dictated by... Anish Ramos M.D. CB/favian TD: 02/16/2017 11:27 JOB #: [id number] DISCHARGE SUMMARY Page 1 of 1 X Anish Ramos MD X DISCHARGE SUMMARY
--- NOTE | ~2017-02-08 | PA ---
Unit #: [id number] #: [id number] Patient: IVONE JUSTIN [id number] [facility] [address] [place] [address] [id number] I MR#: [id number] NAME: IVONE JUSTIN ROOM: [facility] Age: 46 Sex: M Admission Date: 02/09/2017 : 1970 Date of Assessment: 02/09/2017 Attending Physician: Anish Ramos M.D. Admitting Physician: Anish Ramos M.D. Primary Care Physician: Gabriele Valencia M.D. PSYCHIATRIC ASSESSMENT IDENTIFYING INFORMATION The patient is a 46-year-old white male admitted to the [facility] with complaints of depressed mood and recurrent abuse of alcohol. INFORMANT(S) Patient. RELIABILITY Fair. CHIEF COMPLAINT None given. HISTORY OF PRESENT ILLNESS The patient is a 46-year-old white male last discharged from this facility on 01/15. He was to go to "[facility]" in [place], [place] but apparently was not able to afford accommodations there which are $130 a week. The patient states that he has been back in the [facility] since the 01 of February and has been drinking heavily since. He was reporting positive suicidal ideation when evaluated last evening. His blood alcohol on admission was .189. Today, the patient's most recent CIWA score is a 7 but his pulse is 100. He is not reporting any suicidal ideation at this point. For a more complete history of present please refer to previous dictated notes. PAST PSYCHIATRIC HISTORY Reviewed, no changes. FAMILY HISTORY/SOCIAL HISTORY Reviewed, no changes. MEDICAL HISTORY Reviewed, no changes. MEDICATION HISTORY 1. Proventil HFA. 2. DuoNeb. 3. Vistaril. 4. Motrin. 5. Desyrel. 6. Prozac. 7. Requip. 8. Protonix. Unit #: [id number] #: [id number] Patient: IVONE JUSTIN 9. Neurontin. 10. Lasix. 11. Symbicort. 12. Flomax. ALLERGIES Remeron, Zofran. MENTAL STATUS EXAM At this time, reveals the patient to be a disheveled obese white male appearing his stated age. He is in no apparent physical distress at the time of examination. He is awake, alert, oriented in all spheres. His mood is euthymic. His affect full range. Speech is generally relevant and coherent. There are no gross deficits in memory or cognition noted. Intelligence is judged to be in the average range based on fund of knowledge. The patient is cooperative throughout the interview. He is currently reporting no suicidal or homicidal ideation and denies any psychotic symptoms. His judgement and insight appear to be reasonably intact. ASSETS AND LIABILITIES Patient's assets to be assessed. Liabilities, lack of resources, ongoing substance use. ADMITTING DIAGNOSES 1. Alcohol use disorder. 2. Mood disorder, unspecified. 3. Benign prostatic hypertrophy. 4. Chronic obstructive pulmonary disease. 5. Chronic pain. 6. Obesity. PSYCHIATRIC PLAN/TREATMENT GOALS The patient remains hospitalized for safety and stabilization. All previously prescribed medications are in place and the patient is on suicide precautions given threats made at time of admission though it is doubtful that the patient would ever actually go through with any suicidal act as he has never done so in the past. ESTIMATED LENGTH OF STAY Three to four days with follow up to take place through the auspices of community mental health resources. Dictated by... Anish Ramos M.D. KEARA/dung TD: 02/09/2017 15:34 JOB #: [id number] Unit #: [id number] #: [id number] Patient: IVONE JUSTIN PSYCHIATRIC ASSESSMENT Page 1 of 1 X Anish Ramos MD X PSYCHIATRIC ASSESSMENT
--- NOTE | ~2017-02-08 | HP ---
Unit #: [id number] #: [id number] Patient: TESSA JUSTIN [id number] [facility] [address] [place] [address] [id number] I MR#: [id number] NAME: TESSA JUSTIN ROOM: [facility] Age: 46 Sex: M Admission Date: 02/09/2017 : 1970 Attending Physician: Anish Ramos M.D. Admitting Physician: Anish Ramos M.D. Primary Care Physician: Gabriele Valencia M.D. HISTORY AND PHYSICAL Tessa is a 46 year old admitted to [address] [place] [address] because of his continued abuse of alcohol. Patient was seen and H and P dated 01/12/17 was reviewed. This is current. No changes. Please see H and P dated 01/12/17. Dictated by... Tonia Jason P.A.-C. for Kristy Serrano/dung TD: 02/09/2017 21:24 JOB #: [id number] HISTORY AND PHYSICAL Page 1 of 1 X Tonia Jason HISTORY AND PHYSICAL
--- NOTE | ~2017-02-08 | PN ---
Unit #: [id number] #: [id number] Patient: IVONE JUSTIN [id number] [facility] [address] [place] [address] [id number] I MR#: [id number] NAME: IVONE JUSTIN ROOM: [facility] Age: 46 Sex: M Admission Date: 02/09/2017 : 1970 Attending Physician: Anish Ramos M.D. Admitting Physician: Anish Ramos M.D. Primary Care Physician: Gabriele Valencia M.D. [facility] PROGRESS NOTES DATE 02/11/2017 DISCUSSION The patient is active in the therapeutic milieu. He exhibits signs or symptoms of withdrawal. I have told him to expect a Sunday discharge. Dictated by... Anish Ramos M.D. CB/to TD: 02/11/2017 15:43 JOB #: [id number] [facility] PROGRESS NOTES Page 1 of 1 X Anish Ramos MD X PROGRESS NOTE
--- NOTE | ~2017-02-08 | PN ---
Unit #: [id number] #: [id number] Patient: IVONE JUSTIN [id number] [facility] [address] [place] [address] [id number] I MR#: [id number] NAME: IVONE JUSTIN ROOM: [facility] Age: 46 Sex: M Admission Date: 02/09/2017 : 1970 Attending Physician: Anish Ramos M.D. Admitting Physician: Anish Ramos M.D. Primary Care Physician: Kristy Raygoza PROGRESS NOTES DATE 02/10/2017 DISCUSSION The patient's detox continues uneventfully. He is denying suicidal ideation. I have discontinued his detoxification protocol as the patient had apparently only been out of a facility for less than 48 hours prior to his admission to this facility. He is apparently covered by insurance through Sunday and is informed that he will be discharged on or before that date. Dictated by... Anish Ramos M.D. CB/dung TD: 02/10/2017 12:50 JOB #: [id number] [facility] PROGRESS NOTES Page 1 of 1 X Anish Ramos MD X PROGRESS NOTE
== END 2017-02-13 15:05 | disposition home or self-care (01) | DRG 897 ==
LOC: P2S 02-09 05:02
PROC: HZ2ZZZZ Detoxification Services for Substance Abuse Treatment (ICD-10-PCS; principal; 2017-02-09)
DX: F10.10 Alcohol abuse, uncomplicated (principal); F39 Unspecified mood [affective] disorder; J44.9 Chronic obstructive pulmonary disease, unspecified; N40.0 Benign prostatic hyperplasia without lower urinary tract symptoms; G89.29 Other chronic pain; E66.9 Obesity, unspecified

== ENCOUNTER 2017-02-14 13:34 | Emergency (ER) | payer OTHER ==
[2017-02-14 15:10] LABS: ALBUMIN SERUM 3.7 g/dL (3.5-5.0); BILIRUBIN, DIRECT 0.1 mg/dL (0.0-0.2); BILIRUBIN,TOTAL 0.1 mg/dL (0.2-2.0); BUN/CREATININE RATIO 15.71; CALCIUM SERUM 9.2 mg/dL (8.4-10.2); CREATININE SERUM 0.7 mg/dL (0.6-1.4); GLOM FILT RATE Estimated 112.4 mL/min (>60); POTASSIUM 3.9 mmol/L (3.5-5.1); PROTEIN TOTAL SERUM 6.6 g/dL (6.0-8.3)
== END 2017-02-14 16:38 | disposition home or self-care (01) ==
LOC: CED 13:34
PROVIDERS: Emergency Medicine
DX: F10.129 Alcohol abuse with intoxication, unspecified (principal); J44.9 Chronic obstructive pulmonary disease, unspecified; F17.200 Nicotine dependence, unspecified, uncomplicated; Z88.8 Allergy status to other drugs, medicaments and biological substances; Z79.899 Other long term (current) drug therapy; Y90.8 Blood alcohol level of 240 mg/100 ml or more
CPT/HCPCS: 36415; 80048; 80076; 99284; G0480; J3411; J3475

== ENCOUNTER 2017-02-21 23:25 | Emergency (ER) | payer OTHER | END 2017-02-22 03:06 | disposition home or self-care (01) | LOC: CED 23:25 | DX: F10.129 Alcohol abuse with intoxication, unspecified (principal); J44.9 Chronic obstructive pulmonary disease, unspecified; I48.91 Unspecified atrial fibrillation; I25.2 Old myocardial infarction; I11.0 Hypertensive heart disease with heart failure; I50.9 Heart failure, unspecified; K21.9 Gastro-esophageal reflux disease without esophagitis; F17.210 Nicotine dependence, cigarettes, uncomplicated; Z87.442 Personal history of urinary calculi; Z79.899 Other long term (current) drug therapy; Z88.8 Allergy status to other drugs, medicaments and biological substances | CPT/HCPCS: 94640; 99284 ==

== ENCOUNTER 2017-03-03 14:22 | Emergency (ER) | payer OTHER | END 2017-03-03 15:30 | disposition home or self-care (01) | LOC: CED 14:22 | DX: F10.229 Alcohol dependence with intoxication, unspecified (principal); I11.0 Hypertensive heart disease with heart failure; I50.9 Heart failure, unspecified; I48.91 Unspecified atrial fibrillation; J44.9 Chronic obstructive pulmonary disease, unspecified; G40.909 Epilepsy, unspecified, not intractable, without status epilepticus; F17.200 Nicotine dependence, unspecified, uncomplicated; Z79.899 Other long term (current) drug therapy; Z88.8 Allergy status to other drugs, medicaments and biological substances; Z91.018 Allergy to other foods | CPT/HCPCS: 99283 ==

== ENCOUNTER 2017-03-04 16:26 | Emergency (ER) | payer OTHER | END 2017-03-05 05:43 | disposition home or self-care (01) | LOC: CED 16:26 | DX: F10.129 Alcohol abuse with intoxication, unspecified (principal); J44.9 Chronic obstructive pulmonary disease, unspecified; F17.200 Nicotine dependence, unspecified, uncomplicated; Z88.8 Allergy status to other drugs, medicaments and biological substances; Z79.899 Other long term (current) drug therapy | CPT/HCPCS: 94640; 99285 ==

== ENCOUNTER 2017-03-05 10:14 | Emergency (ER) | payer OTHER ==
[2017-03-05 12:08] LABS: BASOPHIL% 0.4 % (0-2.5); EOSINOPHIL% 0.2 % (0.0-7.0); HEMATOCRIT 33.6 % (38.0-50.0); HEMOGLOBIN 10.3 gm/dL (13.0-16.0); LYMPHOCYTE# 1.4 X10e3 (1.0-3.5); LYMPHOCYTE% 13.2 % (17.0-45.0); MEAN CELL VOLUME 82.3 FL (83-96); MEAN CORPUSCULAR HEMOGLOBIN 25.4 PG (28-34); MEAN CORPUSCULAR HGB CONC 30.8 g/dL (30-36); MEAN PLATELET VOLUME 7.5 FL (6.5-11.5); MONOCYTE# 0.9 X10e3 (0-1.0); MONOCYTE% 8.2 % (3.0-12.0); NEUTROPHIL# 8.5 X10e3 (1.5-7.1); PLATELET COUNT 165 X10e3 (140-420); RED BLOOD COUNT 4.08 X10e (3.90-5.60); WHITE BLOOD COUNT 10.8 X10e3 (4.0-10.5)
[2017-03-05 12:14] LABS: DIFF IND NO; PROTHROMBIN TIME (PATIENT) 10.7 SECONDS (10.0-11.7)
[2017-03-05 12:50] LABS: ALBUMIN SERUM 3.6 g/dL (3.5-5.0); BILIRUBIN, DIRECT 0.1 mg/dL (0.0-0.2); BILIRUBIN,INDIRECT 0.8 mg/dL (0.0-0.9); BILIRUBIN,TOTAL 0.9 mg/dL (0.2-2.0); BUN/CREATININE RATIO 13.75; CREATININE SERUM 0.8 mg/dL (0.6-1.4); GLOM FILT RATE Estimated 106.4 mL/min (>60); POTASSIUM 3.3 mmol/L (3.5-5.1); PROTEIN TOTAL SERUM 6.7 g/dL (6.0-8.3)
== END 2017-03-05 20:15 ==
LOC: CED 10:14
PROVIDERS: Emergency Medicine
DX: R45.851 Suicidal ideations (principal); F10.129 Alcohol abuse with intoxication, unspecified; J44.9 Chronic obstructive pulmonary disease, unspecified; F17.200 Nicotine dependence, unspecified, uncomplicated; Z79.899 Other long term (current) drug therapy; Z88.8 Allergy status to other drugs, medicaments and biological substances; Z91.018 Allergy to other foods
CPT/HCPCS: 36415; 80048; 80076; 82947; 85025; 85610; 94640; 96374; 99285; G0480; J1200

== ENCOUNTER 2017-03-05 17:25 | Inpatient (IN) | payer OTHER ==
--- NOTE | ~2017-03-05 | PN ---
Unit #: [id number] #: [id number] Patient: IVONE JUSTIN [id number] [facility] [address] [place] [address] [id number] I MR#: [id number] NAME: IVONE JUSTIN ROOM: [facility] Age: 46 Sex: M Admission Date: 03/05/2017 : 1970 Attending Physician: Anish Ramos M.D. Admitting Physician: Anish Ramos M.D. Primary Care Physician: Gabriele Valencia M.D. [facility] PROGRESS NOTES DATE 03/07/2017 DISCUSSION The patient's detox continues uneventfully. The patient is today informed to expect a.m. discharge. Dictated by... Anish Ramos M.D. CB/laila TD: 03/07/2017 22:04 JOB #: [id number] [facility] PROGRESS NOTES Page 1 of 1 X Anish Ramos MD X PROGRESS NOTE
--- NOTE | ~2017-03-05 | PA ---
Unit #: [id number] #: [id number] Patient: IVONE JUSTIN [id number] [facility] [address] [place] [address] [id number] MR#: [id number] NAME: IVONE JUSTIN ROOM: 81 Age: 46 Sex: M Admission Date: 03/05/2017 : 1970 Date of Assessment: 03/06/2017 Attending Physician: Anish Ramos M.D. Admitting Physician: Anish Ramos M.D. Primary Care Physician: Gabriele Valencia M.D. PSYCHIATRIC ASSESSMENT IDENTIFYING INFORMATION The patient is a 46-year-old white male admitted in transfer from [facility] where he had presented claiming to be suicidal. CHIEF COMPLAINT None given INFORMANT(S) Patient. RELIABILITY Poor. HISTORY OF PRESENT ILLNESS The patient is a 46-year-old white male well known to this physician for multiple previous admissions to this facility. He was last discharged on 02/13 and it is unclear where exactly he went following this discharge. Whatever the case he had gone to [facility] intoxicated and claiming to be suicidal with a plan to step into traffic or obtain a gun. When seen today the patient is denying suicidal ideation. He does admit that he has been using alcohol again but is somewhat unclear as to where he had gone following his last discharged from the hospital after arrangements had been made for the patient to go a alcohol treatment facility in [place], [place]. For a more complete history of present please refer to previous dictated notes. PAST PSYCHIATRIC HISTORY Reviewed, no changes. PAST MEDICAL HISTORY Reviewed, no changes. MEDICATION HISTORY 1. Proventil 2. DuoNeb 3. Vistaril 4. Motrin 5. Trazodone 6. Prozac 7. Requip 8. Protonix 9. Neurontin 10. Lasix Unit #: [id number] #: [id number] Patient: IVONE JUSTIN 11. Symbicort 12. Flomax ALLERGIES Remeron, Zofran, strawberries. FAMILY HISTORY Reviewed, no changes. SOCIAL HISTORY Reviewed, no changes. MENTAL STATUS EXAM At this time, reveals the patient to be an obese disheveled white male appearing his stated age. He is in no apparent physical distress at the time of examination. He is awake, alert, oriented in all spheres. His mood is mildly dysphoric. His affect congruent. Speech is generally relevant and coherent. There are no gross deficits in memory or cognition noted. Intelligence is judged to be in the average range based on fund of knowledge. The patient is generally cooperative during the interview. He is continuing to endorse positive suicidal ideation. He denies homicidal ideation. He denies any psychotic symptoms. His judgement and insight appear to be baseline. ASSETS AND LIABILITIES ASSETS: To be assessed. LIABILITIES: Lack of resources, sociopathy. ADMITTING DIAGNOSES 1. Alcohol use disorder. 2. Dysthymic disorder. 3. Antisocial personality disorder. 4. Benign prostatic hypertrophy. 5. Chronic obstructive pulmonary disease. 6. Hypertension. PSYCHIATRIC PLAN/TREATMENT GOALS The patient remains hospitalized for safety and stabilization. Suicidal precautions remain in place and a routine detoxification protocol for alcohol has been initiated. ESTIMATED LENGTH OF STAY Three to five days with follow up to take place through the auspices of community mental health resources. Dictated by... Anish Ramos M.D. KEARA/laila TD: 03/07/2017 03:45 JOB #: [id number] Unit #: [id number] #: [id number] Patient: IVONE JUSTIN PSYCHIATRIC ASSESSMENT Page 1 of 1 X Anish Ramos MD X PSYCHIATRIC ASSESSMENT
--- NOTE | ~2017-03-05 | HP ---
Unit #: [id number] #: [id number] Patient: TESSA JUSTIN [id number] [place] [address] [id number] MR#: [id number] NAME: TESSA JUSTIN ROOM: 81 Age: 46 Sex: M Admission Date: 03/05/2017 : 1970 Attending Physician: Anish Ramos M.D. Admitting Physician: Anish Ramos M.D. Primary Care Physician: Gabriele Valencia M.D. HISTORY AND PHYSICAL HISTORY OF PRESENT ILLNESS Tessa is a 46 year old admitted to [facility] because of his continued abuse of alcohol. He has had numerous admissions to this facility for the same. PAST MEDICAL HISTORY 1. Long history of alcohol abuse. 2. COPD. 3. Morbid obesity. 4. GERD. 5. History of withdrawal seizures. 6. High blood pressure. 7. BPH. 8. History of melanoma, anterior chest wall. PAST SURGICAL HISTORY Resection of a melanoma along his anterior chest wall. ALLERGIES Morphine, Risperdal, Remeron. SOCIAL HISTORY Continues to smokes 1 pack per day. Drinks alcohol on a daily basis and denies illicit drug use. FAMILY HISTORY Medically noncontributory. REVIEW OF SYSTEMS CONSTITUTIONAL: No fever or chills. HEENT: Denies any sore throat, ear pain or runny nose. CARDIOVASCULAR: Denies chest pain, irregular heart rhythm or palpitations. CHEST: Denies shortness of breath or cough. No hemoptysis. GASTROINTESTINAL: Denies nausea, vomiting, diarrhea or chronic constipation. ENDOCRINE: Denies history of increased thirst or urination. No recent significant weight loss or gain. GENITOURINARY: Denies dysuria, frequency, or hematuria. SKIN: Denies any rashes. HEMATOLOGIC: Denies history of increased bleeding or bruising. MUSCULOSKELETAL: Denies any hot, swollen joints. No generalized muscle pain. NEUROLOGIC: Denies problems with vision or speech. No frequent, severe Unit #: [id number] #: [id number] Patient: TESSA JUSTIN headaches. No numbness, tingling or weakness in any extremities. Denies loss of bladder or bowel control. CURRENT MEDICATIONS 1. Detox protocol. 2. Albuterol mini-nebs q.8 hours p.r.n. 3. Flomax 0.4 mg q day 4. Lasix 20 mg q day 5. Protonix 40 mg q day 6. Prozac 40 mg q day 7. Symbicort 2 puffs b.i.d. 8. Requip 0.25 mg q.h.s. 9. Ibuprofen p.r.n. 10. Combivent inhaler p.r.n. PHYSICAL EXAMINATION GENERAL: Alert, morbidly obese, no apparent distress. VITAL SIGNS: Blood pressure 130/82, heart rate 80, respirations 16, temperature 98.6. WEIGHT: 276. HEIGHT: 6 feet 4 inches. SKIN: Warm and dry without rash or lesion. HEENT: Normocephalic. TMs not viewed. Oral and nasal passages clear. Conjunctivae clear. PERRLA. EOMs intact. NECK: Supple without lymphadenopathy or thyromegaly. HEART: Regular rate and rhythm without murmur. LUNGS: Clear. ABDOMEN: Soft, nontender. : Not done. EXTREMITIES: No evidence of cyanosis, clubbing or edema. Moves all without focal deficit. NEUROLOGICAL: Grossly within normal limits. Cranial Nerves: II: Visual faulkner are intact. III, IV AND : Extraocular movements are intact. Pupils are equal, round and reactive to light. V: Facial sensation is grossly normal. VII: Facial movements and expression are normal. VIII: Auditory acuity grossly intact. IX, X: Uvula is midline. Phonation is normal. XI: Patient shrugs shoulders and turns head normally. XII: Tongue protrudes in the midline. Sensory and Motor Function: Sensory and motor sensation is grossly normal. Motor: moves all extremities well. Coordination: Gait is normal. Deep Tendon Reflexes: Intact. IMPRESSION Psychiatric admission. RECOMMENDATIONS PSYCHIATRIC: Per psychiatrist. MEDICAL: See no contraindications to participate in facility's activities. MEDICAL PROGNOSIS Good. MEDICAL CONDITION Stable. Unit #: [id number] #: [id number] Patient: TESSA JUSTIN Dictated by... Tonia Jason P.A.-C. for Kristy Serrano/laila TD: 03/07/2017 04:28 JOB #: [id number] HISTORY AND PHYSICAL Page 1 of 1 X Tonia Jason HISTORY AND PHYSICAL
--- NOTE | ~2017-03-05 | DS ---
Unit #: [id number] #: [id number] Patient: IVONE JUSTIN [id number] [place] [address] [id number] I MR#: [id number] NAME: IVONE JUSTIN ROOM: 81 Age: 46 Sex: M Admission Date: 03/05/2017 : 1970 Discharge Date: 03/08/2017 Attending Physician: Anish Ramos M.D. Primary Care Physician: Gabriele Valencia M.D. DISCHARGE SUMMARY REASON FOR ADMISSION The patient is a 46-year-old white male, well known to this facility from innumerable previous admissions. He was readmitted claiming to be suicidal and having once again relapsed on alcohol. HOSPITAL COURSE The patient was admitted to the [facility] unit and placed on suicide precautions. A routine detoxification protocol was ordered and the patient restarted on previously prescribed medications. Suicide precautions were ordered. The patient's stay in the hospital was a fairly typical one. His detox was uneventful and he denied suicidal ideation once hospitalized. By 03/08/2017, the patient's detox was complete and discharge was ordered. FINAL DIAGNOSES Alcohol use disorder, dysthymic disorder, antisocial personality disorder, chronic obstructive pulmonary disease, benign prostatic hypertrophy, chronic pain, and restless legs syndrome. DISPOSITION ON DISCHARGE The patient is discharged on the following medications; Proventil 3 mL q.8 hours p.r.n. shortness of air, Desyrel 300 mg at bedtime p.r.n. insomnia, Requip 0.25 mg at bedtime for restless legs syndrome, Neurontin 800 mg q.i.d. for pain, Symbicort 2 puffs b.i.d. p.r.n. shortness of air, Flomax 0.4 mg once daily for benign prostatic hypertrophy, Lasix 20 mg daily for hypertension, Protonix 40 mg daily for GERD, Prozac 40 mg daily for depression, Motrin 800 mg q.8 hours p.r.n. pain, Vistaril 50 mg q.6 hours p.r.n. anxiety, DuoNeb q.6 hours p.r.n. shortness of air, and Proventil HFA one puff q.4 hours p.r.n. shortness of air. DIET AND ACTIVITY No dietary or physical restrictions were placed on the patient at the time of discharge. FOLLOWUP Follow up will take place through the auspices of community mental health and chemical dependency treatment resources. PROGNOSIS The patient's prognosis remains guarded. Dictated by... Unit #: [id number] #: [id number] Patient: IVONE JUSTIN Anish Ramos M.D. CB/favian TD: 03/08/2017 18:50 JOB #: [id number] DISCHARGE SUMMARY Page 1 of 1 X Anish Ramos MD X DISCHARGE SUMMARY
== END 2017-03-08 14:30 | DRG 897 ==
LOC: P1E 20:40
PROC: HZ2ZZZZ Detoxification Services for Substance Abuse Treatment (ICD-10-PCS; principal; 2017-03-05)
DX: F10.10 Alcohol abuse, uncomplicated (principal); R45.851 Suicidal ideations; F34.1 Dysthymic disorder; F60.2 Antisocial personality disorder; N40.0 Benign prostatic hyperplasia without lower urinary tract symptoms; J44.9 Chronic obstructive pulmonary disease, unspecified; I10 Essential (primary) hypertension; Z88.8 Allergy status to other drugs, medicaments and biological substances; K21.9 Gastro-esophageal reflux disease without esophagitis; Z85.820 Personal history of malignant melanoma of skin; Z88.5 Allergy status to narcotic agent; Y90.7 Blood alcohol level of 200-239 mg/100 ml

== ENCOUNTER 2017-03-08 23:19 | Emergency (ER) | payer OTHER | END 2017-03-09 06:50 | disposition home or self-care (01) | LOC: CED 23:19 | DX: F10.129 Alcohol abuse with intoxication, unspecified (principal); S80.811A Abrasion, right lower leg, initial encounter; I11.0 Hypertensive heart disease with heart failure; I50.9 Heart failure, unspecified; Z87.442 Personal history of urinary calculi; F17.200 Nicotine dependence, unspecified, uncomplicated; Z88.8 Allergy status to other drugs, medicaments and biological substances; Z91.018 Allergy to other foods; Z79.899 Other long term (current) drug therapy; X58.XXXA Exposure to other specified factors, initial encounter | CPT/HCPCS: 99285 ==

== ENCOUNTER 2017-03-09 17:34 | Emergency (ER) | payer OTHER | END 2017-03-09 22:12 | disposition home or self-care (01) | LOC: CED 17:34 | DX: F10.129 Alcohol abuse with intoxication, unspecified (principal); F19.10 Other psychoactive substance abuse, uncomplicated; J44.9 Chronic obstructive pulmonary disease, unspecified; I10 Essential (primary) hypertension; F17.210 Nicotine dependence, cigarettes, uncomplicated; Z88.8 Allergy status to other drugs, medicaments and biological substances; Z79.899 Other long term (current) drug therapy | CPT/HCPCS: 94640; 99284; J1170 ==

== ENCOUNTER 2017-03-10 01:19 | Observation (INO) | payer OTHER ==
[~2017-03-10] VITALS: Ht 193 cm; Wt 120.8 kg
--- NOTE | ~2017-03-10 | DS ---
Unit #: [id number] #: [id number] Patient: IVONE JUSTIN [id number] [address] [place], [place] [address] [id number] I MR#: [id number] NAME: IVONE JUSTIN ROOM: 313 Age: 46 Sex: M Admission Date: 03/10/2017 : 1970 Discharge Date: 03/11/2017 Attending Physician: Helen Alarcon M.D. Primary Care Physician: Gabriele Valencia M.D. DISCHARGE SUMMARY PRIMARY CARE PROVIDER Gabriele Valencia M.D. PRINCIPAL DIAGNOSES 1. Acute alcohol intoxication. 2. Dizziness likely multifactorial. 3. Chronic alcohol abuse without evidence of withdrawal during hospitalization. 4. Questionable barbiturate recreational use. 5. Chronic obstructive pulmonary disease. 6. Alcohol-induced pancytopenia. 7. Tobaccoism. 8. History of paroxysmal atrial fibrillation, currently maintained in normal sinus rhythm. 9. History of deep vein thrombosis and pulmonary embolism. 10. Dysthymic disorder. 11. Antisocial personality disorder. 12. Benign prostatic hyperplasia. 13. Chronic pain syndrome. CONSULTANTS None. PROCEDURES CT of the head without contrast on 03/10/2017 with no acute findings. CLINIC HISTORY AND HOSPITAL COURSE Mr. Justin is a 46-year-old male, who presents to the emergency department complaining of dizziness. He was found to be acutely intoxicated in the emergency department. He states that he was unable to walk and thus was placed in observation for evaluation. The patient was seen today by physical therapy and was complaining of dizziness. Physical therapy knows his strength was quite normal and they were uncertain whether perhaps he was malingering giving he would "try to take everyone down while he was walking." I did not notice any nystagmus on examination. I am going to treat with meclizine on a p.r.n. basis. The patient was also placed on CIWA protocol, but he had no evidence of withdrawal during hospitalization. The patient today is otherwise medically stable. He does have some chronic pancytopenia, but these are his baseline levels. My plan is to Unit #: [id number] #: [id number] Patient: IVONE JUSTIN have an evaluation [facility]. The patient was not deemed appropriate, he can be discharged home. DISCHARGE CONDITION Stable. DISCHARGE STATUS Discharged to [facility] or home. DISCHARGE MEDICATIONS Meclizine 25 mg p.o. t.i.d. p.r.n. for dizziness, no prescriptions were given. Albuterol inhaler one puff every 4 hours p.r.n. for shortness of breath, Symbicort 160/4.5 mcg 1 puff b.i.d., Flomax 0.4 mg daily, gabapentin 800 mg p.o. q.i.d., Prozac 40 mg daily, Vistaril 50 mg p.o. q.6 hours p.r.n. for anxiety, daily multivitamin, pantoprazole 40 mg b.i.d. DISCHARGE INSTRUCTIONS The patient was instructed to follow heart-healthy diet. He should refrain from any further alcohol use on a slow tapering basis he should refrain from any further tobacco use. FOLLOWUP The patient will follow up with his primary care provider later this week. Dictated by... Helen Alarcon M.D. GUERO/favian TD: 03/14/2017 08:37 JOB #: [id number] DISCHARGE SUMMARY Page 1 of 1 X Helen Alarcon MD X DISCHARGE SUMMARY
--- NOTE | ~2017-03-10 | CO ---
Unit #: [id number] #: [id number] Patient: IVONE JUSTIN [id number] [facility] [address] [facility]. [place], [place] [address] [id number] I MR#: [id number] NAME: IVONE JUSTIN ROOM: 313 Age: 46 Sex: M Admission Date: 03/10/2017 : 1970 Attending Physician: Helen Alarcon M.D. Primary Care Physician: Gabriele Valencia M.D. Consultation Date: 03/10/2017 CONSULTATION REPORT JOB NOTE: VERIFY ADT REASON FOR CONSULTATION Alcohol abuse, alcohol withdrawal, depression, and psychosis. HISTORY OF PRESENT ILLNESS Mr. Rica Justin is a 46-year-old white male, seen in the emergency room at [facility]. The patient is tall, well built, recently lost lot of weight, was unsteady on his feet as somewhat anxious, flushed face. The patient was having gross tremors. The patient's urine drug screen was positive for barbiturates and benzos. Reported he has been drinking. The patient reported no suicidal or homicidal ideation. The patient denied any auditory hallucination, but reported visual hallucination, seeing stuff from the side of his eye. The patient currently denied any suicidal or homicidal ideation, but having hallucination. The patient was recently discharged from [facility] after he was suicidal, but at this time, he reports depression is under control. The patient reports that he continues to drink after discharge, feeling dizzy. Reported that he was seen last night but then having increasing problem with unsteadiness, dizziness. The patient was therefore admitted to [facility]. PAST PSYCHIATRIC HISTORY Remarkable for history of multiple admission at [facility] for suicidal ideation and for substance abuse, alcohol abuse and withdrawal. MEDICAL HISTORY Remarkable for history of encephalopathy, suicidal ideations, COPD, tobacco use, paroxysmal atrial fibrillation, anticoagulation, history of DVT, PE, GERD, chronic pain. ALLERGIES Zofran and mirtazapine. MEDICATION HISTORY The patient is on gabapentin, Lasix, Flomax, Vistaril, Prozac, Motrin, albuterol, pantoprazole, Mucinex, thiamine, prednisone, Dulera, Symbicort. REVIEW OF SYSTEMS Complete review of systems is unremarkable except the patient having gross tremors, flushed face, anxiety. Feeling anxious, nervous, dizzy sad depressed. MENTAL STATUS EXAMINATION Unit #: [id number] #: [id number] Patient: IVONE JUSTIN Vital signs; 98.4, 94, 18, 179/68. General appearance; the patient is tall, well built, dressed in hospital attire, somewhat anxious, restless, dizzy, gross tremors. Attention span and concentration, fair. Speech; poor articulation, rapid in rate. Oriented in time, place, and person. Mood and affect, labile. Thought process, circumstantial. Thought content, the patient denied any thoughts of harming self or others. Denied any auditory hallucination, but mentioned visual hallucination as mentioned above. Recent and remote memory, fair. Language, intact. Fund of knowledge, fair. Insight and judgment, fair to slightly impaired. DIAGNOSES Psychiatric: Alcohol use disorder, severe, F10.20. Alcohol withdrawal. Major depressive disorder, recurrent, severe, F33.2. Psychosis, not otherwise specified, F29.0. ASSESSMENT AND PLAN 1. Supportive psychotherapy and psychoeducation provided to the patient. 2. Educated about benefits and side effects of medication and course and prognosis of illness. 3. Advised to start with the CIWA protocol. Agreed with the plan to stabilize the patient medically and start with the CIWA protocol. If needed, consider medication such as low dose of Risperdal. Continue with Prozac. We will closely monitor for depressive symptoms, psychotic symptom, withdrawal symptoms from alcohol. If needed, make further adjustment of medication. Please feel free to call if any questions telephone #[phone]. Please feel free to call if any question. Dictated by... Kevin Gao M.D. CHYNA/favian TD: 03/13/2017 05:18 JOB #: [id number] CONSULTATION REPORT Page 1 of 1 X Kevin Gao MD X CONSULTATION REPORT
--- NOTE | ~2017-03-10 | DS ---
Unit #: [id number] #: [id number] Patient: IVONE JUSTIN [id number] [address] [address] [id number] I MR#: [id number] NAME: IVONE JUSTIN ROOM: 313 Age: 46 Sex: M Admission Date: 03/10/2017 : 1970 Discharge Date: 03/11/2017 Attending Physician: Helen Alarcon M.D. Primary Care Physician: Gabriele Valencia M.D. DISCHARGE SUMMARY ADDENDUM DISCHARGE DIAGNOSIS Probable urinary tract infection. DISCHARGE MEDICATIONS Omnicef 300 mg p.o. b.i.d. for 7 days. Dictated by... Kristy Samuel/favian TD: 03/13/2017 23:43 JOB #: [id number] DISCHARGE SUMMARY Page 1 of 1 X Helen Alarcon MD X DISCHARGE SUMMARY
--- NOTE | ~2017-03-10 | EKG ---
PATIENT: IVONE JUSTIN UNIT #: [id number] Ventricular Rate: 79 BPM Atrial Rate: 79 BPM P-R Interval: 160 ms QRS Duration: 96 ms Q-T Interval: 394 ms QTC Calculation(Bezet): 451 ms P [place]: 51 degrees Calculated R [place]: -12 degrees Calculated T [place]: 50 degrees Diagnosis Line: Normal sinus rhythm Diagnosis Line: Normal ECG Diagnosis Line: Diagnosis Line: Confirmed by NIRALI LIANG MD ([id number]) on Diagnosis Line: 03/10/2017 2:03:43 PM INTERPRETING MD: GARTH CARRANZA
--- NOTE | ~2017-03-10 | HP ---
Unit #: [id number] #: [id number] Patient: IVONE JUSTIN [id number] [address] [place], [place] [address] [id number] MR#: [id number] NAME: IVNOE JUSTIN ROOM: Age: 46 Sex: M Admission Date: 03/10/2017 : 1970 Attending Physician: Sarwat Villafuerte M.D. Primary Care Physician: Gabriele Valencia M.D. HISTORY AND PHYSICAL CHIEF COMPLAINT Alcohol abuse. HISTORY OF PRESENT ILLNESS The patient is a 46-year-old male with a past medical history of COPD with continued tobacco use, paroxysmal atrial fibrillation, DVT, PE, GERD, chronic pain, alcohol abuse, brought to the emergency room for alcohol abuse. The patient was recently discharged from [facility] after the suicidal ideation. The patient stated that patient continues to drink alcohol. The patient also complains of dizziness associated with alcohol and is not able to stand up and walk independently. The patient has been in the emergency room for the last 14 hours and is still unable to walk and is being admitted for the above reasons. PAST MEDICAL HISTORY History of encephalopathy and suicidal ideation, COPD with continued tobacco use, paroxysmal atrial fibrillation not on chronic anticoagulation, history of DVT, PE, GERD, chronic pain, alcohol abuse. PAST SURGICAL HISTORY Testicular surgery, excision of a cyst left neck, left upper extremity ORIF, excisional biopsy of the anterior chest wall. SOCIAL HISTORY The patient is a daily drinker. He stated that he drinks a liter of vodka daily, the last drink being last night. He continues to smoke. There is no illicit drug abuse. He is currently living in a residential. FAMILY HISTORY Notable for congestive heart failure. ALLERGIES Zofran and mirtazapine. HOME MEDICATIONS He is on: 1. Gabapentin. 2. Lasix. 3. Flomax. 4. Vistaril. 5. Prozac. 6. Motrin. 7. Albuterol. 8. Pantoprazole. Unit #: [id number] #: [id number] Patient: IVONE JUSTIN 9. Mucinex. 10. Thiamine. 11. Prednisone. 12. Dulera. 13. Symbicort. REVIEW OF SYMPTOMS A 14-point review of symptoms performed and only pertinent positive findings are described above; remaining are negative. PHYSICAL EXAMINATION GENERAL APPEARANCE: The patient is lying on a bed, not in acute distress. VITAL SIGNS: Temperature 98.4. Pulse 94. Respiratory rate 18. Blood pressure 179/67. Sating 92% at room air. HEENT: Head: Atraumatic, normocephalic. ENT: Pupils equal, round, reacting to light and accommodation. Extraocular movements are intact. LUNGS: Decreased air entry at the bases. HEART: Regular rate and rhythm. ABDOMEN: Soft. Positive bowel sounds. EXTREMITIES: No cyanosis. No clubbing. NEUROLOGIC: The patient is alert, awake, oriented and is somewhat tremulous. PSYCHIATRIC: The patient is cooperative and somewhat anxious. DIAGNOSTIC STUDIES LABORATORY: Urine drug is positive for the benzodiazepines, barbiturates and TCA. UA shows 2+ leukocyte esterase, positive nitrites and 10 to 25 urine WBCS. Sodium 136, potassium 4.9, chloride 101, bicarb 31, glucose 79, BUN 12, creatinine 0.7, AST 45, ALT 32, albumin 3.4. Troponin less than 0.05. WBC 3.7, hemoglobin 9.2, hematocrit 29.7, platelets 118. ASSESSMENT 1. Alcohol intoxication. 2. Dizziness. 3. Anemia. PLAN To admit the patient to observation with telemetry. The patient will be started on CIWA protocol and replace the electrolytes and the patient will be seen by Physical Therapy. EKG shows normal sinus rhythm and repeat the labs again in the morning and further recommendations will follow. Dictated by Kristy Reyes/kd TD: 03/10/2017 17:39 JOB #: [id number] Unit #: [id number] #: [id number] Patient: IVONE JUSTIN HISTORY AND PHYSICAL Page 1 of 1 X PANTERA SIDDIQI MD X HISTORY AND PHYSICAL
--- NOTE | ~2017-03-10 | CT71 ---
[facility] A Service [facility] RADIOLOGY TEXT RESULTS PATIENT: IVONE JUSTIN LOCATION: C3A PC 313- : [birth year] UNIT #: [id number] AGE: [address]: Helen Alarcon MD SEX: M ORDER DR: [id number] [facility] [address] [facility]. [place], [place] [address] [id number] I MR#: [id number] Acc #: [id number] NAME: IVONE JUSTIN : 1970 SEX: M STUDY DATE/TIME: 03/10/2017 15:31 UNIT: C3A PCU ROOM: [facility] STUDY DESCRIPTION: CT Head Wo Contrast Attending Physician: Lavinia Craig M.D. Ordering Physician: Christo Gold Primary Care Physician: Gabriele Valencia M.D. MEDICAL IMAGING REPORT This report is preliminary unless electronic signature is present EXAM CT head INDICATIONS Syncope. Dizziness. Tremors. TECHNIQUE CT of the head without contrast. COMPARISON CT head 10/07/2016. TECHNIQUE This CT exam was performed with one or more of the following radiation dose reduction techniques: automatic control, adjustment of mA and/or kV according to patient size, and iterative reconstruction. FINDINGS Axial images were obtained after administration of intravenous contrast. The brain and surrounding extraaxial structures have a normal appearance. There is no evidence of mass effect, hemorrhage, or edema. No abnormal enhancement is seen. Ventricular size is normal. There is a sebaceous cyst in the posterior occipital scalp measuring up to 2.[address] of the brain. Dictated by... Lawson Lerma M.D. THIS IS AN ELECTRONICALLY VERIFIED REPORT Lawson Lerma M.D. at 03/11/2017 5:[address] [facility] A Service [facility] RADIOLOGY TEXT RESULTS PATIENT: IVONE JUSTIN LOCATION: C3A 313- : [birth year] UNIT #: [id number] AGE: [address]: Helen Alarcon MD SEX: M ORDER DR: SUJATHA/lan TD: 03/10/2017 22:03 JOB #: [id number] MEDICAL IMAGING REPORT Page 1 of 1 COPY
[2017-03-10 14:57] LABS: BASOPHIL% 0.1 % (0-2.5); DIFF IND NO; EOSINOPHIL% 0.1 % (0.0-7.0); HEMATOCRIT 29.7 % (38.0-50.0); HEMOGLOBIN 9.2 gm/dL (13.0-16.0); LYMPHOCYTE# 1.1 X10e3 (1.0-3.5); LYMPHOCYTE% 28.3 % (17.0-45.0); MEAN CELL VOLUME 81.3 FL (83-96); MEAN CORPUSCULAR HEMOGLOBIN 25.2 PG (28-34); MEAN PLATELET VOLUME 7.9 FL (6.5-11.5); MONOCYTE# 0.5 X10e3 (0-1.0); NEUTROPHIL# 2.2 X10e3 (1.5-7.1); NEUTROPHIL% 58.5 % (40-75); PLATELET COUNT 118 X10e3 (140-420); RED BLOOD COUNT 3.65 X10e (3.90-5.60); RED CELL DISTRIBUTION WIDTH 21.9 % (11.0-15.5); WHITE BLOOD COUNT 3.7 X10e3 (4.0-10.5)
[2017-03-10 15:00] LABS: POC - CKMB 2.8 ng/mL (0.0-7.9); POC - TROPONIN <0.05 ng/mL (<=0.05)
[2017-03-10 15:15] LABS: ALBUMIN SERUM 3.4 g/dL (3.5-5.0); BILIRUBIN, DIRECT 0.2 mg/dL (0.0-0.2); BILIRUBIN,INDIRECT 0.5 mg/dL (0.0-0.9); BILIRUBIN,TOTAL 0.7 mg/dL (0.2-2.0); BUN/CREATININE RATIO 17.14; CALCIUM SERUM 9.1 mg/dL (8.4-10.2); CREATININE SERUM 0.7 mg/dL (0.6-1.4); GLOM FILT RATE Estimated 112.4 mL/min (>60); POTASSIUM 4.9 mmol/L (3.5-5.1); PROTEIN TOTAL SERUM 6.6 g/dL (6.0-8.3)
[2017-03-10 15:57] LABS: URINE SOURCE CLEAN CATCH
[2017-03-10 16:02] LABS: URINE APPEARANCE CLEAR; URINE BILIRUBIN NEG (NEG); URINE BLOOD NEG (NEG); URINE COLOR YELLOW; URINE GLUCOSE NEG (NEG); URINE KETONE NEG (NEG); URINE LEUKOCYTE ESTERASE 2+ (NEG); URINE NITRATE POS (NEG); URINE PROTEIN NEG (NEG); URINE SPECIFIC GRAVITY 1.008 (1.003-1.035); URINE UROBILINOGEN 0.2 MG/DL (NEG)
[2017-03-10 16:04] LABS: CULTURE INDICATED? YES; URBCS1 AUWI 0-2 /[HPF] (0-2); URINE BACTERIA AUWI NEG (NEGATIVE); URINE SQUAMOUS EPITHELIAL CELL NONE SEEN /[HPF]
[2017-03-10 16:11] LABS: AMPHETAMINE NEG (NEG); BARBITURATES POS (NEG); BENZODIAZEPINES POS (NEG); COCAINE NEG (NEG); MARIJUANA NEG (NEG); OPIATES NEG (NEG); TRICYCLIC ANTIDEPRESSANTS POS (NEG); U METHADONE NEG (NEG)
[2017-03-11] MEDS ORDERED: MOTION SICKNESS25 M4 PO (15:33)
[2017-03-11] MEDS ORDERED: OMNICEF300 MG PO (15:33)
== END 2017-03-11 18:19 | disposition home or self-care (01) ==
LOC: CED 01:19 → CEDOF 17:18 → C3A PCU 19:00
PROVIDERS: Emergency Medicine
DX: F10.129 Alcohol abuse with intoxication, unspecified (principal); R42 Dizziness and giddiness; F10.188 Alcohol abuse with other alcohol-induced disorder; D61.818 Other pancytopenia; F33.2 Major depressive disorder, recurrent severe without psychotic features; F29 Unspecified psychosis not due to a substance or known physiological condition; D64.9 Anemia, unspecified; J44.9 Chronic obstructive pulmonary disease, unspecified; F60.2 Antisocial personality disorder; F34.1 Dysthymic disorder; N40.0 Benign prostatic hyperplasia without lower urinary tract symptoms; Z86.711 Personal history of pulmonary embolism; Z86.718 Personal history of other venous thrombosis and embolism; F17.200 Nicotine dependence, unspecified, uncomplicated
CPT/HCPCS: 36415; 70450; 80048; 80076; 80307; 81003; 82553; 84484; 85025; 87086; 93005; 94640; 94664; 96360; 96361; 96365; 96366; 97162; 99285; G0378; G8978-GP; G8979-GP; G8980-GP; J1650; J3411; J3475; J7042

== ENCOUNTER 2017-03-16 04:00 | Inpatient (IN) | payer OTHER ==
[~2017-03-16] VITALS: Ht 193 cm; Wt 125.2 kg
--- NOTE | ~2017-03-16 | HP ---
Unit #: [id number] #: [id number] Patient: TESSA JUSTIN [id number] [facility] [address] [place] [address] [id number] MR#: [id number] NAME: TESSA JUSTIN ROOM: 85 Age: 46 Sex: M Admission Date: 03/16/2017 : 1970 Attending Physician: Anish Ramos M.D. Admitting Physician: Anish Ramos M.D. Primary Care Physician: Michelle Suarez M.D. HISTORY AND PHYSICAL Tessa is a 46-year-old male admitted on 03/16/2017 for detox from alcohol. He is well known to this facility and has multiple previous admissions for the same. Recently he was admitted on 03/05/2017. I have reviewed the history and physical from that admission and there are no changes. Dictated by... Doug Dean/laila TD: 03/19/2017 04:12 JOB #: [id number] HISTORY AND PHYSICAL Page 1 of 1 X KAVEH DELA CRUZ APRN HISTORY AND PHYSICAL
--- NOTE | ~2017-03-16 | PN ---
Unit #: [id number] #: [id number] Patient: IVONE JUSTIN [id number] [facility] [address] [place] [address] [id number] Shelia MR#: [id number] NAME: IVONE JUSTIN ROOM: [facility] Age: 46 Sex: M Admission Date: 03/16/2017 : 1970 Attending Physician: Anish Ramos M.D. Admitting Physician: Anish Ramos M.D. Primary Care Physician: Kristy Bhatt PROGRESS NOTES DATE 03/17/2017 DISCUSSION The patient has had CIWA scores as high as 12 in the past 12 hours indicating some alcohol detox symptoms. He is presently exhibiting little in the way of signs or symptoms of withdrawal. I have firmly redirected this patient's expectations of inpatient care, and I have let him know that once he has gone 24 hours without requiring lorazepam, discharge will be ordered. He states that he has been accepted to [facility] sometime next week. Dictated by... Anish Ramos M.D. CB/cleo TD: 03/17/2017 14:43 JOB #: [id number] [facility] PROGRESS NOTES Page 1 of 1 X Anish Ramos MD X PROGRESS NOTE
--- NOTE | ~2017-03-16 | PA ---
Unit #: [id number] #: [id number] Patient: IVONE JUSTIN [id number] [facility] [address] [place] [address] [id number] I MR#: [id number] NAME: IVONE JUSTIN ROOM: [facility] Age: 46 Sex: M Admission Date: 03/16/2017 : 1970 Date of Assessment: 03/16/2017 Attending Physician: Anish Ramos M.D. Admitting Physician: Anish Ramos M.D. Primary Care Physician: Michelle Suarez M.D. PSYCHIATRIC ASSESSMENT IDENTIFYING INFORMATION The patient is a 46-year-old white male admitted yet again to the [address] [place] [address] with recurrence of alcohol use. INFORMANT(S) Patient. RELIABILITY Fair. CHIEF COMPLAINT "I got around some of my cousins." HISTORY OF PRESENT ILLNESS The patient is a 46-year-old white male admitted to [address] [place] [address] after he had presented to [facility] claiming to be suicidal with plan to jump from the bridge. The patient's blood alcohol was .027. At that time, the patient did have a CIWA score of 13. His pulse was 91. His blood pressure 155/74. The patient reports no suicidal ideation to this physician when seen today. The patient reports that he attended a family gathering where alcohol was consumed and he found himself unable to resist the temptation of drink. He is currently reporting a wish to go for residential chemical dependence treatment. For a more complete history of present illness, please refer to previous dictated notes. PAST PSYCHIATRIC HISTORY Reviewed, no changes. FAMILY HISTORY/SOCIAL HISTORY Reviewed, no changes. MEDICAL HISTORY Reviewed, no changes. MEDICATION HISTORY 1. Proventil. 2. Trazodone. 3. Requip. 4. Neurontin. 5. Symbicort. 6. Flomax. 7. Lasix. 8. Protonix. Unit #: [id number] #: [id number] Patient: IVONE JUSTIN 9. Prozac. 10. Motrin. 11. Vistaril. 12. DuoNeb. ALLERGIES Zofran, Remeron, strawberries. MENTAL STATUS EXAM At this time, reveals the patient to be an obese, largely statured white male appearing his stated age. He is in no apparent physical distress at the time of examination. He is awake, alert, oriented in all spheres. His mood is euthymic. His affect congruent. Speech is generally relevant and coherent. There are no gross deficits in memory or cognition noted. Intelligence is judged to be in the average range based on fund of knowledge. The patient is cooperative throughout the interview. He is currently denying suicidal/homicidal ideation or psychotic features. Judgement and insight appear to be intact. ASSETS AND LIABILITIES Patient's assets to be assessed. Liabilities, ongoing sociopathy. ADMITTING DIAGNOSES 1. Alcohol use disorder. 2. Antisocial personality disorder. 3. Benign prostatic hypertrophy. 4. Chronic obstructive pulmonary disease. 5. Gastroesophageal reflux disease. 6. Chronic pain. PSYCHIATRIC PLAN/TREATMENT GOALS The patient remains hospitalized for safety and stabilization. We will watch for any signs or symptoms of withdrawal. If none develop, I will plan to discharge the patient as early as tomorrow as his suicidal threats were clearly aimed at gaining admission to the hospital and were not in any way truthful in their meaning. ESTIMATED LENGTH OF STAY Two to three days. Dictated by... Anish Ramos M.D. KEARA/dung TD: 03/16/2017 18:46 JOB #: [id number] Unit #: [id number] #: [id number] Patient: IVONE JUSTIN PSYCHIATRIC ASSESSMENT Page 1 of 1 X Anish Ramos MD X PSYCHIATRIC ASSESSMENT
--- NOTE | ~2017-03-16 | DS ---
Unit #: [id number] #: [id number] Patient: IVONE JUSTIN [id number] [facility] [address] [place] [address] [id number] I MR#: [id number] NAME: IVONE JUSTIN ROOM: [facility] Age: 46 Sex: M Admission Date: 03/16/2017 : 1970 Discharge Date: 03/18/2017 Attending Physician: Anish Ramos M.D. Primary Care Physician: Michelle Suarez M.D. DISCHARGE SUMMARY REASON FOR ADMISSION The patient is a 46-year-old white male, admitted yet again to the [facility] unit after presenting to a local facility claiming to be suicidal and in a state of intoxication. HOSPITAL COURSE The patient was admitted to the [facility] unit and placed on routine detoxification protocol for alcohol. His home medications were continued. The patient's stay in the hospital was a fairly uneventful one; however on the afternoon of 03/18/2017, staff reported that the patient had been referring to this physician and staff and unkind on profane terms claiming that "we never do anything to help him" statements and still laughable on his face that this physician taking it back. Whatever the case, the patient was firmly confronted regarding this and discharge ordered. At that time, he denied suicidal ideation and exhibited. No signs of alcohol withdrawal. His most recent CIWA score having 3. FINAL DIAGNOSES Alcohol use disorder; antisocial personality disorder; chronic obstructive pulmonary disease; benign prostatic hypertrophy, DISPOSITION ON DISCHARGE The patient is discharged on the following medications: Proventil q.8 hours p.r.n. shortness of air, Desyrel 300 mg at h.s. p.r.n. insomnia, Requip 0.25 mg at bedtime for restless legs syndrome, Neurontin 800 mg q.i.d. for chronic pain, Flomax 0.4 mg once daily for benign prostatic hypertrophy, Lasix 20 mg once daily for hypertension, Protonix 40 mg daily for GERD, Prozac 40 mg daily for depression, Motrin 800 mg q.8 hours p.r.n. pain, Vistaril 50 mg q.6 hours p.r.n. anxiety, DuoNeb 3 mg q.6 hours p.r.n. shortness of air, Proventil HFA 2 puffs q.4 hours p.r.n. shortness of air, and Symbicort 2 puffs b.i.d. for shortness of air. DISCHARGE INSTRUCTIONS No dietary or physical restrictions were placed upon the patient at the time of discharge. FOLLOWUP Followup will take place through the auspices of community mental health resources. PROGNOSIS The patient's prognosis unfortunately remains quite poor given lack of investment in treatment, in maintenance of sobriety and sociopathy. Unit #: [id number] #: [id number] Patient: IVONE JUSTIN Dictated by... Anish Ramos M.D. CB/favian TD: 03/18/2017 13:45 JOB #: [id number] DISCHARGE SUMMARY Page 1 of 1 X Anish Ramos MD X DISCHARGE SUMMARY
[~2017-03-16 04:00] MED LIST changes: +MOTION SICKNESS25 M4 PO; +OMNICEF300 MG PO
== END 2017-03-18 13:40 | disposition home or self-care (01) | DRG 897 ==
LOC: P1E 09:21
DX: F10.20 Alcohol dependence, uncomplicated (principal); I10 Essential (primary) hypertension; F60.2 Antisocial personality disorder; N40.0 Benign prostatic hyperplasia without lower urinary tract symptoms; J44.9 Chronic obstructive pulmonary disease, unspecified; K21.9 Gastro-esophageal reflux disease without esophagitis; G89.29 Other chronic pain; F41.9 Anxiety disorder, unspecified; G25.81 Restless legs syndrome; F32.9 Major depressive disorder, single episode, unspecified

== ENCOUNTER 2017-03-21 21:43 | Emergency (ER) | payer OTHER ==
[~2017-03-21] VITALS: Ht 182.9 cm; Wt 125.2 kg
--- NOTE | ~2017-03-21 | CR72 ---
[facility] A Service of [facility] & [facility] RADIOLOGY TEXT RESULTS PATIENT: IVONE JUSTIN LOCATION: [facility] : 68 UNIT #: [id number] AGE: [address]: Vlad Moya MD SEX: M ORDER DR: [id number] [facility] [address] [place], [place] [address] [id number] E MR#: [id number] Acc #: [id number] NAME: IVONE JUSTIN : 1970 SEX: M STUDY DATE/TIME: 03/21/2017 22:05 UNIT: [facility] ROOM: STUDY DESCRIPTION: CR Chest Single View Portable Attending Physician: Odilon Sherman D.O. Ordering Physician: Odilon Sherman D.O. Primary Care Physician: Michelle Suarez M.D. MEDICAL IMAGING REPORT This report is preliminary unless electronic signature is present EXAM Portable chest, 03/21/2017 HISTORY Shortness of breath and dizziness beginning today. Benign essential hypertension and COPD. FINDINGS The heart is enlarged but stable compared with 03/15/2017. The lungs are clear. There are no pleural effusions. IMPRESSION Cardiomegaly. No active pulmonary disease. Dictated by... Dev Reyes M.D. THIS IS AN ELECTRONICALLY VERIFIED REPORT Dev Reyes M.D. at 03/22/2017 2:10 PM MICKEY/ousmane TD: 03/22/2017 04:05 JOB #: [id number] MEDICAL IMAGING REPORT Page 1 of 1 COPY
== END 2017-03-22 10:47 | disposition home or self-care (01) ==
LOC: CED 21:43
DX: J44.1 Chronic obstructive pulmonary disease with (acute) exacerbation (principal); F10.10 Alcohol abuse, uncomplicated; F17.200 Nicotine dependence, unspecified, uncomplicated; Z88.8 Allergy status to other drugs, medicaments and biological substances
CPT/HCPCS: 36415; 71010; 94640; 99285

== ENCOUNTER 2017-03-27 14:20 | Emergency (ER) | payer OTHER ==
[~2017-03-27] VITALS: Ht 195.6 cm; Wt 122.5 kg
--- NOTE | ~2017-03-27 | CT52 ---
[facility] A Service of [facility] RADIOLOGY TEXT RESULTS PATIENT: IVONE JUSTIN LOCATION: [facility] : 68 UNIT #: [id number] AGE: [address]: Veronica Atwood MD SEX: M ORDER DR: [id number] [facility] [address] [place], [place] [address] [id number] E MR#: [id number] Acc #: [id number] NAME: IVONE JUSTIN : 1970 SEX: M STUDY DATE/TIME: 03/27/2017 17:07 UNIT: [facility] ROOM: STUDY DESCRIPTION: CT Cervical Spine Wo Cont Attending Physician: Veronica Atwood M.D. Referring Physician: Michelle Suarez M.D. Ordering Physician: Veronica Atwood M.D. Primary Care Physician: Michelle Suarez M.D. MEDICAL IMAGING REPORT This report is preliminary unless electronic signature is present EXAM CT cervical spine without contrast HISTORY Neck pain after fall today. TECHNIQUE CT cervical spine was performed without contrast. This CT exam was performed with one or more of the following radiation dose reduction techniques: automatic exposure control, adjustment of mA and/or kV according to patient size, and iterative reconstruction. FINDINGS The exam sensitivity is limited by patient motion, despite scan repetition. 2 cm sebaceous cyst in the right posterior suboccipital superficial soft tissues. Advanced multilevel degenerative and hypertrophic changes with large anterior marginal osteophytes from C4 to C6 and moderately advanced degenerative facet arthropathy in the upper and lower cervical spine bilaterally. No fracture or subluxation is identified, although sensitivity is limited. There is at least mild multilevel bony outlet foraminal narrowing from C3-C4 to C6-C7. IMPRESSION 1. Exam sensitivity is limited by motion, despite scan repetition. No definite fracture is identified. 2. Advanced multilevel degenerative and hypertrophic changes with at least mild bilateral outlet foraminal narrowing secondary to bony hypertrophic spurring from C3-C4 to C6-C7. Dictated by... [facility] A Service of [facility] RADIOLOGY TEXT RESULTS PATIENT: IVONE JUSTIN LOCATION: [facility] : 68 UNIT #: [id number] AGE: [address]: Veronica Atwood MD SEX: M ORDER DR: Dhaval Sher M.D. THIS IS AN ELECTRONICALLY VERIFIED REPORT Dhaval Sher M.D. at 03/28/2017 3:14 PM DFL/pcl TD: 03/27/2017 19:42 JOB #: [id number] MEDICAL IMAGING REPORT Page 1 of 1 COPY
--- NOTE | ~2017-03-27 | CR169 ---
[facility] A Service of [facility] & [facility] RADIOLOGY TEXT RESULTS PATIENT: IVONE JUSTIN LOCATION: [facility] : 68 UNIT #: [id number] AGE: [address]: Veronica Atwood MD SEX: M ORDER DR: [id number] [facility] [address] [place], [place] [address] [id number] E MR#: [id number] Acc #: [id number] NAME: IVONE JUSTIN : 1970 SEX: M STUDY DATE/TIME: 03/27/2017 17:24 UNIT: [facility] ROOM: STUDY DESCRIPTION: CR Knee 2 Views Lt Attending Physician: Veronica Atwood M.D. Referring Physician: Michelle Suarez M.D. Ordering Physician: Veronica Atwood M.D. Primary Care Physician: Michelle Suarez M.D. MEDICAL IMAGING REPORT This report is preliminary unless electronic signature is present EXAM Left knee series 03/27/2017 HISTORY Trauma. EtOH. Patient fell today. Knees bleeding with scrapes, large. Knot on right medial side. TECHNIQUE AP and lateral radiographs of the left knee are presented. FINDINGS There is no acute fracture and no indication of traumatic malalignment. There is an old healed fracture proximal left fibular shaft. Mild narrowing lateral and patellofemoral joint space compartments. Gkym-ba-ausjzjoi narrowing medial joint space compartment. No traumatic soft tissue abnormality. No joint effusion. Dictated by... Kirby Allan M.D. THIS IS AN ELECTRONICALLY VERIFIED REPORT Kirby Allan M.D. at 03/27/2017 11:32 PM NIKIA/kayden TD: 03/27/2017 19:45 JOB #: [id number] MEDICAL IMAGING REPORT Page 1 of 1 COPY
--- NOTE | ~2017-03-27 | CT71 ---
[facility] A Service of [facility] & [facility] RADIOLOGY TEXT RESULTS PATIENT: IVONE JUSTIN LOCATION: [facility] : 68 UNIT #: [id number] AGE: [address]: Veronica Atwood MD SEX: M ORDER DR: [id number] [facility] [address] [place], [place] [address] [id number] E MR#: [id number] [facility] #: [id number] NAME: IVONE JUSTIN : 1970 SEX: M STUDY DATE/TIME: 03/27/2017 17:07 UNIT: [facility] ROOM: STUDY DESCRIPTION: CT Head Wo Contrast Attending Physician: Veronica Atwood M.D. Referring Physician: Michelle Suarez M.D. Ordering Physician: Veronica Atwood M.D. Primary Care Physician: Michelle Suarez M.D. MEDICAL IMAGING REPORT This report is preliminary unless electronic signature is present EXAM CT head, 03/27/2017 HISTORY Fall in waiting room. EtOH abuse, neck tenderness. TECHNIQUE CT head performed skull base through vertex without intravenous contrast. Some images repeated due to motion artifact. Study motion degraded despite repetition. This CT exam was performed with one or more of the following radiation dose reduction techniques: automatic exposure control, adjustment of mA and/or kV according to patient size, and iterative reconstruction. COMPARISON 03/10/2017 FINDINGS Brainstem unremarkable. Cerebellum and cerebral hemispheres show overall preservation maldonado matter - white matter differentiation. No hemorrhage. No evidence of acute cortical ischemia. Midline structures nondisplaced. The basal ganglia are intact. Ventricles, cisterns and sulci show mild generalized enlargement consistent with mild generalized atrophy. No intra or extraaxial mass effect. There are cavernous carotid arterial calcifications. The intraorbital soft tissues are unremarkable. Subcutaneous probable inclusion cyst posterior paracentral suboccipital scalp/upper neck on the right. It measures 2.1 cm in diameter and is unchanged. The bony structures show no acute appearing abnormality. Visualized paranasal sinuses and mastoid air cells show no evidence of acute disease. IMPRESSION 1. Study degraded by motion artifact despite repetition. No gross acute [facility] A Service of [facility] & [facility] RADIOLOGY TEXT RESULTS PATIENT: IVONE JUSTIN LOCATION: [facility] : 68 UNIT #: [id number] AGE: [address]: Veronica Atwood MD SEX: M ORDER DR: abnormality is seen in the brain. There is no change in appearance compared to 03/10/2017. Chronic changes include: Mild generalized atrophy, vascular calcifications, probable 2.1 cm inclusion cyst right paracentral posterior superior neck. Given the limitations of the examination, if the patient has ongoing neurologic symptoms, follow up imaging would be recommended. 2. No fracture. Dictated by... Kirby Allan M.D. THIS IS AN ELECTRONICALLY VERIFIED REPORT Kirby Allan M.D. at 03/27/2017 11:32 PM NIKIA/wai TD: 03/27/2017 20:00 JOB #: [id number] MEDICAL IMAGING REPORT Page 1 of 1 COPY
--- NOTE | ~2017-03-27 | CR170 ---
[facility] A Service of [facility] RADIOLOGY TEXT RESULTS PATIENT: IVONE JUSTIN LOCATION: [facility] : 68 UNIT #: [id number] AGE: [address]: Veronica Atwood MD SEX: M ORDER DR: [id number] [facility] [address] [place], [place] [address] [id number] E MR#: [id number] Acc #: [id number] NAME: IVONE JUSTIN : 1970 SEX: M STUDY DATE/TIME: 03/27/2017 17:25 UNIT: [facility] ROOM: STUDY DESCRIPTION: CR Knee 2 Views Rt Attending Physician: Veronica Atwood M.D. Referring Physician: Michelle Suarez M.D. Ordering Physician: Veronica Atwood M.D. Primary Care Physician: Michelle Suarez M.D. MEDICAL IMAGING REPORT This report is preliminary unless electronic signature is present EXAM Right knee series 03/27/2017 HISTORY Fell. Knee bleeding with scrapes and large knot on medial right knee. Happened today. TECHNIQUE AP and lateral radiographs of the right knee presented. COMPARISON STUDIES 07/13/2009. FINDINGS No traumatic fracture or malalignment. On the AP radiograph, there is some subtle lateral subluxation of tibia relative to femur and this is presumed secondary to degenerative change. Klmmxwqn-lc-gdimby narrowing of all 3 joint space compartments. This has significantly progressed in the interval from 2008. There is no fracture. There is a chronic soft tissue calcification along the medial aspect of the distal femur, unchanged. There is a uhijj-xm-xomougcm effusion in the suprapatellar recess. There is no soft tissue defect, subcutaneous air or radiodense foreign body. There is evidence of atherosclerotic arterial calcifications. Dictated by... Kirby Allan M.D. THIS IS AN ELECTRONICALLY VERIFIED REPORT Kirby Allan M.D. at 03/27/2017 11:32 PM JSK/pcl [facility] A Service of [facility] RADIOLOGY TEXT RESULTS PATIENT: IVONE JUSTIN LOCATION: [facility] : 68 UNIT #: [id number] AGE: [address]: Veronica Atwood MD SEX: M ORDER DR: TD: 03/27/2017 19:43 JOB #: [id number] MEDICAL IMAGING REPORT Page 1 of 1 COPY
== END 2017-03-27 22:22 | disposition home or self-care (01) ==
LOC: CED 14:20
DX: F10.129 Alcohol abuse with intoxication, unspecified (principal); J44.9 Chronic obstructive pulmonary disease, unspecified; Z86.711 Personal history of pulmonary embolism; Z86.718 Personal history of other venous thrombosis and embolism; Z91.018 Allergy to other foods; Z88.8 Allergy status to other drugs, medicaments and biological substances
CPT/HCPCS: 70450; 72125; 73560; 99284; J2550

== ENCOUNTER 2017-03-29 15:28 | Emergency (ER) | payer OTHER ==
[~2017-03-29] VITALS: Ht 188 cm; Wt 122.5 kg
== END 2017-03-29 18:41 | disposition home or self-care (01) ==
LOC: CED 15:28
DX: F10.129 Alcohol abuse with intoxication, unspecified (principal); Y90.9 Presence of alcohol in blood, level not specified; J44.9 Chronic obstructive pulmonary disease, unspecified; F17.200 Nicotine dependence, unspecified, uncomplicated; Z88.8 Allergy status to other drugs, medicaments and biological substances; Z91.09 Other allergy status, other than to drugs and biological substances; Z79.899 Other long term (current) drug therapy
CPT/HCPCS: 99284

== ENCOUNTER 2017-03-29 20:01 | Emergency (ER) | payer OTHER ==
[~2017-03-29] VITALS: Ht 193 cm; Wt 122.5 kg
== END 2017-03-29 21:02 | disposition left against medical advice (07) ==
LOC: CED 20:01
DX: Z53.21 Procedure and treatment not carried out due to patient leaving prior to being seen by health care provider (principal)

== ENCOUNTER 2017-04-04 11:14 | Emergency (ER) | payer OTHER ==
[~2017-04-04] VITALS: Ht 190.5 cm; Wt 122.5 kg
--- NOTE | ~2017-04-04 | CT4 ---
[facility] A Service of [facility] & [facility] RADIOLOGY TEXT RESULTS PATIENT: IVONE JUSTIN LOCATION: [facility] : 68 UNIT #: [id number] AGE: [address]: Vlad Moya MD SEX: M ORDER DR: [id number] [facility] [address] [place], [place] [address] [id number] E MR#: [id number] Acc #: [id number] NAME: IVONE JUSTIN : 1970 SEX: M STUDY DATE/TIME: 04/04/2017 12:10 UNIT: [facility] ROOM: STUDY DESCRIPTION: CT Abd and Pelv Wo Cont Attending Physician: Vlad Moya M.D. Ordering Physician: Vlad Moya M.D. Primary Care Physician: Michelle Suarez M.D. MEDICAL IMAGING REPORT This report is preliminary unless electronic signature is present EXAM CT abdomen and pelvis without contrast, 04/04/2017, 1210 hours. CLINICAL HISTORY 46-year-old man with vomiting today after ethanol ingestion. Diffuse abdominal pain. History of kidney stones, acid reflux. COMPARISON CT abdomen, 03/30/2017. TECHNIQUE Helical noncontrasted images were obtained from the lung bases through the pubic symphysis without oral or intravenous contrast. Sagittal and coronal reconstructions were performed. Total exam DLP 577 mGy-cm This CT exam was performed with one or more of the following radiation dose reduction techniques: automatic exposure control, adjustment of mA and/or kV according to patient size, and iterative reconstruction. FINDINGS Images through the lung bases demonstrate emphysematous change. There is a persistent nodular to bandlike density in the lateral aspect of the right middle lobe. This could represent infectious or post infectious change. There is calcification at the medial aspect. This could represent mucus plugging. Malignancy is felt less likely. Consider followup chest CT without contrast in 6 months to reassess. Images through the abdomen demonstrate diffuse low attenuation of the liver similar to prior study. No focal liver lesion is seen. The spleen, pancreas, and bile ducts are normal. The gallbladder is distended and appears to contain increased density. This could indicate the presence of sludge. There is no wall thickening or pericholecystic fluid. The adrenal glands are normal. The right kidney is normal. There is a 2 mm STS. [facility] A Service of [facility] RADIOLOGY TEXT RESULTS PATIENT: IVONE JUSTIN LOCATION: [facility] : 68 UNIT #: [id number] AGE: [address]: Vlad Moya MD SEX: M ORDER DR: stone in the lower pole left kidney. There is an exophytic cyst from the lateral left kidney measuring 4.5 cm which appears slightly hyperdense and unchanged. The abdominal aorta demonstrates atherosclerotic change. There is no adenopathy or ascites. Stomach is somewhat contracted and unopacified but appears normal. There is no small bowel distension or small bowel wall thickening. The appendix is normal. The colon is nondistended. There is no wall thickening. CT pelvis demonstrates a large bladder stone unchanged. This measures 2.5 cm. The bladder is otherwise normal. The rectum is normal. There is a fat density periumbilical hernia. No bowel involvement seen. Patient has old post-traumatic changes of the spine, sacrum and right inferior ramus. There is slight retropulsion of the L1 vertebral body with narrowing of the AP dimension of the canal at the T12-L1 level unchanged from 03/30/2017. IMPRESSION 1. No significant interval change from 03/30/2017. 2. There is nodular to bandlike density in the lateral aspect right middle lobe with calcification medially. Infectious or post infectious change is favored over malignancy, however, I would suggest a followup chest CT in 6 months to reassess. 3. Diffuse low attenuation of the liver without focal lesion. 4. The gallbladder is distended and slightly dense. Presence of sludge or milk of calcium bile cannot be excluded. There is no gallbladder wall thickening or bile duct dilatation. 5. Normal noncontrasted appearance of the pancreas. 6. Stable 2 mm nonobstructing stone in the lower pole left kidney. There is an exophytic cyst slightly hyperdense from the lateral lower pole left kidney measuring 4.5 cm. There is a large bladder stone measuring 2.5 x 3 cm similar to prior exam. No bladder wall thickening is seen. 7. Fat density periumbilical hernia without bowel involvement. 8. Old vertebral fractures, sacral fracture, and right inferior ramus fractures appear healed. There is slight retropulsion of the L1 vertebral body with narrowing of the AP dimension of the spinal canal similar to 03/30/2017 and most likely chronic. Dictated by... Christiana Porras M.D. THIS IS AN ELECTRONICALLY VERIFIED REPORT Christiana Porras M.D. at 04/04/2017 8:27 PM SMM/jennifer [facility] A Service of [facility] RADIOLOGY TEXT RESULTS PATIENT: IVONE JUSTIN LOCATION: [facility] : 68 UNIT #: [id number] AGE: [address]: Vlad Moya MD SEX: M ORDER DR: TD: 04/04/2017 17:20 JOB #: [id number] MEDICAL IMAGING REPORT Page 1 of 1 COPY
[2017-04-04 13:11] LABS: BASOPHIL% 0.9 % (0-2.5); EOSINOPHIL% 0.6 % (0.0-7.0); HEMATOCRIT 29.3 % (38.0-50.0); HEMOGLOBIN 9.3 gm/dL (13.0-16.0); LYMPHOCYTE% 27.3 % (17.0-45.0); MEAN CELL VOLUME 82.3 FL (83-96); MEAN CORPUSCULAR HEMOGLOBIN 26.2 PG (28-34); MEAN CORPUSCULAR HGB CONC 31.9 g/dL (30-36); MEAN PLATELET VOLUME 7.4 FL (6.5-11.5); MONOCYTE# 0.5 X10e3 (0-1.0); MONOCYTE% 13.7 % (3.0-12.0); NEUTROPHIL% 57.5 % (40-75); PLATELET COUNT 110 X10e3 (140-420); RED BLOOD COUNT 3.56 X10e (3.90-5.60); RED CELL DISTRIBUTION WIDTH 22.9 % (11.0-15.5); WHITE BLOOD COUNT 3.5 X10e3 (4.0-10.5)
[2017-04-04 13:13] LABS: DIFF IND YES
[2017-04-04 13:23] LABS: PLATELET ESTIMATE DECREASED (NORMAL)
[2017-04-04 13:24] LABS: ANISOCYTOSIS MOD
[2017-04-04 13:26] LABS: HYPOCHROMIA SL; MICROCYTOSIS SL
[2017-04-04 13:32] LABS: ALBUMIN SERUM 3.2 g/dL (3.5-5.0); BILIRUBIN,TOTAL 0.3 mg/dL (0.2-2.0); CALCIUM SERUM 8.6 mg/dL (8.4-10.2); CREATININE SERUM 0.8 mg/dL (0.6-1.4); GLOM FILT RATE Estimated 106.4 mL/min (>60); POTASSIUM 3.3 mmol/L (3.5-5.1); PROTEIN TOTAL SERUM 6.6 g/dL (6.0-8.3)
== END 2017-04-04 16:00 | disposition home or self-care (01) ==
LOC: CED 11:14
PROVIDERS: Emergency Medicine
DX: R10.84 Generalized abdominal pain (principal); F10.129 Alcohol abuse with intoxication, unspecified; Y90.9 Presence of alcohol in blood, level not specified; J44.9 Chronic obstructive pulmonary disease, unspecified; F17.200 Nicotine dependence, unspecified, uncomplicated
CPT/HCPCS: 36415; 74176; 80053; 83690; 85025; 99284

== ENCOUNTER 2017-04-04 21:09 | Emergency (ER) | payer OTHER ==
[2017-04-05 08:31] LABS: BASOPHIL% 0.7 % (0-2.5); EOSINOPHIL# 0.1 X10e3 (0-0.7); EOSINOPHIL% 2.4 % (0.0-7.0); HEMOGLOBIN 9.8 gm/dL (13.0-16.0); LYMPHOCYTE# 1.1 X10e3 (1.0-3.5); LYMPHOCYTE% 30.9 % (17.0-45.0); MEAN CELL VOLUME 82.3 FL (83-96); MEAN CORPUSCULAR HEMOGLOBIN 26.1 PG (28-34); MEAN CORPUSCULAR HGB CONC 31.7 g/dL (30-36); MEAN PLATELET VOLUME 7.3 FL (6.5-11.5); MONOCYTE# 0.5 X10e3 (0-1.0); MONOCYTE% 15.8 % (3.0-12.0); NEUTROPHIL# 1.7 X10e3 (1.5-7.1); NEUTROPHIL% 50.2 % (40-75); PLATELET COUNT 108 X10e3 (140-420); RED BLOOD COUNT 3.77 X10e (3.90-5.60); RED CELL DISTRIBUTION WIDTH 22.7 % (11.0-15.5); WHITE BLOOD COUNT 3.5 X10e3 (4.0-10.5)
[2017-04-05 08:51] LABS: DIFF IND NO
[2017-04-05 08:57] LABS: BUN/CREATININE RATIO 8.75; CALCIUM SERUM 8.7 mg/dL (8.4-10.2); CREATININE SERUM 0.8 mg/dL (0.6-1.4); GLOM FILT RATE Estimated 106.4 mL/min (>60); POTASSIUM 3.4 mmol/L (3.5-5.1)
== END 2017-04-05 11:05 ==
LOC: CED 21:09
PROVIDERS: Emergency Medicine
DX: F32.9 Major depressive disorder, single episode, unspecified (principal); F10.20 Alcohol dependence, uncomplicated; Y90.6 Blood alcohol level of 120-199 mg/100 ml; Z98.890 Other specified postprocedural states; Z88.8 Allergy status to other drugs, medicaments and biological substances; Z91.018 Allergy to other foods; Z79.899 Other long term (current) drug therapy
CPT/HCPCS: 80048; 85025; 94640; 99285; G0480

== ENCOUNTER 2017-04-05 06:00 | Inpatient (IN) | payer OTHER ==
[~2017-04-05] VITALS: Ht 193 cm; Wt 121.1 kg
--- NOTE | ~2017-04-05 | PN ---
Unit #: [id number] #: [id number] Patient: IVONE JUSTIN [id number] [facility] [address] [place] [address] [id number] I MR#: [id number] NAME: IVONE JUSTIN ROOM: [facility] Age: 46 Sex: M Admission Date: 04/05/2017 : 1970 Attending Physician: Anish Ramos M.D. Admitting Physician: Anish Ramos M.D. Primary Care Physician: Kristy Bhatt PROGRESS NOTES DATE 04/06/2017 DISCUSSION The patient voices no new complaints today. He exhibits little in the way of signs or symptoms of discharge, and I have told him to expect Sunday discharge. He states that he is working towards disposition options. Dictated by... Anish Ramos M.D. CB/cleo TD: 04/07/2017 14:08 JOB #: [id number] [facility] PROGRESS NOTES Page 1 of 1 X Anish Ramos MD X PROGRESS NOTE
--- NOTE | ~2017-04-05 | PN ---
Unit #: [id number] #: [id number] Patient: IVONE JUSTIN [id number] [facility] [address] [place] [address] [id number] I MR#: [id number] NAME: IVONE JUSTIN ROOM: [facility] Age: 46 Sex: M Admission Date: 04/05/2017 : 1970 Attending Physician: Anish Ramos M.D. Admitting Physician: Anish Ramos M.D. Primary Care Physician: Kristy Bhatt PROGRESS NOTES DATE 04/08/2017 DISCUSSION The patient is actively participating in the therapeutic milieu and exhibits no signs or symptoms of withdrawal. We plan on a.m. discharge and the patient is informed of the same. Dictated by... Anish Ramos M.D. CB/laila TD: 04/08/2017 22:44 JOB #: [id number] [facility] PROGRESS NOTES Page 1 of 1 X Anish Ramos MD X PROGRESS NOTE
--- NOTE | ~2017-04-05 | PA ---
Unit #: [id number] #: [id number] Patient: IVONE JUSTIN [id number] [place] [address] [id number] I MR#: [id number] NAME: IVONE JUSTIN ROOM: 79 Age: 46 Sex: M Admission Date: 04/05/2017 : 1970 Date of Assessment: 04/05/2017 Attending Physician: Anish Ramos M.D. Admitting Physician: Anish Ramos M.D. Primary Care Physician: Michelle Suarez M.D. PSYCHIATRIC ASSESSMENT IDENTIFYING INFORMATION The patient is a 46-year-old white male well known to this physician from a seemingly numerable previous admissions to this facility. He is admitted following a recent relapse. CHIEF COMPLAINT "I fell off" INFORMANT(S) The patient, patient's reliability is fair. HISTORY OF PRESENT ILLNESS The patient is a 46-year-old white male last discharged from this facility on 03/18/2017. He claims to maintain sobriety for "six weeks" in spite of the fact that he only been out of the hospital about two weeks whatever the case the patient had reported to the [facility] Emergency Room complaining of suicidal ideation with a plan to shoot himself using a friend's gun or walk into traffic. When seen today the patient does admit to abuse of alcohol. He denies abuse of other psychiatric substances. For a more complete history of present illness please refer to multiple previous dictated notes. PAST PSYCHIATRIC HISTORY Reviewed no changes. PAST MEDICAL HISTORY Reviewed no changes. MEDICATIONS 1. Proventil 2. Desyrel 3. Requip 4. Neurontin 5. Flomax 6. Lasix 7. Protonix 8. Prozac 9. Ibuprofen 10. Vistaril 11. Proventil Hfa 12. Symbicort ALLERGIES Unit #: [id number] #: [id number] Patient: IVONE JUSTIN Remeron, Zofran, and strawberries. FAMILY HISTORY Reviewed no changes. SOCIAL HISTORY Reviewed no changes. MENTAL STATUS EXAMINATION At this time reveals the patient to be an obese disheveled white male appearing his stated age. He appears to be in moderate physical distress during evaluation. He is awake, alert, and oriented in all spheres. His mood is dysphoric. His affect constricted. Speech is generally relevant and coherent. There are no gross deficits in memory or cognition noted. Intelligence is judged to be in the low average range based on fund of knowledge. The patient is cooperative throughout the interview. He is currently endorsing positive suicidal ideation. He denies homicidal ideation. He denies any psychotic symptoms. His judgment and insight appear to be at baseline. ASSETS AND LIABILITIES ASSETS: To be assessed. LIABILITIES: Lack of resources. DIAGNOSTIC IMPRESSION 1. Alcohol use disorder. 2. Dysthymic disorder. 3. Benign prostatic hypertrophy. 4. COPD. TREATMENT PLAN The patient remains hospitalized for safety and stabilization. We will continue previously prescribed medications and a routine detoxification protocol has been initiated. The patient will participate in appropriate martinez and milieu activities with an estimate length of stay in the hospital of two to three days. Dictated by... Anish Ramos M.D. KEARA/laila TD: 04/05/2017 22:25 JOB #: [id number] PSYCHIATRIC ASSESSMENT Page 1 of 1 X Anish Ramos MD X PSYCHIATRIC ASSESSMENT
--- NOTE | ~2017-04-05 | PN ---
Unit #: [id number] #: [id number] Patient: IVONE JUSTIN [id number] [facility] [address] [place] [address] [id number] MR#: [id number] NAME: IVONE JUSTIN ROOM: [facility] Age: 46 Sex: M Admission Date: 04/05/2017 : 1970 Attending Physician: Anish Ramos M.D. Admitting Physician: Anish Ramos M.D. Primary Care Physician: Kristy Bhatt PROGRESS NOTES DATE 04/06/2017 DISCUSSION The patient offers no new complaints when seen today. He is actively participating in the therapeutic milieu. I have told him to expect Sunday discharge. Dictated by... Ansih Ramos M.D. KEARA/dung TD: 04/06/2017 15:26 JOB #: [id number] FARAZ PROGRESS NOTES Page 1 of 1 X Anish Ramos MD X PROGRESS NOTE
--- NOTE | ~2017-04-05 | DS ---
Unit #: [id number] #: [id number] Patient: IVONE JUSTIN [id number] [facility] [address] [place] [address] [id number] I MR#: [id number] NAME: IVONE JUSTIN ROOM: [facility] Age: 46 Sex: M Admission Date: 04/05/2017 : 1970 Discharge Date: 04/09/2017 Attending Physician: Anish Ramos M.D. Primary Care Physician: Michelle Suarez M.D. DISCHARGE SUMMARY REASON FOR ADMISSION The patient is a 46-year-old white male, admitted to the [facility] unit after he had presented to [facility] intoxicated and claiming to be suicidal. HOSPITAL COURSE The patient was admitted to the [facility] unit and placed on routine detoxification protocol for alcohol. Home medications were continued. His stay in the hospital was a brief and uneventful one. His detox progressing smoothly. By 04/09/2017, the patient's detox was complete and discharge was ordered. At that time, he denied any suicidal ideation. FINAL DIAGNOSES Alcohol use disorder; dysthymic disorder; antisocial personal disorder; rule out malingering; chronic obstructive pulmonary disease; benign prostatic hypertrophy; chronic pain. DISPOSITION ON DISCHARGE The patient is discharged on the following medications; Proventil 3 mL q.6 hours p.r.n. shortness of air, Symbicort one puff b.i.d. for shortness of air, Proventil 2 puffs q.4 hours for p.r.n. shortness of air, Vistaril 50 mg q.6 hours p.r.n. anxiety, Motrin 800 mg q.8 hours for pain, Lasix 20 mg daily for hypertension, Flomax 0.4 mg daily for benign prostatic hypertrophy, Neurontin 800 mg q.i.d. for chronic pain, Requip 0.25 mg at bedtime for restless legs syndrome, Desyrel 300 mg at bedtime p.r.n. insomnia. DISCHARGE INSTRUCTIONS No dietary or physical restrictions were placed upon the patient at the time of discharge. FOLLOWUP Followup will take place through the auspices of community mental health resources. PROGNOSIS The patient's prognosis remains guarded. Dictated by... Anish Ramos M.D. CB/modl Unit #: [id number] #: [id number] Patient: IVONE JUSTIN TD: 04/11/2017 07:35 JOB #: [id number] DISCHARGE SUMMARY Page 1 of 1 X Anish Ramos MD X DISCHARGE SUMMARY
--- NOTE | ~2017-04-05 | HP ---
Unit #: [id number] #: [id number] Patient: TESSA JUSTIN [id number] [place] [address] [id number] MR#: [id number] NAME: TESSA JUSTIN ROOM: P179 Age: 46 Sex: M Admission Date: 04/05/2017 : 1970 Attending Physician: Anish Ramos M.D. Admitting Physician: Anish Ramos M.D. Primary Care Physician: Michelle Suarez M.D. HISTORY AND PHYSICAL NOTE Tessa is a 46 year old admitted to [facility] because of his continued abuse of alcohol. He has had numerous admissions to this facility for the same. The patient was seen and H and P dated 03/06/2017 was reviewed. This is current. No changes. Please see H and P dated 03/06/2017. Dictated by... Tonia Jason P.A.-C. for Kristy Serrano/laila TD: 04/06/2017 01:49 JOB #: [id number] HISTORY AND PHYSICAL Page 1 of X Tonia Jason HISTORY AND PHYSICAL
[2017-04-07 13:13] LABS: URINE APPEARANCE CLEAR; URINE BILIRUBIN NEG (NEG); URINE BLOOD 2+ (NEG); URINE COLOR DK YELLOW; URINE GLUCOSE NEG (NEG); URINE KETONE NEG (NEG); URINE LEUKOCYTE ESTERASE NEG (NEG); URINE NITRATE NEG (NEG); URINE PROTEIN NEG (NEG); URINE SPECIFIC GRAVITY 1.007 (1.003-1.035); URINE UROBILINOGEN 0.2 MG/DL (NEG)
[2017-04-07 13:15] LABS: URBCS1 AUWI 0-2 /[HPF] (0-2); URINE BACTERIA AUWI NEG (NEGATIVE); URINE SQUAMOUS EPITHELIAL CELL NONE SEEN /[HPF]; UWBCS1 AUWI 0-2 (0-5)
[2017-04-07 14:13] LABS: AMPHETAMINE NEG (NEG); BARBITURATES NEG (NEG); BENZODIAZEPINES POS (NEG); COCAINE NEG (NEG); MARIJUANA NEG (NEG); OPIATES NEG (NEG); TRICYCLIC ANTIDEPRESSANTS NEG (NEG); U METHADONE NEG (NEG)
== END 2017-04-09 14:20 | DRG 897 ==
LOC: P1E 11:50
PROVIDERS: Specialist
PROC: HZ2ZZZZ Detoxification Services for Substance Abuse Treatment (ICD-10-PCS; principal; 2017-04-05)
DX: F10.10 Alcohol abuse, uncomplicated (principal); R45.851 Suicidal ideations; F34.1 Dysthymic disorder; N40.0 Benign prostatic hyperplasia without lower urinary tract symptoms; J44.9 Chronic obstructive pulmonary disease, unspecified; Z88.8 Allergy status to other drugs, medicaments and biological substances; F60.2 Antisocial personality disorder; Z76.5 Malingerer [conscious simulation]; G89.29 Other chronic pain
CPT/HCPCS: 80307; 81003

== ENCOUNTER 2017-04-18 20:00 | Inpatient (IN) | payer OTHER ==
[~2017-04-18] VITALS: Ht 193 cm; Wt 121.1 kg
--- NOTE | ~2017-04-18 | CO ---
Unit #: [id number] #: [id number] Patient: TESSA JUSTIN [id number] [place] [address] [id number] Shelia MR#: [id number] NAME: TESSA JUSTIN ROOM: P209 Age: 46 Sex: M Admission Date: 04/19/2017 : 1970 Attending Physician: Anish Ramos M.D. Primary Care Physician: Michelle Suarez M.D. Consultation Date: 04/20/2017 CONSULTATION REPORT JOHNATHON Zarate is 46-year-old with a long history of alcohol abuse and COPD. Sometime after admission, he complained of congestion and dry cough. He denied any shortness of breath and there have been no recorded increased temperatures. We have been asked to assess and give recommendations. He was seen for his admission H and P on 04/19/2017. At that time, lungs were clear and no cough was noted. He was examined again on 04/20/2017 and again exam showed lung faulkner to be clear and no cough was noted. Tessa had requested mini-nebs. I explained to him that I did not think that these were appropriate. He had an albuterol inhaler to be used as needed. We will continue the albuterol inhaler with no plans to start albuterol mini-nebs. Dictated by... Tonia Jason P.A.-C. for Kristy Serrano/favian TD: 04/27/2017 20:27 JOB #: [id number] CONSULTATION REPORT Page 1 of 1 X Tonia Jason CONSULTATION REPORT
--- NOTE | ~2017-04-18 | PN ---
Unit #: [id number] #: [id number] Patient: IVONE JUSTIN [id number] [facility] [address] [place] [address] [id number] Shelia MR#: [id number] NAME: IVONE JUSTIN ROOM: P209 Age: 46 Sex: M Admission Date: 04/19/2017 : 1970 Attending Physician: Anish Ramos M.D. Admitting Physician: Anish Ramos M.D. Primary Care Physician: Kristy Bhatt PROGRESS NOTES DATE 04/20/2017 DISCUSSION The patient is today complaining of some diarrhea but is otherwise in good spirits and active within the therapeutic milieu. I have told him to expect discharge after the weekend. Dictated by... Anish Ramos M.D. CB/bzg TD: 04/20/2017 14:42 JOB #: [id number] FARAZ PROGRESS NOTES Page 1 of 1 X Anish Ramos MD X PROGRESS NOTE
--- NOTE | ~2017-04-18 | HP ---
Unit #: [id number] #: [id number] Patient: TESSA JUSTIN [id number] [place] [address] [id number] I MR#: [id number] NAME: TESSA JUSTIN ROOM: P209 Age: 46 Sex: M Admission Date: 04/19/2017 : 1970 Attending Physician: Anish Ramos M.D. Admitting Physician: Anish Ramos M.D. Primary Care Physician: Michelle Suarez M.D. HISTORY AND PHYSICAL HISTORY OF PRESENT ILLNESS Tessa is a 46 year old admitted to [address] [place] [address] because of his continued abuse of alcohol. PAST MEDICAL HISTORY 1. Long history of alcohol abuse. 2. COPD. 3. Morbid obesity. 4. GERD. 5. History of withdrawal seizures. 6. High blood pressure. 7. BPH. 8. History of melanoma, anterior chest wall. PAST SURGICAL HISTORY Resection of a melanoma along his anterior chest wall. ALLERGIES Morphine, Risperdal, Remeron. SOCIAL HISTORY Continues to smoke 1 pack per day. Drinks alcohol on a daily basis and denies illicit drug use. FAMILY HISTORY Medically noncontributory. REVIEW OF SYSTEMS CONSTITUTIONAL: No fever or chills. HEENT: Denies any sore throat, ear pain or runny nose. CARDIOVASCULAR: Denies chest pain, irregular heart rhythm or palpitations. CHEST: Denies shortness of breath or cough. No hemoptysis. GASTROINTESTINAL: Denies nausea, vomiting, diarrhea or chronic constipation. ENDOCRINE: Denies history of increased thirst or urination. No recent significant weight loss or gain. GENITOURINARY: Denies dysuria, frequency, or hematuria. SKIN: Denies any rashes. HEMATOLOGIC: Denies history of increased bleeding or bruising. MUSCULOSKELETAL: Denies any hot, swollen joints. No generalized muscle pain. NEUROLOGIC: Denies problems with vision or speech. No frequent, severe headaches. No numbness, tingling or weakness in any extremities. Denies Unit #: [id number] #: [id number] Patient: TESSA JUSTIN loss of bladder or bowel control. CURRENT MEDICATIONS 1. Detox protocol. 2. Requip 0.25 mg q.h.s. 3. Symbicort b.i.d. 4. Flomax 0.4 mg daily. 5. Lasix 20 mg daily. 6. Ibuprofen 800 mg q. 8 hours p.r.n. 7. Proventil inhaler p.r.n. 8. Mini-nebs q. 6 hours p.r.n. PHYSICAL EXAMINATION GENERAL: Alert, morbid obesity, in no apparent distress. VITAL SIGNS: Blood pressure 110/50, heart rate 80, respirations 16, temperature 98.6. WEIGHT: 267. HEIGHT: 6 feet 4 inches. SKIN: Warm and dry without rash or lesion. HEENT: Normocephalic. TMs not viewed. Oral and nasal passages clear. Conjunctivae clear. PERRLA. EOMs intact. NECK: Supple without lymphadenopathy or thyromegaly. HEART: Regular rate and rhythm without murmur. LUNGS: Clear. ABDOMEN: Soft, nontender. : Not done. EXTREMITIES: No evidence of cyanosis, clubbing or edema. Moves all without focal deficit. NEUROLOGICAL: Grossly within normal limits. Cranial Nerves: II: Visual faulkner are intact. III, IV AND : Extraocular movements are intact. Pupils are equal, round and reactive to light. V: Facial sensation is grossly normal. VII: Facial movements and expression are normal. VIII: Auditory acuity grossly intact. IX, X: Uvula is midline. Phonation is normal. XI: Patient shrugs shoulders and turns head normally. XII: Tongue protrudes in the midline. Sensory and Motor Function: Sensory and motor sensation is grossly normal. Motor: moves all extremities well. Coordination: Gait is normal. Deep Tendon Reflexes: Intact. IMPRESSION Psychiatric admission. RECOMMENDATIONS PSYCHIATRIC: Per psychiatrist. MEDICAL: See no contraindication to participate in facility's activities. MEDICAL PROGNOSIS Good. MEDICAL CONDITION Stable. Dictated by... Tonia Jason P.A.-C. for Unit #: [id number] #: [id number] Patient: TESSA JUSTIN Kristy Serrano/dung TD: 04/19/2017 16:12 JOB #: [id number] HISTORY AND PHYSICAL Page 1 of 1 X Tonia Jason X HISTORY AND PHYSICAL
--- NOTE | ~2017-04-18 | CO ---
Unit #: [id number] #: [id number] Patient: TESSA JUSTIN [id number] [place] [address] [id number] Shelia MR#: [id number] NAME: TESSA JUSTIN ROOM: P209 Age: 46 Sex: M Admission Date: 04/19/2017 : 1970 Attending Physician: Anish Ramos M.D. Primary Care Physician: Michelle Suarez M.D. Consultation Date: 04/20/2017 CONSULTATION REPORT SUBJECTIVE Tessa is a 46 year old with a long history of alcohol abuse and COPD. Sometime after admission, he complained of congestion and dry cough. He denied any shortness of breath, and there have been no recorded increased temperatures. We have been asked to assess and give recommendations. He was seen for his admission H and P on 04/19/2017. At that time, lungs were clear and no cough was noted. He was examined again on 04/20/2017, and again exam showed lung faulkner to be clear, and no cough was noted. Tessa had requested Mini-Nebs. I explained to him that I did not think that these were appropriate. He had an albuterol inhaler to be used as needed. We will continue the albuterol inhaler with no plans to start albuterol Mini-Nebs. Dictated by... Tonia Jason P.A.-C. for Kristy Serrano/cleo TD: 04/27/2017 11:22 JOB #: [id number] CONSULTATION REPORT Page 1 of 1 X Tonia Jason CONSULTATION REPORT
--- NOTE | ~2017-04-18 | PN ---
Unit #: [id number] #: [id number] Patient: IVONE JUSTIN [id number] [facility] [address] [place] [address] [id number] I MR#: [id number] NAME: IVONE JUSTIN ROOM: P209 Age: 46 Sex: M Admission Date: 04/19/2017 : 1970 Attending Physician: Anish Ramos M.D. Admitting Physician: Anish Ramos M.D. Primary Care Physician: Kristy Bhatt PROGRESS NOTES DATE 04/21/2017 DISCUSSION The patient claims to have been accepted at "[facility]," but reports that he cannot be transferred to that physician until Sunday. I have told him once again to expect discharge on Sunday. Dictated by... Anish Ramos M.D. CB/cleo TD: 04/21/2017 11:59 JOB #: [id number] FARAZ PROGRESS NOTES Page 1 of 1 X Anish Ramos MD X PROGRESS NOTE
--- NOTE | ~2017-04-18 | DS ---
Unit #: [id number] #: [id number] Patient: IVONE JUSTIN [id number] [facility] [address] [place] [address] [id number] MR#: [id number] NAME: IVONE JUSTIN ROOM: P209 Age: 46 Sex: M Admission Date: 04/19/2017 : 1970 Discharge Date: 04/23/2017 Attending Physician: Anish Ramos M.D. Primary Care Physician: Michelle Suarez M.D. DISCHARGE SUMMARY REASON FOR ADMISSION The patient is a 46-year-old white male, admitted yet again to the hospital claiming to be suicidal. HOSPITAL COURSE The patient was admitted to the [address] [place] [address] and placed on a routine detoxification protocol for alcohol use. Continue his home medications. His stay in the hospital was a fairly typical one. He exhibited little in the way of signs or symptoms of withdrawal and never voiced any suicidal ideation once hospitalized. By 04/23, the patient reported that he was going to live with his brother and continue his participation with [facility] resources. Discharge was ordered. DISCHARGE DIAGNOSES [place] I Alcohol use disorder. Dysthymic disorder. [place] II Antisocial personality disorder. [place] III Obesity. Chronic obstructive pulmonary disease. Chronic pain. Restless leg syndrome. Benign prostatic hypertrophy. [place] IV [place] V DISPOSITION ON DISCHARGE The patient is discharged on the following medications: 1. Proventil two puffs p.r.n. shortness of air 2. Vistaril 50 mg q.6h p.r.n. anxiety 3. Motrin 800 mg q.8h p.r.n. pain 4. Lasix 20 mg daily for hypertension 5. Flomax 0.4 mg daily for benign prostatic hypertrophy 6. Neurontin 800 mg four times daily for anxiety 7. Requip 0.25 mg at bedtime for restless leg syndrome 8. Trazodone 300 mg at h.s. p.r.n. insomnia 9. Symbicort one puff twice daily for shortness of breath PROGNOSIS The patient's prognosis remains guarded. DIET AND ACTIVITY No dietary or physical restrictions were placed on the patient at the time Unit #: [id number] #: [id number] Patient: IVONE JUSTIN of discharge. Follow up will take place through the auspices of [facility] health resources. Dictated by... Kristy Velasquez TD: 04/25/2017 09:08 JOB #: [id number] DISCHARGE SUMMARY Page 1 of 1 X Anish Ramos MD X DISCHARGE SUMMARY
--- NOTE | ~2017-04-18 | PN ---
Unit #: [id number] #: [id number] Patient: IVONE JUSTIN [id number] [facility] [address] [place] [address] [id number] I MR#: [id number] NAME: IVONE JUSTIN ROOM: P209 Age: 46 Sex: M Admission Date: 04/19/2017 : 1970 Attending Physician: Anish Ramos M.D. Admitting Physician: Anish Ramos M.D. Primary Care Physician: Kristy Bhatt PROGRESS NOTES DATE 04/22/2017 DISCUSSION The patient is in brighter spirits today. He states now that he will go and live with his brother following his discharge from the hospital and he is no longer expressing interest in "[facility]" A.m. discharge is planned. Dictated by... Anish Ramos M.D. CB/laila TD: 04/22/2017 22:25 JOB #: [id number] FARAZ PROGRESS NOTES Page 1 of 1 X Anish Ramos MD X PROGRESS NOTE
--- NOTE | ~2017-04-18 | PA ---
Unit #: [id number] #: [id number] Patient: IVONE JUSTIN [id number] [facility] [address] [place] [address] [id number] I MR#: [id number] NAME: IVONE JUSTIN ROOM: P209 Age: 46 Sex: M Admission Date: 04/19/2017 : 1970 Date of Assessment: 04/19/2017 Attending Physician: Anish Ramos M.D. Admitting Physician: Anish Ramos M.D. Primary Care Physician: Michelle Suarez M.D. PSYCHIATRIC ASSESSMENT IDENTIFYING INFORMATION The patient is a 46-year-old white male well known to this physician, readmitted after he presented to [facility] intoxicated and claiming to be suicidal. CHIEF COMPLAINT None given. INFORMANT(S) Patient and chart, reliability good. HISTORY OF PRESENT ILLNESS The patient is a 46-year-old white male just discharged from this facility 10 days ago. He was readmitted after he had presented to [facility] intoxicated and claiming to be suicidal. The patient also reported that he was feeling "dehydrated and sick." The patient reports that he was "living at [facility] after his discharged, but relapsed from alcohol shortly after his discharge from this facility." He continues to report the symptoms of significant withdrawal, but denies suicidal ideation when seen today. For more complete history of present illness, please refer to previously dictated notes. PAST PSYCHIATRIC HISTORY Reviewed, no changes. PAST MEDICAL HISTORY Reviewed, no changes. MEDICATIONS Proventil, Symbicort, Vistaril, Motrin, Lasix, Flomax, Neurontin, Requip, and Desyrel. ALLERGIES Remeron, Zofran. FAMILY HISTORY Reviewed, no changes. SOCIAL HISTORY Reviewed, no changes. MENTAL STATUS EXAMINATION Examination at this time reveals the patient to be an obese white male Unit #: [id number] #: [id number] Patient: IVONE JUSTIN appearing stated age. He is in no apparent physical distress at the time of examination. He is dressed in hospital garb. He is awake, alert, and oriented in all spheres. His mood is euthymic, his affect congruent. Speech is generally well coherent. There are no gross deficits in memory or cognition noted. Intelligence is judged to be in the average range based on fund of knowledge. The patient is cooperative throughout the interview. He is denying current suicidal or homicidal ideation or psychotic features. Judgment and insight appear to be at baseline. ASSETS AND LIABILITIES The patient's assets are to be assessed. Liabilities: Continued alcohol use, homelessness, lack of resources, lack of investment in treatment. DIAGNOSTIC IMPRESSION 1. Alcohol use disorder. 2. Benign prostatic hypertrophy. 3. Chronic obstructive pulmonary disease. 4. Chronic pain. 5. Hypertension. TREATMENT PLAN The patient remains hospitalized for safety and stabilization. Routine detoxification protocol for alcohol has been initiated, and the patient will participate in appropriate order of milieu activities. Suicide precautions are in place given threats made at the time of admission. ESTIMATED LENGTH OF STAY 3 to 4 days. Dictated by... Anish Ramos M.D. KEARA/cleo TD: 04/19/2017 14:09 JOB #: [id number] PSYCHIATRIC ASSESSMENT Page 1 of 1 X Anish Ramos MD X PSYCHIATRIC ASSESSMENT
== END 2017-04-23 15:27 | DRG 897 ==
LOC: P2S 04-19 00:44
PROC: HZ2ZZZZ Detoxification Services for Substance Abuse Treatment (ICD-10-PCS; principal; 2017-04-19)
DX: F10.20 Alcohol dependence, uncomplicated (principal); E66.01 Morbid (severe) obesity due to excess calories; I10 Essential (primary) hypertension; N40.0 Benign prostatic hyperplasia without lower urinary tract symptoms; J44.9 Chronic obstructive pulmonary disease, unspecified; G89.29 Other chronic pain; K21.9 Gastro-esophageal reflux disease without esophagitis; F17.210 Nicotine dependence, cigarettes, uncomplicated; Z88.5 Allergy status to narcotic agent; Z88.8 Allergy status to other drugs, medicaments and biological substances

== ENCOUNTER 2017-05-03 19:21 | Emergency (ER) | payer OTHER | END 2017-05-04 06:17 | disposition home or self-care (01) | LOC: CED 19:21 | DX: J44.9 Chronic obstructive pulmonary disease, unspecified (principal); F10.129 Alcohol abuse with intoxication, unspecified; I48.91 Unspecified atrial fibrillation; K21.9 Gastro-esophageal reflux disease without esophagitis; Z86.718 Personal history of other venous thrombosis and embolism; Z98.890 Other specified postprocedural states; F17.200 Nicotine dependence, unspecified, uncomplicated; Z88.8 Allergy status to other drugs, medicaments and biological substances; Z79.899 Other long term (current) drug therapy | CPT/HCPCS: 94640; 99284 ==

== ENCOUNTER 2017-05-05 06:00 | Inpatient (IN) | payer OTHER ==
[~2017-05-05] VITALS: Ht 193 cm; Wt 129.7 kg
--- NOTE | ~2017-05-05 | PA ---
Unit #: [id number] #: [id number] Patient: IVONE JUSTIN [id number] [facility] [address] [place] [address] [id number] MR#: [id number] NAME: IVONE JUSTIN ROOM: [facility] Age: 46 Sex: M Admission Date: 05/05/2017 : 1970 Date of Assessment: 05/06/2017 Attending Physician: Anish Ramos M.D. Admitting Physician: Anish Ramos M.D. Primary Care Physician: Gabriele Valencia M.D. PSYCHIATRIC ASSESSMENT IDENTIFYING INFORMATION The patient is a 46-year-old white male admitted to the [address] [place] [address] for alcohol detox. CHIEF COMPLAINT None given. INFORMANT(S) Patient and chart, reliability good. HISTORY OF PRESENT ILLNESS The patient is a 46-year-old white male well known to this facility for multiple previous admissions to this facility. He is readmitted after he had presented at [facility] claiming to be suicidal. The patient will be reporting positive thoughts of suicide with the plan to jump into traffic or jump off the bridge. As been noted on multiple previous occasions the patient has a history of multiple previous admissions to this facility under similar circumstances. For more complete history of present illness please refer to previous dictated notes. PAST PSYCHIATRIC HISTORY Reviewed, no changes. PAST MEDICAL HISTORY Reviewed, no changes. MEDICATIONS Lasix, Motrin, Flomax, Neurontin, Requip, Symbicort, Proventil, albuterol, Vistaril, trazodone. ALLERGIES Zofran, Remeron, strawberries. FAMILY HISTORY Reviewed, no changes. SOCIAL HISTORY Reviewed, no changes. MENTAL STATUS EXAMINATION Examination at this time reveals the patient to be an obese disheveled white male appearing his stated age. He is in no apparent physical distress at the time of examination. He is awake, alert and oriented in Unit #: [id number] #: [id number] Patient: IVONE JUSTIN all spheres. His mood is euthymic. His affect full range. Speech is generally relevant and coherent. There are no gross deficits to memory or cognition noted. Intelligence is judged to be in the average range based on fund of knowledge. The patient is cooperative throughout the interview. He denies current suicidal or homicidal ideation or psychotic features. His judgement and insight appear to be reasonably intact. ASSETS AND LIABILITIES ASSETS: The patient's assets are to be assessed. LIABILITIES: Chronicity of alcoholism, lack of investment in treatment. DIAGNOSTIC IMPRESSION 1. Alcohol use disorder. 2. Benign prostatic hypertrophy. 3. Hypertension. 4. Chronic obstructive pulmonary disease. TREATMENT PLAN The patient remains hospitalized for safety and stabilization. Routine detoxification protocol for alcohol has been initiated. The patient will participate in appropriate order of milieu activities. His expectations of inpatient care are today firmly redirected. Dictated by... Anish Ramos M.D. KEARA/laila TD: 05/06/2017 21:12 JOB #: [id number] PSYCHIATRIC ASSESSMENT Page 1 of 1 X Anish Ramos MD X PSYCHIATRIC ASSESSMENT
--- NOTE | ~2017-05-05 | CO ---
Unit #: [id number] #: [id number] Patient: TESSA JUSTIN [id number] [place] [address] [id number] MR#: [id number] NAME: TESSA JUSTIN ROOM: [facility] Age: 46 Sex: M Admission Date: 05/05/2017 : 1970 Attending Physician: Anish Ramos M.D. Primary Care Physician: Gabriele Valencia M.D. Consultation Date: 05/05/2017 CONSULTATION REPORT HISTORY OF PRESENT ILLNESS Tessa is a 46-year-old male, who has complaints of itchy bumps on his arms for the past 2 days. He also has a bump on his right back that he noticed at least 6 months ago. He has a history of lipoma removal from his face and shoulder and this feels the same. He does not have any pain. No redness. No swelling. He does report that he believes the bumps on his arms are due to bug bites that he sustained while he was at his brother's house a few days ago. He has no other complaints. PHYSICAL EXAMINATION CARDIAC: Regular rate and rhythm. No murmurs, gallops, or rubs. RESPIRATORY: Clear to auscultation bilaterally. SKIN: Multiple bug bites, in various stages of healing. No signs or symptoms of infection on bilateral arms and abdomen. He also has 1.5 cm lipoma on his right back. ASSESSMENT AND PLAN 1. Lipoma. The patient was instructed to follow up with primary care provider if he desired to have this removed. At this time, it is not causing any problems. 2. Bug bites. We will begin Zyrtec 10 mg p.o. daily, Zantac 150 mg p.o. b.i.d., and hydrocortisone 1% applied to the sores daily until healed. Please notify if any signs or symptoms or infection are present. Dictated by... Doug Dean/favian TD: 05/05/2017 23:11 JOB #: [id number] Unit #: [id number] #: [id number] Patient: TESSA JUSTIN CONSULTATION REPORT Page 1 of 1 X KAVEH DELA CRUZ APRN CONSULTATION REPORT
--- NOTE | ~2017-05-05 | PN ---
Unit #: [id number] #: [id number] Patient: IVONE JUSTIN [id number] [facility] [address] [place] [address] [id number] MR#: [id number] NAME: IVONE JUSTIN ROOM: [facility]205 Age: 46 Sex: M Admission Date: 05/05/2017 : 1970 Attending Physician: Anish Ramos M.D. Admitting Physician: Anish Ramos M.D. Primary Care Physician: Kristy Raygoza PROGRESS NOTES DATE 05/07/2017 DISCUSSION The patient continues to present with medication seeking behavior but is otherwise on management issue. I have told him to expect a.m. discharge. He states that he has made arrangements to go "commitment house." Dictated by... Anish Ramos M.D. KEARA/laila TD: 05/08/2017 23:11 JOB #: [id number] [facility] PROGRESS NOTES Page 1 of 1 X Anish Ramos MD PROGRESS NOTE
--- NOTE | ~2017-05-05 | DS ---
Unit #: [id number] #: [id number] Patient: IVONE JUSTIN [id number] [facility] [address] [place] [address] [id number] MR#: [id number] NAME: IVONE JUSTIN ROOM: [facility] Age: 46 Sex: M Admission Date: 05/05/2017 : 1970 Discharge Date: 05/08/2017 Attending Physician: Anish Ramos M.D. Primary Care Physician: Gabriele Valencia M.D. DISCHARGE SUMMARY REASON FOR ADMISSION The patient is a 46-year-old white male well-known to this physician admitted yet again reporting suicidal ideation and abuse of alcohol. HOSPITAL COURSE The patient is admitted to the [address] [place] [address] and placed on routine detoxification protocol for alcohol. He was restarted on previously prescribed medications. His detox was uneventful one and by 05/08, the patient was no longer exhibiting any signs of withdrawal and denied suicidal ideation. Discharge was ordered. DISCHARGE DIAGNOSES 1. Alcohol use disorder. 2. Antisocial personality disorder. 3. Benign prostatic hypertrophy. 4. Obesity. 5. Chronic obstructive pulmonary disease. 6. Restless leg syndrome. FOLLOWUP CARE Followup to take place through the auspices of [facility]. DISCHARGE MEDICATIONS The patient is discharged on the following medications: 1. Lasix 20 mg daily for hypertension. 2. Motrin 800 mg q. 8 hours p.r.n. pain. 3. Flomax 0.4 mg daily for BPH. 4. Neurontin 800 mg 4 times daily for chronic pain. 5. Requip 0.25 mg at bedtime for restless leg syndrome. 6. Proventil HFA 2 puffs q. 6 hours p.r.n. shortness of air. 7. Vistaril 50 mg q. 6 hours p.r.n. anxiety. 8. Desyrel 300 mg at h.s. p.r.n. insomnia. 9. Symbicort 1 puff b.i.d. for shortness of air. 10. Claritin 10 mg once daily for environmental allergies. 11. Pepcid 20 mg b.i.d. for GERD. 12. Cortone applied b.i.d. to affected rash areas. PROGNOSIS Remains guarded. DIET AND ACTIVITY Unit #: [id number] #: [id number] Patient: IVONE JUSTIN No dietary or physical restrictions placed on the patient at time of discharge. Dictated by... Anish Ramos M.D. CB/dung TD: 05/08/2017 16:15 JOB #: [id number] DISCHARGE SUMMARY Page 1 of 1 X Anish Ramos MD X DISCHARGE SUMMARY
--- NOTE | ~2017-05-05 | HP ---
Unit #: [id number] #: [id number] Patient: TESSA JUSTIN [id number] [facility] [address] [place] [address] [id number] MR#: [id number] NAME: TESSA JUSTIN ROOM: P207 Age: 46 Sex: M Admission Date: 05/05/2017 : 1970 Attending Physician: Anish Ramos M.D. Admitting Physician: Anish Ramos M.D. Primary Care Physician: Gabriele Valencia M.D. HISTORY AND PHYSICAL Tessa is a 46-year-old male who was admitted on 05/05/2017 for detox from alcohol. He has multiple previous admissions for the same and is well known to this facility. He was recently admitted on 04/19/2017. I have reviewed the history and physical from that admission and there are no changes. Dictated by... Doug Dean/dung TD: 05/05/2017 15:45 JOB #: [id number] HISTORY AND PHYSICAL Page 1 of 1 X KAVEH DELA CRUZ APRN HISTORY AND PHYSICAL
== END 2017-05-08 14:55 | disposition home or self-care (01) | DRG 897 ==
LOC: P2S 11:34
PROC: HZ2ZZZZ Detoxification Services for Substance Abuse Treatment (ICD-10-PCS; principal; 2017-05-05)
DX: F10.10 Alcohol abuse, uncomplicated (principal); R45.851 Suicidal ideations; I10 Essential (primary) hypertension; N40.0 Benign prostatic hyperplasia without lower urinary tract symptoms; J44.9 Chronic obstructive pulmonary disease, unspecified; D17.9 Benign lipomatous neoplasm, unspecified; F60.2 Antisocial personality disorder; G25.81 Restless legs syndrome; E66.9 Obesity, unspecified; Z68.35 Body mass index [BMI] 35.0-35.9, adult

== ENCOUNTER 2017-05-10 19:03 | Emergency (ER) | payer OTHER | END 2017-05-10 21:53 | disposition home or self-care (01) | LOC: CED 19:03 | DX: J44.1 Chronic obstructive pulmonary disease with (acute) exacerbation (principal); F10.129 Alcohol abuse with intoxication, unspecified; F17.200 Nicotine dependence, unspecified, uncomplicated; Z88.8 Allergy status to other drugs, medicaments and biological substances; Z79.899 Other long term (current) drug therapy | CPT/HCPCS: 99284 ==